=== PATIENT | male | born 1970 | race Caucasian/White ===

== ENCOUNTER 2023-08-25 12:41 | Inpatient (IN) ==
[2023-08-25] MEDS: ONDANSETRON INJ 2 MG/ML 2 ML VIAL IV STA (13:05)
[2023-08-25 13:20] LABS: Basophils # (auto) 0.04 K/uL (0.00-0.20); Basophils % (auto) 0.8 %; Eosinophils # (auto) 0.16 K/uL (0.00-0.50); Eosinophils % (auto) 3.1 %; Hematocrit (blood only) 44.8 % (42.0-52.0); Hemoglobin 15.4 g/dl (14.0-18.0); Immature Granulocytes # (auto) 0.02 K/uL (0.01-0.20); Immature Granulocytes % (auto) 0.4 %; Lymphocytes # (auto) 1.53 K/uL (1.20-3.40); Lymphocytes % (auto) 29.5 %; Mean Corpuscular Hemoglobin 29.6 pg (25.0-34.0); Mean Corpuscular Hgb Conc 34.4 g/dL (32.0-36.0); Mean Corpuscular Volume 86.2 fL (80.0-100.0); Mean Platelet Volume 11.1 fL (9.4-12.4); Monocytes # (auto) 0.36 K/uL (0.11-0.59); Monocytes % (auto) 6.9 %; Neutrophils # (auto) 3.08 K/uL (1.40-6.50); Neutrophils % (auto) 59.3 %; Platelet Count 151 K/uL (130-400); RDW Coefficient of Variation 12.7 % (11.5-14.5); RDW Standard Deviation 39.4 fL (36.4-46.3); White Blood Count 5.19 K/ul (4.8-10.8)
--- NOTE | 2023-08-25 13:23 | XRay Report ---
SINGLE VIEW CHEST CLINICAL HISTORY: Atypical chest pain FINDINGS: A PA chest radiograph is compared to chest x-ray and chest CT dated 07/01/2023. The cardiome diastinal silhouette is unremarkable. The lungs and pleural spaces are clear. No pneumothorax is seen . The bony thorax is grossly intact. IMPRESSION: No active disease in the chest. ACT 112: Negative or not required by law. Electronically signed by: Philip Dwyer M.D. 08/25/2023 1:21 PM
--- NOTE | 2023-08-25 13:35 | Emergency Department Note ---
Impression & Plan Precordial chest pain, Exertional chest pain, Acute electrocardiogram changes ED Provider Note NAME: REX SUNSHINE AGE: 52 SEX: M : 1970 ARRIVES VIA: Walk-In INFORMANT: [Patient] ED PROVIDER(S): [Philip Crenshaw MD] CHIEF COMPLAINT: Chest pain HISTORY OF PRESENT ILLNESS: The patient is a 52-year-old male who states that he has had exertional chest pain for really 3 months. He was seen in the ED in June of this year and had negative cardiac troponin testing. Patient has noticed escalating symptoms over the last several weeks. His symptoms are exertional. He feels short of breath and feels some burning in the chest with exertion that seems to go away with rest. He feels dizzy at times. The patient had a stress test today at [facility] and failed. He was sent to the hospital for admission and cardiac catheterization. Patient states that he has never had complete resolution of his chest pain since the stress test. He has some mild discomfort right now although, the pain is not as severe as it was during the stress test. He does not currently feel short of breath. He states he was given aspirin prior to being sent to this ED. PMHx/PSHx/Social Hx: See Below PHYSICAL EXAM: GENERAL: Patient is in no acute distress. HEENT: No acute trauma, normocephalic atraumatic, mucous membranes moist, no nasal congestion. NECK: No stridor, no adenopathy, no meningismus, trachea is midline. LUNGS: Clear to auscultation bilaterally, no wheeze, no rhonchi, breath sounds equal. HEART: Without murmurs gallops or rubs, regular rate and rhythm. ABDOMEN: Soft, nontender, no peritonitis. EXTREMITIES: No cyanosis, full range of motion of all the joints without pain or difficulty. NEUROLOGIC: Oriented x 3, no acute motor or sensory deficits, no focal weakness. SKIN: No jaundice, no diaphoresis. DIFFERENTIAL DIAGNOSIS: NM, angina, cardiac ischemia, anemia, bronchitis. EMERGENCY DEPARTMENT PROCEDURES: MEDICAL DECISION MAKING: There is no leukocytosis or concerning anemia. There is a normal platelet count. No renal failure or significant electrolyte abnormality. No concerning liver enzyme elevation. No evidence for pancreatitis. ECG shows a sinus rhythm with some subtle changes to the T waves along the anterior and lateral leads. These changes were new compared to a recent ECG on file. Cardiac enzyme testing x 1 was not consistent with acute cardiac injury. Chest x-ray did not show mediastinal widening, pneumonia or pneumothorax. On exam, patient was complaining of some chest discomfort that had been persisting since his failed stress test earlier. The patient was aggressively managed. He received sublingual nitroglycerin and then nitroglycerin paste. He was given 4 mg of IV Zofran. He was ordered for a bolus of IV heparin and placed on a heparin drip. The patient is feeling better since the treatment mentioned above. I did reach out and speak with Dr. Osorio of cardiology. The patient is going to go to the cardiac catheterization laboratory this afternoon. He is to be kept NPO. I spoke with case management, I spoke with the patient and his family. The on- call hospitalist was consulted. Prior/Outside records/notes reviewed: neeraj cardiology note from earlier today discussing his failed stress testing. ECG per my interpretation: Indication was chest pain. The ECG shows a normal sinus rhythm with a rate of 61. There are some subtle nonspecific T wave changes noted in the anterior and lateral leads. There is no acute ST elevation, no PVCs. The QTc is 392. Compared to an ECG from a 01 July 2023, the nonspecific ST change seen anterior and laterally appears new. Repeat ECG per my interpretation: Indication was chest pain. The ECG shows a normal sinus rhythm with some nonspecific change primarily in the anterior and lateral leads. There is no ST elevation, no PVCs. The QTc is 420. Compared to an ECG from earlier today, there is no significant change. Continuous Cardiac Monitoring per my interpretation: An order was placed for continuous cardiac monitoring. The monitor shows a rate of 62 with normal sinus rhythm. Imaging/x-ray results per my interpretation: Chest x-ray does not show mediastinal widening, pneumonia or pneumothorax. Chronic Medical/Social conditions affecting care: Care/Management discussed with: Case management, the on-call hospitalist. [facility] Curran, Dr. Osorio. Level of care consideration(s): After review of the information above and other included data: --I believe the patient requires escalation of care to admission Critical Care Note: I have personally spent 45 minutes of critical care time in the direct management of this patient. This includes bedside care, interpretation of diagnostic studies, and testing, discussion with consultants, patient, and family members, and other required patient management activities. This 45 minutes is in excess of all separately billable procedures. DISPOSITION: Admission with cardiology consult Past Med/Surg History Medical History Dyslipidemia Lumbar herniated disc BPH (benign prostatic hyperplasia) Family history of heart disease father had heart attack Sleep apnea cpap Situational anxiety Hypothyroidism H/O hemorrhoids H/O testicular cancer dx 2006, sx tx. H/O alcohol abuse quit 3 years ago Surgical History S/P epidural steroid injection [place] teeth removed S/P hemorrhoidectomy S/P colonoscopy Precancerous polyp, 2018 w/ 5 yrs f/u S/P orchiectomy S/P vasectomy S/P appendectomy Family History Father Myocardial infarction Gallbladder disease Heart disease Dementia Brother Dyslipidemia Denies family history of Ovarian cancer Prostate cancer Breast cancer Colorectal cancer Social History Smoking Status: Never smoker Second Hand Exposure: No; Do You Dip or Chew Tobacco: No; Hx Alcohol Use: No Hx Substance Use: No Preferred Language: Khmer Communication Ability: Effective Visual Impairment: No Limitations Hearing Ability: Normal Traffic Lieutenant Required: No Beliefs That Will Affect Care: None marital status: Current Living Situation: Spouse current occupational status: employed current occupation: [employer] How many Children do You have: 3 Feels Safe at Home: Yes Childhood Exposure to Second-Hand Smoke: No Diet: regular caffeine: Yes during the past year weight has: remained stable Dental Care, Regularly: Yes Physical Activity Frequency: Daily Seatbelt Use: always Sunscreen Use: Yes Assistive Devices: CPAP and Glasses Allergies Allergies Allergy/AdvReac Type Severity Reaction Status Date / Time No Known Allergies Allergy Verified 07/22/23 13:38 Home Meds Home Medications Medication Instructions Recorded Confirmed cholecalciferol (vitamin D3) 50 50 mcg PO QAM 03/06/21 08/25/23 mcg (2,000 unit) capsule lutein 20 mg capsule 20 mg PO QAM 03/06/21 08/25/23 Medical Marijuana 10 mg PO UD PRN Pain/stress 04/28/23 08/25/23 rosuvastatin 10 mg tablet 20 mg PO QAM 04/28/23 08/25/23 [place] Fish Oil 1 cap PO QAM 07/01/23 08/25/23 Previous Rx's Medication Instructions Recorded propranolol 10 mg tablet 10 mg PO BID PRN performance 10/02/22 anxiety #60 tabs levothyroxine 75 mcg capsule 75 mcg PO QAM #90 caps 05/07/23 alfuzosin 10 mg tablet,extended 10 mg PO HS #90 tabs 07/07/23 release 24 hr (Uroxatral) finasteride 5 mg tablet 5 mg PO HS #90 tabs 07/07/23 Results & Data (ED) Vital Signs Vital Signs - 24 hr 08/25/23 12:47 08/25/23 14:30 08/25/23 14:30 Temperature 36.1 C L Temperature Source Temporal Artery Scan Pulse Rate 59 L 56 L Pulse Rate [Left Finger] Pulse Rate from SpO2 Sensor 55 L Pulse Rhythm [Left Finger] Pulse Strength [Left Finger] Respiratory Rate 18 15 Respiratory Effort / Characteristics Non-Labored Spontaneous Respiratory Depth Normal Respiratory Pattern Regular Blood Pressure 130/79 116/73 Blood Pressure [Right Arm] Blood Pressure Mean 96 79 Blood Pressure Mean [Right Arm] Blood Pressure Position [Right Arm] Pulse Oximetry 94 96 Oxygen Delivery Method Room Air Sepsis Recent Fever Within 48 Hours No Sepsis New/Unexplained Change in Mental Status N/A Sepsis Action Taken by Nursing No Action Required 08/25/23 14:43 08/25/23 15:10 Temperature Temperature Source Pulse Rate 62 Pulse Rate [Left Finger] 85 Pulse Rate from SpO2 Sensor Pulse Rhythm [Left Finger] Regular Pulse Strength [Left Finger] Normal Respiratory Rate 16 Respiratory Effort / Characteristics Non-Labored Respiratory Depth Normal Respiratory Pattern Regular Blood Pressure Blood Pressure [Right Arm] 132/81 Blood Pressure Mean Blood Pressure Mean [Right Arm] 98 Blood Pressure Position [Right Arm] Lying Pulse Oximetry 100 Oxygen Delivery Method Room Air Sepsis Recent Fever Within 48 Hours Sepsis New/Unexplained Change in Mental Status Sepsis Action Taken by Fdc Medications Current Medication List: was personally reviewed by me Laboratory Data Attestation: I reviewed the patient's lab results. 08/25/23 12:59 08/25/23 12:59 Lab Results 08/25/23 Range/Units 12:59 WBC 5.19 (4.8-10.8) K/ul RBC 5.20 (4.70-6.10) M/uL Hgb 15.4 (14.0-18.0) g/dl Hct 44.8 (42.0-52.0) % MCV 86.2 (80.0-100.0) fL MCH 29.6 (25.0-34.0) pg MCHC 34.4 (32.0-36.0) g/dL RDW Std Deviation 39.4 (36.4-46.3) fL RDW Coeff of [place] 12.7 (11.5-14.5) % Plt Count 151 (130-400) K/uL MPV 11.1 (9.4-12.4) fL Immature Gran % (Auto) 0.4 % Neut % (Auto) 59.3 % Lymph % (Auto) 29.5 % Camp % (Auto) 6.9 % Eos % (Auto) 3.1 % Baso % (Auto) 0.8 % Neut # (Auto) 3.08 (1.40-6.50) K/uL Lymph # (Auto) 1.53 (1.20-3.40) K/uL Camp # (Auto) 0.36 (0.11-0.59) K/uL Eos # (Auto) 0.16 (0.00-0.50) K/uL Baso # (Auto) 0.04 (0.00-0.20) K/uL Immature Gran # (Auto) 0.02 (0.01-0.20) K/uL Sodium 140 (136-145) mmol/L Potassium 3.7 (3.5-5.1) mmol/L Chloride 109 H (98-107) mmol/L Carbon Dioxide 25 (21-32) mmol/L Anion Gap 6 (3-11) BUN 16 (6-23) mg/dl Creatinine 0.88 (0.6-1.4) mg/dl Est Cr Clr Drug Dosing 122.3 ml/min Est GFR ( Amer) 115.3 ml/min Est GFR (Non-Af Amer) 99.5 ml/min BUN/Creatinine Ratio 18.2 (10-20) Glucose 96 (70-99(Fasting)) mg/dl Calcium 9.2 (8.6-10.3) mg/dl Magnesium 2.1 (1.7-2.4) mg/dl Total Bilirubin 0.7 (0.2-1.0) mg/dl AST 22 (13-39) U/L ALT 26 (7-52) U/L Alkaline Phosphatase 57 (34-104) U/L Troponin I High Sens 3.8 (0-20) pg/ml Total Protein 6.8 (6.0-8.3) gm/dl Albumin 4.5 (3.4-5.0) gm/dl Globulin 2.3 L (2.5-4.0) gm/dl Albumin/Globulin Ratio 2.0 (0.9-2) Lipase 15 (11-82) U/L Administered Medications Heparin Sodium/Dextrose (Heparin Sodium/Dextrose) 25,000 units in 500 mls @ 20 mls/hr IV .Q24H [facility]; Protocol Stop: 09/24/23 13:59 Last Admin: 08/25/23 14:34 Dose: 1,000 units/hr, 20 mls/hr Documented By: OC Co-signed By: GGG Discontinued Medications Heparin Sodium (Porcine) (Heparin Sod (Porcine) 1000 Unit/Ml) 4,000 units IV NOW ONE Stop: 08/25/23 14:16 Last Admin: 08/25/23 14:35 Dose: 4,000 units Documented By: OC Co-signed By: ROBERT Nitroglycerin (Nitroglycerin 2% Ointment 30gm Tube) 1 inch EXT NOW STA Stop: 08/25/23 13:29 Last Admin: 08/25/23 13:38 Dose: 1 inch Documented By: OC Nitroglycerin (Nitroglycerin Sl 0.4 Mg/Tab Tab) 0.4 mg SL NOW STA Stop: 08/25/23 13:36 Last Admin: 08/25/23 13:37 Dose: 0.4 mg Documented By: OC Ondansetron HCl (Ondansetron Inj 2 Mg/Ml 2 Ml Vial) 4 mg IV NOW STA Stop: 08/25/23 13:05 Last Admin: 08/25/23 13:05 Dose: Not Given Documented By: AMADA Imaging Data Radiologist's Impression: Chest X-Ray 08/25/23 12:50 SINGLE VIEW CHEST CLINICAL HISTORY: Atypical chest pain FINDINGS: A PA chest radiograph is compared to chest x-ray and chest CT dated 07/01/2023. The cardiomediastinal silhouette is unremarkable. The lungs and pleural spaces are clear. No pneumothorax is seen. The bony thorax is grossly intact. IMPRESSION: No active disease in the chest. ACT 112: Negative or not required by law. Electronically signed by: Philip Dwyer M.D. 08/25/2023 1:21 PM Discharge Plan Visit Data Chief Complaint: Referred by Doctor Stated Complaint: FAILED STRESS TEST 08/25/23 - REF BY DR CURRAN ED Provider: Philip Crenshaw Discharge Problem: Precordial chest pain, Exertional chest pain, Acute electrocardiogram changes Patient Disposition: Admitted As Inpatient Condition: Serious Discharge Instructions Interventions: ED Discharge Assessment Last Done: 08/25/23 14:58
[2023-08-25] MEDS: NITROGLYCERIN SL 0.4 MG/TAB TAB SL STA (13:37)
[2023-08-25] MEDS: NITROGLYCERIN 2% OINTMENT 30GM TUBE EXT STA (13:38)
[2023-08-25 13:43] LABS: Albumin Level 4.5 gm/dl (3.4-5.0); Bilirubin,Total 0.7 mg/dl (0.2-1.0); Calcium 9.2 mg/dl (8.6-10.3); Potassium 3.7 mmol/L (3.5-5.1)
[2023-08-25] MEDS ORDERED: Heparin IV Adult Wt-Based Low-Dose w/ INITIAL Bolus Protocol IV SCH (13:45)
[2023-08-25 13:49] LABS: BUN Creatinine Ratio 18.2 (10-20); Creatinine Clr Calc Pharmacy 122.3 ml/min; Est GFR (African American) 115.3 ml/min; Est GFR (Non-African American) 99.5 ml/min; Globulin 2.3 gm/dl (2.5-4.0); Total Protein 6.8 gm/dl (6.0-8.3)
[2023-08-25] MEDS ORDERED: HEPARIN SOD (PORCINE) 1000 UNIT/ML IV ONE (13:50)
[2023-08-25 13:52] LABS: Troponin I High Sensitivity 3.8 pg/ml (0-20)
--- NOTE | 2023-08-25 14:08 | History & Physical Report ---
Date of Service August 25, 2023 Assessment & Plan (1) Abnormal stress test: Plan: -Admit to the PCU on tele and pulse oximetry -Currently stable but with ongoing 2/10 left-sided chest pain while at rest -Was sent to the ED from [facility] after he failed his outpatient stress test this am -Initial high sen trop in the ED was WNL but patient reportedly had dynamic ECG changes during his stress test -Was given one dose of SL Nitroglycerine, started on 1 inch of Nitroglycerine paste, and started on a low dose, weight based heparin drip w/bolus prior to admission -Patient was given full dose aspirin prior to ED arrival per the ED staff -Will continue heparin drip and nitroglycerine past at this time -Spoke with [facility], consult placed >They will be taking the patient to the labor and delivery registered nurse shortly -Will start prn Morphine for recurrent chest pain -Will wait for Cardiac Cath results for further management -NPO until stable from a cardiac standpoint -Heparin drip for DVT PPX -Will continue to trend high sen trop overnight -AM CBC, CMP, mag, PT/INR (2) Hypothyroidism: Plan: -Continue levothyroxine (3) Dyslipidemia: Plan: -Continue statin Plan The patient was discussed with Dr. Owens at the time of the admission History of Present Illness Chief Complaint: Chest pain/abnormal ECG during outpatient stress test Primary Care Provider: Zacarias Grayson, III, DIDI Brain is a 52 year old male with a PMH significant for hyperlipidemia, previous shingles infection of the left chest/back, BPH, and hypothyroidism who was sent to the [facility] ED from [facility] on 08/25/23 after he failed an outpatient stress test. Per the ED staff who spoke with the [facility] team, the patient has been having ongoing left sided chest pain and LAYNE since June. He was seen in the [facility] last week by Dr. Figueroa who scheduled the stress test for today. During the stress test the patient experienced recurrend left sided chest pain with LAYNE and dynamica changes on his ECG. The [facility] team report that his echocardiogram was WNL during the stress test. On arrival to the ED he remained stable. He was still experiencing chest pain on arrival and was given one dose of SL nitroglycerine, 1 inch of nitroglycerine paste, and was started on a low-dose, weight based heparin drip w/bolus. At the time of the exam the patient was sitting in bed in no acute distress with his bedside. He confirms the above history. He was also diagnosed with shingles on the left chest/back in June and completed treatment. He confirms that the chest pain he has been continuing to experience is located in the left anterior chest and does not follow the distribution of his previous shingles infection. The pain is described as a sharp/pressure like sensation in the left anterior chest that is exacerbated with exertion and takes up to 30 minutes to dissipate after he rests. His pain is currently a 2/10 after receiving the initial treatment in the ED. He denies a previous hx of Cardiac disease, but his father had a CABG at the age of 41. He denies tobacco use. Please refer to Dr. Owens's attestation for any changes to the treatment plan Allergies Allergy/AdvReac Type Severity Reaction Status Date / Time No Known Allergies Allergy Verified 07/22/23 13:38 Home Medications Medication Instructions Recorded Confirmed Type cholecalciferol (vitamin D3) 50 50 mcg PO QAM 03/06/21 08/25/23 History mcg (2,000 unit) capsule lutein 20 mg capsule 20 mg PO QAM 03/06/21 08/25/23 History propranolol 10 mg tablet 10 mg PO BID PRN performance 10/02/22 08/25/23 Rx anxiety #60 tabs Medical Marijuana 10 mg PO UD PRN Pain/stress 04/28/23 08/25/23 History rosuvastatin 10 mg tablet 20 mg PO QAM 04/28/23 08/25/23 History levothyroxine 75 mcg capsule 75 mcg PO QAM #90 caps 05/07/23 08/25/23 Rx [place] Fish Oil 1 cap PO QAM 07/01/23 08/25/23 History alfuzosin 10 mg tablet,extended 10 mg PO HS #90 tabs 07/07/23 08/25/23 Rx release 24 hr (Uroxatral) finasteride 5 mg tablet 5 mg PO HS #90 tabs 07/07/23 08/25/23 Rx Past Med/Surg History Medical History (Updated 08/25/23 @ 14:56 by Felipe Hairston PA-C) Dyslipidemia Lumbar herniated disc BPH (benign prostatic hyperplasia) Family history of heart disease father had heart attack Sleep apnea cpap Situational anxiety Hypothyroidism H/O hemorrhoids H/O testicular cancer dx 2007, sx tx. H/O alcohol abuse quit 3 years ago Surgical History S/P epidural steroid injection [place] teeth removed S/P hemorrhoidectomy S/P colonoscopy Precancerous polyp, 2018 w/ 5 yrs f/u S/P orchiectomy S/P vasectomy S/P appendectomy Family History Father Myocardial infarction Gallbladder disease Heart disease Dementia Brother Dyslipidemia Denies family history of Ovarian cancer Prostate cancer Breast cancer Colorectal cancer Social History Smoking Status: Never smoker Second Hand Exposure: No; Do You Dip or Chew Tobacco: No; Hx Alcohol Use: No Hx Substance Use: No Preferred Language: Icelandic Communication Ability: Effective Visual Impairment: No Limitations Hearing Ability: Normal Marriage And Family Counselor Required: No Beliefs That Will Affect Care: None marital status: Current Living Situation: Spouse current occupational status: employed current occupation: [employer] How many Children do You have: 3 Feels Safe at Home: Yes Childhood Exposure to Second-Hand Smoke: No Diet: regular caffeine: Yes during the past year weight has: remained stable Dental Care, Regularly: Yes Physical Activity Frequency: Daily Seatbelt Use: always Sunscreen Use: Yes Assistive Devices: CPAP and Glasses Physical Exam Physical Exam: Physical Exam: General: In no acute distress, stated age, well-nourished, non-toxic appearing HEENT: Normocephalic, atraumatic, no scleral icterus, pupils around round, symmetrical, and reactive to light, moist mucus membranes, trachea midline, no thyromegaly Chest/Pulm: No reproducible pain on palpation of the chest, No respiratory distress, symmetrical chest expansion, clear breath sounds throughout Cardiac: RRR, no murmurs noted Abdomen: Negative for ascites and bruising, normoactive bowel sounds, soft, non-tender to palpation throughout Musculoskeletal: Symmetrical and without signs of acute trauma, upper and lower extremities with full ROM, no atrophy, spasticity, or flaccidity Extremities: Radial, dorsalis pedis, and posterior tibial pulses are intact and symmetrical, no edema noted in the BL LE's Skin: Warm, dry, no rashes , lesions, or scars noted Neuro: Alert and oriented to person, place, month, year, and president, no focal defects, no tremors noted Psych: No acute distress, calm and cooperative during the exam Results & Data Results & Data Vital Signs (Past 12 Hours) Vital Signs Temp Pulse Resp BP Pulse Ox O2 Del Method 08/25/23 12:47 36.1 C L 59 L 18 130/79 94 Room Air Laboratory Results Abnormal lab results 08/25/23 Range/Units 12:59 Chloride 109 H (98-107) mmol/L Globulin 2.3 L (2.5-4.0) gm/dl Diagnostic Findings Chest X-Ray 08/25/23 12:50 SINGLE VIEW CHEST CLINICAL HISTORY: Atypical chest pain FINDINGS: A PA chest radiograph is compared to chest x-ray and chest CT dated 07/01/2023. The cardiomediastinal silhouette is unremarkable. The lungs and pleural spaces are clear. No pneumothorax is seen. The bony thorax is grossly intact. IMPRESSION: No active disease in the chest. ACT 112: Negative or not required by law. Electronically signed by: Philip Dwyer M.D. 08/25/2023 1:21 PM ECG Additional Comments: Normal sinus rhythm Nonspecific T wave abnormality Abnormal ECG When compared with ECG of 01-JUL-2023 09:35, No significant change was found Code Status & VTE Plan Code Status Full code VTE Prophylaxis Plan VTE Prophylaxis will be ordered: Yes Supervising Physician Co-Signing Physician Notes Patient seen and examined, chart reviewed, case discussed with Felipe Hairston PA-C and I agree with the assessment and plan as above except as otherwise noted Labs and images reviewed 52-year-old male with past medical history of hyperlipidemia, prior shingles, hypothyroidism who presents for evaluation after a failed outpatient stress test. He is seen at the bedside following both [facility] and cardiology evaluation. Continues to have a bandlike left-sided chest pain 2/10 despite nitro, Nitropaste, morphine treatment. He has been heparinized. He is to be taken within the next 15 minutes to cardiac cath for ischemic evaluation. Lungs are c lear, legs are without pitting edema. Agree with assessment and management above. Further recommendations pending cath result PG Care Time/CCT Total # of Minutes Spent Total Time Spent with Patient: Total time spent is greater than 50% in coordination of care (as documented) at patient's floor/unit and/or counseling patient: [place] [address] INT INP/OBS CARE 3/75MIN Patient Type Established Medical Decision Making High Complexity Diagnoses Abnormal stress test R94.39 Hypothyroidism E03.9 Dyslipidemia E78.5
[2023-08-25 14:18] LABS: Magnesium 2.1 mg/dl (1.7-2.4)
[2023-08-25] MEDS ORDERED: MoRPHine SULFATE 2 MG/ML CARP IV PRN (14:19)
[2023-08-25] MEDS: HEPARIN SODIUM/DEXTROSE 25,000 UNITS/500 ML BAG IV SCH (14:34)
[2023-08-25] MEDS: HEPARIN SOD (PORCINE) 1000 UNIT/ML IV ONE (14:35)
[2023-08-25] MEDS: NITROGLYCERIN/D5W 100MCG/ML 20ML SYR ONE (16:15)
[2023-08-25] MEDS: niCARdipine HCL INJ 2.5 MG/ML 10 ML AMP ONE (16:15)
--- NOTE | 2023-08-25 17:09 | Pre Anesthesia Assessment ---
Date of Service August 25, 2023 Pre Sedation Assessment Vital Signs Temp Pulse Pulse Resp BP BP Pulse Ox 08/25/23 15:10 85 16 132/81 100 08/25/23 14:43 62 08/25/23 14:30 116/73 08/25/23 14:30 56 L 15 96 08/25/23 12:47 36.1 C L 59 L 18 130/79 94 O2 Del Method 08/25/23 15:10 Room Air 08/25/23 14:43 08/25/23 14:30 08/25/23 14:30 08/25/23 12:47 Room Air Cardiovascular RRR, no murmur, no edema Respiratory normal respiratory effort, lungs clear to auscultation Pre-Sedation Airway Assessment Smoking Status: Never smoker Mallampati 2 ASA 3 Notes The planned sedation has been discussed with the patient. Informed Consent was obtained. I have identified the patient, determined the appropriateness of sedation and have assessed the patient immediately prior to the procedure. All medicine(s) and interventions are by my order.
--- NOTE | 2023-08-25 17:12 | Post Anesthesia Assessment ---
Date of Service August 25, 2023 Post Sedation Assessment Vital Signs Temp Pulse Pulse Resp BP BP Pulse Ox 08/25/23 15:10 85 16 132/81 100 08/25/23 14:43 62 08/25/23 14:30 116/73 08/25/23 14:30 56 L 15 96 08/25/23 12:47 36.1 C L 59 L 18 130/79 94 O2 Del Method 08/25/23 15:10 Room Air 08/25/23 14:43 08/25/23 14:30 08/25/23 14:30 08/25/23 12:47 Room Air Recovery Score Activity: Moves 4 extremities Respiration: Deep Breath/Cough Circulation: +/-20% PreAnes Value Consciousness: Fully Awake Oxygen Saturation: > 92% On Room Air Discharge Sedation Level of Care: Fast Track Phase II Post Sedation Plan On clinical assessment, the patient appears to have tolerated the sedation without complications. Patient is recovering as anticipated. Patient will continue to be monitored by nursing and may be discharged when sedation discharge criteria are met per below protocol. Upon Completions of procedure up to 15 minutes continue every 5 minute vital signs and the P.A.R. score; then discharge to a Phase I or Fast Track to Phase II per the following guidelines: * Discharge Patient to appropriate Phase II area if PAR is 8 or greater or r eturn to pre- procedure baseline. The post - procedure orders will be as directed. * If PAR score is less than 8 or not return to pre-procedure baseline then patient will follow Phase I monitoring till PAR is reached for Phase II. The Phase I may be done in procedure room or may call to secure a Phase I area. * If naloxone or flumazenil are used for reversal, hold in Phase I for continued monitoring from when last reversal dose was given for a minimum of 60 minutes or longer pending the nurse and/or physician discretion of patient condition before discharge to Phase II. Please call the Sedation Physician to re-evaluate and complete post-note for discharge to Phase II area. Do NOT discharge from procedure sedation or Phase 1 until post- sedation evaluation note is complete by procedure /sedation MD Sedation Discharge Instructions to be given to the patient at discharge to home. [facility] Procedure Codes (Charges) Indication for Procedure Indication for procedure: Unstable angina Sedation/Anesthesia Procedure 1: Sedation/Anesthesia: 72481 Mod Sedation by the same physician;Init15 Min Child Age 5 & Up (Initial 15 min start 1544) Total Sedation Time (minutes): 61 Procedure 2: Sedation/Anesthesia: 22949 Mod Sedation by the same physician; Ea [id number] Minutes (Additional 46 min, end time 1645) Total Sedation Time (minutes): 61
--- NOTE | 2023-08-25 17:24 | Electrocardiogram Report ---
Test Reason : Blood Pressure : / mmHG Vent. Rate : 061 BPM Atrial Rate : 061 BPM P-R Int : 172 ms QRS Dur : 088 ms QT Int : 418 ms P-R-T Axes : 029 045 046 degrees QTc Int : 420 ms Normal sinus rhythm Nonspecific T wave abnormality Abnormal ECG When compared with ECG of 01-JUL-2023 09:35, No significant change was found Confirmed by Kaden Cabrera ([id number]) on 08/25/2023 5:23:56 PM Referred By: REFERRED SELF Confirmed By:Geoff Cabrera
--- NOTE | 2023-08-25 17:38 | Cardiology Consultation ---
Date of Consultation August 25, 2023 Assessment & Plan (1) Coronary artery disease involving lower sioux coronary artery with unstable angina pectoris: (2) Abnormal stress test: (3) Postherpetic neuralgia: (4) Dyslipidemia, goal LDL below 70: Plan 52-year-old male with recurrent resting anginal symptoms post stress testing. Recommend addition of IV heparin. Risk, benefit, and alternative to coronary angiography discussed. He is agreeable to proceed. Cardiac catheterization will be performed today with Dr. Rivera. Continue aspirin and high intensity statin therapy. Consider addition of low-dose beta-yudith during hospitalization. Further recommendations pending result of cardiac catheterization. I spent a total of 45 minutes on the date of service in preparation, delivery, and documentation of the care provided to this patient, excluding any time spent in the performance of separately billed services. History of Present Illness Reason for Consultation: Abnormal stress test Requesting Physician: Felipe Hairston PA-C Attending Physician: Keagan Owens MD History of Present Illness 52-year-old male recently evaluated by the undersigned in the outpatient setting due to chest discomfort. He was referred today to the cardiology clinic at [facility] for exercise stress testing. During the stress test, patient developed anginal symptoms and ST depressions. Symptoms initially resolved with rest and occurred shortly after stress testing completed. He was treated with sublingual nitroglycerin and referred to the ER. In the ER, patient again noted with current chest discomfort. Mild improvement with sublingual nitroglycerin. Topical nitrates applied. Currently notes waxing and waning chest discomfort ranging from 2/10 up to 4/10. No associated shortness of breath, nausea, radiation, or diaphoresis. Recent history significant for shingles infection involving left side of his torso. present at bedside. She offers no additional concerns/complaints. Allergies Allergy/AdvReac Type Severity Reaction Status Date / Time No Known Allergies Allergy Verified 07/22/23 13:38 Home Medications Medication Instructions Recorded Confirmed Type cholecalciferol (vitamin D3) 50 50 mcg PO QAM 03/06/21 08/25/23 History mcg (2,000 unit) capsule lutein 20 mg capsule 20 mg PO QAM 03/06/21 08/25/23 History propranolol 10 mg tablet 10 mg PO BID PRN performance 10/02/22 08/25/23 Rx anxiety #60 tabs Medical Marijuana 10 mg PO UD PRN Pain/stress 04/28/23 08/25/23 History rosuvastatin 10 mg tablet 20 mg PO QAM 04/28/23 08/25/23 History levothyroxine 75 mcg capsule 75 mcg PO QAM #90 caps 05/07/23 08/25/23 Rx [place] Fish Oil 1 cap PO QAM 07/01/23 08/25/23 History alfuzosin 10 mg tablet,extended 10 mg PO HS #90 tabs 07/07/23 08/25/23 Rx release 24 hr (Uroxatral) finasteride 5 mg tablet 5 mg PO HS #90 tabs 07/07/23 08/25/23 Rx Patient History Medical History Dyslipidemia Lumbar herniated disc BPH (benign prostatic hyperplasia) Family history of heart disease father had heart attack Sleep apnea cpap Situational anxiety Hypothyroidism H/O hemorrhoids H/O testicular cancer dx 2006, sx tx. H/O alcohol abuse quit 3 years ago Surgical History S/P epidural steroid injection [place] teeth removed S/P hemorrhoidectomy S/P colonoscopy Precancerous polyp, 2018 w/ 5 yrs f/u S/P orchiectomy S/P vasectomy S/P appendectomy Family History Father Myocardial infarction Gallbladder disease Heart disease Dementia Brother Dyslipidemia Denies family history of Ovarian cancer Prostate cancer Breast cancer Colorectal cancer Social History Smoking Status: Never smoker Second Hand Exposure: No; Do You Dip or Chew Tobacco: No; Hx Alcohol Use: No Hx Substance Use: No Preferred Language: Divehi Communication Ability: Effective Visual Impairment: No Limitations Hearing Ability: Normal Gis Database Administrator Required: No Beliefs That Will Affect Care: None marital status: Current Living Situation: Spouse current occupational status: employed 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 How many Children do You have: 3 Feels Safe at Home: Yes Childhood Exposure to Second-Hand Smoke: No Diet: regular caffeine: Yes during the past year weight has: remained stable Dental Care, Regularly: Yes Physical Activity Frequency: Daily Seatbelt Use: always Sunscreen Use: Yes Assistive Devices: CPAP and Glasses Review of Systems Review of Systems: All systems reviewed & are unremarkable except as noted in Subjective Physical Exam Constitutional: well nourished; no acute distress Respiratory: no respiratory distress, no labored breathing and no retractions Auscultation: no crackles, no rales, no rhonchi and no wheezes Cardiovascular: Rate/Rhythm: regular rate and regular rhythm Heart Sounds: normal S1 and normal S2 Vessels: no JVD and no carotid bruit Extremities: no edema Gastrointestinal (Abdomen): Inspection/Auscultation: abdomen normal to inspection and normal bowel sounds; abdomen not distended Percussion/Palpation: abdomen soft; abdomen nontender, no guarding and abdomen not rigid Neurologic: CN's II-XI intact bilaterally and moves all extremities; no focal motor deficits Results & Data Vital Signs (Past 12 Hours) Vital Signs Temp Pulse Pulse Resp BP BP BP 08/25/23 17:15 36.6 C 54 L 17 109/71 08/25/23 17:00 36.3 C L 50 L 17 120/75 08/25/23 15:10 85 16 132/81 08/25/23 14:43 62 08/25/23 14:30 116/73 08/25/23 14:30 56 L 15 08/25/23 12:47 36.1 C L 59 L 18 130/79 Pulse Ox O2 Del Method 08/25/23 17:15 97 Room Air 08/25/23 17:00 96 Room Air 08/25/23 15:10 100 Room Air 08/25/23 14:43 08/25/23 14:30 08/25/23 14:30 96 08/25/23 12:47 94 Room Air Laboratory Results Cardiac Enzymes 08/25/23 Range/Units 12:59 AST 22 (13-39) U/L Troponin I High Sens 3.8 (0-20) pg/ml CBC 08/25/23 Range/Units 12:59 WBC 5.19 (4.8-10.8) K/ul RBC 5.20 (4.70-6.10) M/uL Hgb 15.4 (14.0-18.0) g/dl Hct 44.8 (42.0-52.0) % Plt Count 151 (130-400) K/uL Neut # (Auto) 3.08 (1.40-6.50) K/uL Lymph # (Auto) 1.53 (1.20-3.40) K/uL [place] # (Auto) 0.36 (0.11-0.59) K/uL Eos # (Auto) 0.16 (0.00-0.50) K/uL Baso # (Auto) 0.04 (0.00-0.20) K/uL Comprehensive Metabolic Panel 08/25/23 Range/Units 12:59 Sodium 140 (136-145) mmol/L Potassium 3.7 (3.5-5.1) mmol/L Chloride 109 H (98-107) mmol/L Carbon Dioxide 25 (21-32) mmol/L BUN 16 (6-23) mg/dl Creatinine 0.88 (0.6-1.4) mg/dl Glucose 96 (70-99(Fasting)) mg/dl Calcium 9.2 (8.6-10.3) mg/dl AST 22 (13-39) U/L ALT 26 (7-52) U/L Alkaline Phosphatase 57 (34-104) U/L Total Protein 6.8 (6.0-8.3) gm/dl Albumin 4.5 (3.4-5.0) gm/dl Intake and Output 08/25/23 08/25/23 08/25/23 06:59 14:59 22:59 Other: Weight 97.8 kg 97 kg Weight Measurement Method Chair Scale Stated by Patient Patient Weight 08/26/23 06:59 Weight 97 kg (1) Coronary artery disease involving lower [place] coronary artery with unstable angina pectoris [place] vs. transplanted heart: lower sioux heart Qualified Code(s): I25.110 - Atherosclerotic heart disease of lower sioux coronary artery with unstable angina pectoris
[2023-08-25] MEDS: HEPARIN (PORCINE) 1000 UNIT/ML 10 ML (CATH LAB USE ONLY) ONE (17:42)
[2023-08-25] MEDS: fentaNYL citrate PF 100 MCG/2 ML VIAL ONE (17:42)
[2023-08-25] MEDS: NITROGLYCERIN SL 0.4 MG/TAB TAB ONE (17:42)
[2023-08-25] MEDS: MIDAZOLAM HCL 1 MG/ML 2ML VIAL ONE ×2 (17:42→17:43)
[2023-08-25] MEDS: OPTIRAY 350 ONE (17:42)
[2023-08-25] MEDS: TICAGRELOR 90 MG TAB ONE (17:43)
[2023-08-25] MEDS: Heparin IV Adult Wt-Based Low-Dose w/ INITIAL Bolus Protocol IV STA (17:44)
--- NOTE | 2023-08-25 17:46 | Cardiac Catheterization ---
ACC Data: Transmission Design Engineer Cardiac Status Clinical evaluation leading to the procedure CAD Presenation: Unstable angina Anginal Classification: CCS IV Heart Failure: No Cardiogenic Shock within 24 Hours: No Cardiac Arrest within 24 Hours: No Imaging Studies Past 6 Months: Yes Stress Studies Past 6 Months: Yes Stress Echocardiogram: Yes - Positive Coronary Anatomy Dominant: Right Left Main (% Stenosis): Normal LAD (% Stenosis): Proximal (40 to 50%), Mid (40 to 50%) and Distal (60 to 70%) D1 (% Stenosis): Normal D2 (% Stenosis): Normal Circumflex (% Stenosis): Ostial (20%) OM1 (% Stenosis): Mid (80 to 90% plus thrombus) L PL1 (% Stenosis): Normal RCA (% Stenosis): Proximal (Mild) and Mid (50 to 70%) R PDA (% Stenosis): Normal R PL1 (% Stenosis): Normal Ramus (% Stenosis): Normal (Diffuse less than 20%) Diagnostic Physicians Name: Josh Rivera MD, PhD Closure Device Percutaneous Entry Location: Radial Closure Device: Radial Band Recommendations: Medical Therapy and/or Counseling and PCI without planned CABG PCI Indication: Unstable Angina Lesion Segment Name: LCx/OM1 Culprit Artery: Yes Stenosis Prior to Rx (%): 80 to 90% Pre-Procedure JANIS Flow: 2 Previously Treated Lesion: No Lesion Complexity: Non-High/Non-C Lesion Length (mm): 15 mm Thrombus Present: Yes Bifurcation Lesion: Yes Guidewire Across Lesion: Yes Lesion #2 Segment Name: Distal LAD Culprit Artery: No Stenosis Prior to Rx (%): 70% Chronic Total Occlusion: No FFR: Yes (IFR positive) Pre-Procedure JANIS Flow: 3 Previously Treated Lesion: No Lesion Complexity: Non-High/Non-C Lesion Length (mm): 12 mm Thrombus Present: No Bifurcation Lesion: No Guidewire Across Lesion: Yes Intraprocedure Events Significant Disection: No Perforation: No Cardiac Cath Procedure Full Procedure Date August 25, 2023 Pre-Procedure Diagnosis Pre-Procedure Diagnosis: Acute Coronary Syndrome AUC Score AUC Score: 07 Post-Procedure Diagnosis Post-Procedure Diagnosis: Severe CAD and Successful PCI Procedure(s) Performed Procedure(s) Performed: Coronary Angiography, Drug Eluting Stent and Fractional Flow [place] Freight Inspector Josh Rivera MD, PhD Estimated Blood Loss Estimated Blood Loss: 10 cc Medication(s) Medication(s): Fentanyl, Heparin, Lidocaine 1%, Nicardipine, Nitroglycerin and Versed Summary of Findings Brief description: Patient was brought to the cardiac catheterization suite where he was shaved and prepped in a sterile fashion. Sedated using IV Versed and fentanyl. Soft tissues of the right wrist were anesthetized using 2 mL of 1% Xylocaine. The right radial artery was accessed with a modified Seldinger technique and a 6 [place] radial artery glide sheath was placed. Patient was provided anticoagulation with IV heparin and antispasmodics including nicardipine and nitroglycerin. All catheters were advanced and exchanged over a 0.035 J-tip wire. Left coronary angiography in orthogonal views with a 5 [place] 4 diagnostic catheter. Right coronary angiography in orthogonal views with a 5 [place] 4 diagnostic catheter. Diagnostic catheters were removed. Decision was made to proceed first with IFR analysis of the LAD. A 6 [place] EBU 3.0 guide catheter was used to engage the left main coronary artery. ACT was checked and additional heparin was provided to achieve therapeutic anticoagulation. ACT was checked intermittently throughout the case and additional heparin provided as needed. The Omni Doppler wave wire was advanced through the guide catheter and positioned with its transducer just distal to the guide catheter tip. The system was flushed with normal saline. Pressures were equalized. The guidewire was then advanced and positioned distal to the lesion in the LAD. iFR was sampled 3 times and recorded. The Doppler wire was then removed from the patient. A BMW reversal guidewire was advanced through the guide catheter and positioned distally in the circumflex/OM vessel. Lesion was predilated using a 2.0 x 15 mm trek balloon with first inflation to 8 daysi and second to 10 daysi. A 2.25 x 18 mm [place] drug-eluting stent was then positioned across the lesion where it was deployed at 12 daysi. Stent balloon was removed and airplane pilot commercial angiography was performed. Decision was made to place a second stent in an overlapping fashion just proximal to this first stent. A 2.25 x 12 mm [place] drug-eluting stent was positioned with its distal edge just within the proximal segment of the first stent where it was then deployed at 12 daysi. The stent balloon was then deflated and positioned across the overlapped segment where it was again inflated to 12 daysi. Stent balloon was removed. After angiography the BMW guidewire was pulled back into the guide catheter and then readvanced and positioned distally in the LAD. Distal LAD stenosis was predilated using a 2.0 x 12 mm trek balloon at 8 daysi. A 2.25 x 15 mm [place] drug-eluting stent was then deployed across the lesion at 12 daysi. Stent balloon was removed and airplane pilot commercial angiography performed. Final angiographic evaluation was performed in orthogonal views. Guide catheter was then removed. Radial artery sheath was removed and hemostasis was obtained using the radial band. Patient remained hemodynamically stable and asymptomatic. He was provided ticagrelor 180 mg p.o. x 1. He was then transported to the recovery area in stable condition. This ended the case. Coronary angiography findings: [id number]-feplnkk vessel trifurcating into LAD, circumflex, and ramus. Diffuse less than 10% luminal irregularities CUM-npizy-jtroind and transapical. Proximal segment with moderate calcification and diffuse mild disease up to 40 to 50% at the first septal branch. It then provides a medium to large caliber branching first diagonal which has no significant disease. The mid LAD has mild diffuse calcification and long eccentric stenosis of 40 to 50%. It provides a large caliber branching second diagonal without disease. The early distal LAD has diffuse moderate to severe disease appearing 60 to 70% stenosis. Beyond this the distal LAD has no significant disease. CDy-tgpcd-apycbpc and nondominant. Mild ostial disease of 20 to 30%. Travels in the AV groove where it gives a large multi branching OM1. The AV groove vessel then becomes medium in caliber traveling distally where it gives an atrial branch and then terminates in a small posterolateral branch. Proximal OM with mild less than 50% stenosis before the first major branch. After the first major branch the mid segment of the OM has a long eccentric stenosis with mild haziness and at least 80% stenosis. The main vessel continues distally. There is JANIS II flow in this branch. Ramus-medium to large caliber vessel which bifurcates distally as it approaches the apex. Diffuse mild less than 20% stenosis. RCA-very large caliber and dominant vessel. Proximal segment has mild luminal irregularities. Just after the first RV marginal the vessel is narrowed 50 to 70%. However there remains a relatively large residual lumen. The mid segment has mild luminal irregularities and then provides a second RV marginal branch. The distal RCA has luminal irregularities and then bifurcates into a very large and long PDA as well as a very large and multi branching posterolateral these have mild scattered plaques of less than 20%. PCI of circumflex/OM1-0% residual stenosis post PCI No evidence of dissection or perforation post PCI JANIS-3 flow post PCI PCI of LAD-0% residual stenosis in the distal LAD post PCI JANIS-3 flow post PCI No evidence of dissection or perforation post PCI Summary: 1. Severe multivessel coronary artery disease including circumflex OM with angiographically borderline disease in the LAD and moderate to severe disease in the RCA as described. 2. IFR analysis of LAD demonstrates that this is hemodynamically significant. 3. Successful PCI of the circumflex OM as well as the LAD. 4. Dual antiplatelet therapy with aspirin and Brilinta for 1 to 2 years. 5. Guideline directed medical therapy for secondary prevention of coronary disease to include; low-dose aspirin, high intensity statin therapy, beta- yudith, plus or minus JAQUAN inhibitor/ARB. 6. Suggest lifestyle modification including cardiac prudent diet, regular cardiovascular exercise, and would also benefit from formal cardiac rehab. 7. If patient has recurrent symptoms then further evaluation of the RCA stenosis would be warranted either invasively or noninvasively. Hemodynamics Rest Ao:: 114/77 mmHg Final Ao: 107/77 mmHg LV: Not performed Recommendations Recommendations: Medical Therapy and/or Counseling and PCI without planned CABG Radiation Exposure (mGy) 2791 mGy, fluoroscopy time 15.2 minutes Contrast (mls) 260 mL Anesthesia 4 mg IV Versed, 75 mcg IV fentanyl. Start 1544, end 1645 Procedural Complication(s) None Disposition Transmission Design Engineer Holding/Recovery I attest to the content of the Intraoperative Record and any orders documented therein. Any exceptions are noted below. [facility] Card Cath Procedure Codes Cardiac Catheterization Procedure 1: Cardiovascular Cath Procedures: 64087 Coronaries Procedure 2: Cardiovascular Cath Procedures: 19987 (Doppler) Pressure Wire Moderate Sedation Procedure 1: Sedation/Anesthesia: 28009 Mod Sedation by the same physician;Init15 Min Child Age 5 & Up (Initial 15 minutes, start time 1544) Procedure 2: Sedation/Anesthesia: 21665 Mod Sedation by the same physician; Ea [id number] Minutes (Additional 46 minutes, end time 1645) Stenting Procedure 1: Cardiovascular Stent Procedures: 35931 Perc transluminal revascularization of acute sub/total occl, aMI (OM) Procedure 2: Cardiovascular Stent Procedures: 28981 Ea addl branch of a major coronary artery (LAD) PG Care Time/CCT Total # of Minutes Spent Total Time Spent with Patient: Total time spent is greater than 50% in coordination of care (as documented) at patient's floor/unit and/or counseling patient:
[2023-08-25] MEDS: ASPIRIN 81 MG ECTAB PO SCH (18:25)
[2023-08-25] MEDS: ROSUVASTATIN CALCIUM 20 MG TAB PO SCH (18:25)
--- OUTSIDE RECORDS SUMMARY | 2023-08-25 20:00 | External Medical Summary | Summary of Care ---
Author Name Unknown Organization [facility] Address [address] [place] [address] Phone [phone] Care Team Providers Care Gusset Ripper Name Role Phone Unavailable Primary Care Provider Unavailabl e Reason for Visit * Reason Onset Date Comments Advice 07/03/2023 Encounter Details Date Type Department Care Team (Late st Contact Info) Description 07/03/2023 Telephone Cardiology, [facility] [address] [facility] [address] [address] Services, Scheduling [address] [place] [address] Advice Social History Tobacco Use Types Packs/Day Years Used Date Smoking Tobacco: Never Assessed Sex and Gender Information Value Date Recorded Sex Assigned at Not on file Gender Identity Not on file Sexual Orientation Not on file documented as of this encounter Miscellaneous Notes * Telephone Encounter - Sheila Kauffman PA-C - 07/04/2023 8:58 AM EST Chart reviewed. Patient is a NEW patient. Never been evaluated in clinic before. Patient was not evaluated by cardiology at [facility] He needs a new patient appt - please reschedule with Dr. Osorio as requested OR please put in 60 min new patient appt slot for AP. * Telephone Encounter - Honorio Reece OSA - 07/03/2023 3:51 PM EST LM for , that we were able to schedule appt on: Sheila Kauffman has availability on 07/07 at 8am * Telephone Encounter - Gilbert Garrett RN - 07/03/2023 3:39 PM EST Records requested from [facility] recent visit to the ER. * Telephone Encounter - Gilbert Garrett RN - 07/03/2023 3:31 PM EST Called and spoke to the patients and she stated the patient was recently seen in there ER at [facility] and was worked up and sent home and told to see cardiology. He still is having chest pains and rates a 4. The would like him to be seen here tomorrow. I explained there is no appointment appointments available. I explained we will try to get him in as soon as possible. Explained if he gets worseto go to the ER immediately. She stated she understood. She is going to have records faxed to us from the patient's PCP. * Telephone Encounter - Sara Sharma OSA - 07/03/2023 3:00 PM EST Person calling: Ruby Relationship to patient: Number to return call: [phone] Reason for call: Pt is having chest pains. Was recently seen in hospital as well. Wants to establish care in [facility], recommended to Dr Osorio. Pharmacy: Provider Name: new pt documented in this encounter Plan of Treatment Upcoming Encounters Date Type Department Care Team (Late st Contact Info) Description 07/07/2023 8:00 AM EST Office Visit Cardiology, [facility] [address] [address] Sheila Kauffman PA-C [address] [id number] Health Maintenance Due Date Last Done Comments Hepatitis B (1 of 3 - 3-dose series) 1971 Lipid Panel 1971 COVID-19 Vaccine (#1) 04/25/1972 Depression Screening 1983 HIV Screening 10/23/1986 Hepatitis C Screening 10/23/1989 DTaP,Tdap,and Td Vaccines (1 - Tdap) 10/23/1990 Cologuard 10/23/2016 Colonoscopy 10/23/2016 Colorectal Cancer Screening 10/23/2016 Fecal Occult Blood Test 10/23/2016 Sigmoidoscopy 10/23/2016 Zoster Vaccines (1 of 2) 10/23/2021 Influenza Vaccine (FLU shot) (#1) 2023 GARDASIL-HPV IMMUNIZATION SERIES Aged Out No longer eligible based on patient's age to complete this topic MENINGOCOCCAL (MENACTRA/MENVEO) Aged Out No longer eligible based on patient's age to complete this topic Pneumococcal Vaccine: Pediat rics (0 to 5 Years) and At-Risk Patients (6 to 64 Years) Aged Out No longer eligible b ased on patient's age to complete this topic documented as of this encounter Medical Devices Not on filedocumented as of this encounter
--- OUTSIDE RECORDS SUMMARY | 2023-08-25 20:00 | External Medical Summary | Summary of Care ---
Author Name Unknown Organization [facility] Address [address] [place] [address] Phone [phone] Care Team Providers Care Slackline Operator Name Role Phone Zacarias Grayson DIDI Primary Care Provider + [phone] Reason for Visit * Reason Onset Date Comments Advice 07/03/2023 Encounter Details Date Type Department Care Team (Late st Contact Info) Description 07/03/2023 Telephone Cardiology, [facility] [address] [place] [address] Services, Scheduling [address] [place] [address] Advice Allergies No known active allergiesdocumented as of this encounter (statuses as of 07/07/2023) Medications No known medicationsdocumented as of this encounter (statuses as of 07/07/2023) Social History Tobacco Use Types Packs/Day Years Used Date Smoking Tobacco: Never Assessed Sex and Gender Information Value Date Recorded Sex Assigned at Not on file Gender Identity Not on file Sexual Orientation Not on file Job Start Date Occupation Industry Not on file Not on file Not on file documented as of this encounter Miscellaneous Notes * Telephone Encounter - Paula Chowdary OSA - 07/07/2023 10:25 AM EST Spoke with Pt on Friday. Pt wants to wait until August to be seen. Appt scheduled. * Telephone Encounter - Paula Chowdary OSA - 07/04/2023 9:40 AM EST Called ,Pt and had to leave regarding appointment. * Telephone Encounter - Sheila Kauffman PA-C - 07/04/2023 8:58 AM EST Chart reviewed. Patient is a NEW patient. Never been evaluated in clinic before. Patient was not evaluated by cardiology at [place] He needs a new patient appt - please reschedule with Dr. Osorio as requested OR please put in 60 min new patient appt slot for AP. * Telephone Encounter - Honorio Reece OSA - 07/03/2023 3:51 PM EST LM for , that we were able to schedule appt on: hSeila Jamari has availability on 07/07 at 8am * Telephone Encounter - Gilbert Garrett RN - 07/03/2023 3:39 PM EST Records requested from [facility] recent visit to the ER. * Telephone Encounter - Gilbert Garrett RN - 07/03/2023 3:31 PM EST Called and spoke to the patients and she stated the patient was recently seen in there ER at [facility] and was worked up and sent home [...] Relationship to patient: Number to return call: [phone] Reason for call: Pt is having chest pains. Was recently seen in hospital as well. Wants to establish care in [facility], recommended to Dr Osorio. Pharmacy: Provider Name: new pt documented in this encounter Plan of Treatment Upcoming Encounters Date Type Department Care Team (Late st Contact Info) Description 08/26/2023 2:00 PM EDT Office Visit Cardiology, [facility] [address] [place] [address] Moshe Osorio DO [address] [place] [address] Health Maintenance Due Date Last Done Comments Hepatitis B (1 of 3 - 3-dose series) 1970 Lipid Panel 1970 Depression Screening 1983 HIV Screening 10/23/1986 Hepatitis C Screening 10/23/1989 TSH 10/23/1989 DTaP,Tdap,and Td Vaccines (1 - Tdap) 10/23/1990 Cologuard 10/23/2016 Colonoscopy 10/23/2016 Colorectal Cancer Screening 10/23/2016 Fecal Occult Blood Test 10/23/2016 Sigmoidoscopy 10/23/2016 Zoster Vaccines (1 of 2) 10/23/2021 COVID-19 Vaccine ( season) 2023 05/09/2021, 10/11/2020, 09/13/2020 Influenza Vaccine (FLU shot) Completed 09/2022, 03/07/2022, 03/07/2022, Additional history exists GARDASIL-HPV IMMUNIZATION SERIES Aged Out No longer eligible based on patient's age to complete this topic MENINGOCOCCAL (MENACTRA/MENVEO) Aged Out No longer eligible based on patient's age to complete this topic Pneumococcal Vaccine: Pediatrics (0 to 5 Years) and At-Risk Patients (6 to 64 Years) Aged Out No longer eligible based on patient's age to complete this topic documented as of this encounter Medical Devices Not on filedocumented as of this encounter Care Teams Slackline Operator Relationship Specialty Start Date End Date Zacarias Grayson CRNP [address] [place] [address] PCP - General Nurse Practitioner 07/04/23 documented as of this encounter
--- OUTSIDE RECORDS SUMMARY | 2023-08-25 20:00 | External Medical Summary | Summary of Care ---
Author Name Unknown Organization [facility] Address [address] [place] [address] Phone [phone] Care Team Providers Care Supervisor Garage Name Role Phone Unavailable Primary Care Provider Unavailabl e Reason for Visit * Reason Onset Date Comments Advice 07/03/2023 Encounter Details Date Type Department Care Team (Late st Contact Info) Description 07/03/2023 [address], [address] [address] Services, Scheduling [address] [place] [address] Advice Social History Tobacco Use Types Packs/Day Years Used Date Smoking Tobacco: Never Assessed Sex and Gender Information Value Date Recorded Sex Assigned at Not on file Gender Identity Not on file Sexual Orientation Not on file documented as of this encounter Miscellaneous Notes * Telephone Encounter - Honorio Reece OSA - 07/03/2023 3:51 PM EST LM for , that we were able to schedule appt on: Sheila Kauffman has availability on 07/07 at 8am * Telephone Encounter - Gilbert Garrett RN - 07/03/2023 3:39 PM EST Records requested from [facility] recent visit to the ER. * Telephone Encounter - Gilbert Garrett RN - 07/03/2023 3:31 PM EST Called and spoke to the patients and she stated the patient was recently seen in there ER at [facility] and was worked up and sent home [...] Relationship to patient: Number to return call: [phone] Reason for call: Pt is having chest pains. Was recently seen in hospital as well. Wants to establish care in [facility], recommended to Dr Osorio. Pharmacy: Provider Name: new pt documented in this encounter Plan of Treatment Upcoming Encounters Date Type Department Care Team (Late st Contact Info) Description 07/07/2023 8:00 AM EST Office Visit Cardiology, [facility] [address] [place] [address] Sheila Kauffman PA-C [address] [place] [address] Health Maintenance Due Date Last Done Comments [...]
--- OUTSIDE RECORDS SUMMARY | 2023-08-25 20:00 | External Medical Summary | Summary of Care ---
Author Name Unknown Organization [facility] Address [address] [facility] [address] Phone [phone] Care Team Providers Care Business Development Associate Name Role Phone Unavailable Primary Care Provider Unavailabl e Encounter Details Date Type Department Care Team (Late st Contact Info) Description 07/04/2023 Orders Only Cardiology, [facility] [address] [place] [id number] Sheila Kauffman PA-C [address] [place] [address] Social History Tobacco Use Types Packs/Day Years Used Date Smoking Tobacco: Never Assessed Sex and Gender Information Value Date Recorded Sex Assigned at Not on file Gender Identity Not on file Sexual Orientation Not on file documented as of this encounter Plan of Treatment Health Maintenance Due Date Last Done Comments [...] Not on filedocumented as of this encounter Procedures Procedure Name Priority Date/Time Associated Diagnosis Comments XR CHEST 1 VIEW Routine 07/01/2023 CHEMISTRY-OUTSIDE Routine 07/01/2023 CTA CHEST NON-CORONARY W CONTRAST Routine 07/01/2023 documented in this encounter Results * (ABNORMAL) CHEMISTRY-OUTSIDE (07/01/2023) Not all results display below - see scan for full detail OUTSIDE LAB (SEE SCANNED REPORT) Comment:SCAN INCLUDES: CBCD, PT/INR, PTT, D-DIMER, CMP, TROP, LIPASE CREATININE-OUTSID E LAB 0.88 0.6 - 1.4 MG/DL OUTSIDE LAB (SEE SCANNED REPORT) EGFR-OUTSIDE LAB 99.5 ML/MIN OUT SIDE LAB (SEE SCANNED REPORT) POTASSIUM-OUTSIDE LAB 3.7 3.5 - 5.1 MMOL/L OUTSIDE LAB (SEE SCANNED REPORT) GLUCOSE-OUTSIDE LAB 107(A) 70 - 99 MG/DL OUTSIDE LAB (SEE SCANNED REPORT) HOURS FASTING OUTSID E LAB (SEE SCANNED REPORT) TRIGLYCERIDES-OUT SIDE LAB OUTSIDE LAB (SEE SCANNED REPORT) CHOLESTEROL-OUTSI DE LAB OUTSIDE LAB (SEE SCANNED REPORT) HDL-OUTSIDE LAB OUTS [facility] LAB (SEE SCANNED REPORT) CHOL/HDL RATIO-OUTSIDE LAB OUTSIDE LA B (SEE SCANNED REPORT) LDL (CALCULATED)-OUTS [facility]Y LAB OUTSIDE LAB (SEE SCANNED REPORT) LDL (DIRECT MEASURE)-OUTSIDE LAB OUTSIDE LAB (SEE SCANNED REPORT) HEMOGLOBIN, Z4D-HTFMNDI LAB OUTSIDE LAB (SEE SCANNED REPORT) PHOSPHORUS-OUTSID E LAB OUTSIDE LAB (SEE SCANNED REPORT) PTH-OUTSIDE LAB OUTS [facility] LAB (SEE SCANNED REPORT) MICROALBUMIN RATIO-OUTSIDE LAB OUTSIDE LA B (SEE SCANNED REPORT) PROTEIN, UA-OUTSIDE LAB OUTSIDE LAB (SEE SCANNED REPORT) HEMOGLOBIN-OUTSID E LAB 15.6 14.0 - 18.0 G/DL OUTSIDE LAB (SEE SCANNED REPORT) 07/01/2023 Jayesh Bone PA-C LABORATORY OUTSIDE LAB (SEE SCANNED REPORT) * CTA CHEST NON-CORONARY W CONTRAST (07/01/2023) Anatomical Region Laterality Modality Chest, Cardio, Body Other 07/01/2023 Jayesh Bone PA-C RAD CT * XR CHEST 1 VIEW (07/01/2023) Anatomical Region Laterality Modality Chest Other 07/01/2023 Jayesh Bone PA-C RADIOLOGY (RAD G ENERAL) documented in this encounter
--- OUTSIDE RECORDS SUMMARY | 2023-08-25 20:00 | External Medical Summary | Summary of Care ---
Author Name Unknown Organization [facility] Address [address] [place] [address] Phone [phone] Care Team Providers Care Food Storeroom Clerk Name Role Phone Unavailable Primary Care Provider Unavailabl e Reason for Visit * Reason Onset Date Comments Advice 07/03/2023 Encounter Details Date Type Department Care Team (Late st Contact Info) Description 07/03/2023 Telephone [address], [address] [address] Services, Scheduling [address] [place] [address] Advice Social History Tobacco Use Types Packs/Day [...] 07/03/2023 3:39 PM EST Records requested from [facility] recent visit to the ER. * Telephone Encounter - Gilbert Garrett RN - 07/03/2023 3:31 PM EST Called and spoke to the patients and she stated the patient was recently seen in there ER at [facility] and was worked up and [...] Relationship to patient: Number to return call: [phone] Reason for call: Pt is having chest pains. Was recently seen in hospital as well. Wants to establish care in [facility], recommended to Dr Osorio. Pharmacy: Provider Name: new pt documented in this encounter Plan of Treatment Upcoming Encounters Date Type Department Care Team (Late st Contact Info) Description 07/07/2023 8:00 AM EST Office Visit Cardiology, [facility] [address] [place] [address] Sheila Kauffman PA-C [address] [place] [address] Health Maintenance Due Date Last Done Comments [...]
--- OUTSIDE RECORDS SUMMARY | 2023-08-25 20:00 | External Medical Summary | Summary of Care ---
Author Name Unknown Organization [facility] Address [address] [facility] [place] [address] Phone [phone] Care Team Providers Care Valve Repairer Name Role Phone Zacarias Grayson Javy TOLBERT Primary Care Provider + [phone] Reason for Referral * Precert (Within 10 days (routine)) - Pending Review Specialty Diagnoses / Procedures Referred By Edith t Referred To Contact Cardiac Studies Diagnoses Coronary artery calcification Other chest pain Family history of premature CAD Procedures ECHO, STRESS (EXERCISE) W/CONTRAST Moshe Osorio DO [address] [place] [address] Referral ID Status Reason Start Date Expiration Date Visits Requested Visits Authorized [id number] Pending Review Precert 08/21/2023 999 [id number] Reason for Visit * Reason Comments NEW PATIENT Encounter Details Date Type Department Care Team (Late st Contact Info) Description 08/20/2023 9:00 AM EDT Office Visit Cardiology, [facility] [address] [place] [address] Moshe Osorio DO [address] [place] [address] Coronary artery calcification*; Other chest pain; Dyslipidemia, goal LDL below 70; Family history of premature CAD Allergies No known active allergiesdocumented as of this encounter (statuses as of 08/20/2023) Medications Medication Sig Dispensed Refills Start Date End Date Status Levothyroxine Sodium 75 MCG Oral Tablet (Levoxyl) Take 1 Tablet by mouth daily first thing in the morning. 0 Active Finasteride 5 MG Oral Tablet (Proscar) Take 1 Tablet by mouth at bedtime. 0 06/28/2023 Active Cholecalciferol 50 MCG (2000 UT) Oral Capsule Take 1 Capsule by mouth daily. 0 Active Alfuzosin HCl ER 10 MG Oral Tablet Extended Release 24 Hour (Uroxatral) Take 1 Tablet by mouth at bedtime. 0 06/25/2023 Active Aspirin 325 MG Oral Tablet Take 1 Tablet by mouth daily. 0 Active Lutein 20 MG Oral Tablet Take by mouth daily. 0 Active Propranolol HCl 10 MG Oral Tablet (Inderal) Take 1 Tablet by mouth 2 times a day as needed for Anxiety. 0 Active Greenwood-3 Fish Oil 1000 MG Oral Capsule (Greenwood-3) Take 1 Capsule by mouth daily. 0 Active Gabapentin 100 MG Oral Capsule (Neurontin) Take 1 Capsule by mouth daily. 0 07/22/2023 Active Rosuvastatin Calcium 20 MG Oral Tablet (Crestor) Take 1 Tablet by mouth in the morning. 34 Tablet 6 08/20/2023 Active Rosuvastatin Calcium 10 MG Oral Tablet (Crestor) Take 1 Tablet by mouth at bedtime. 0 04/28/2023 08/20/2023 Discontinued (Medication/ Dose Changed) documented as of this encounter (statuses as of 08/20/2023) Active Problems No known active problems documented as of this encounter (statuses as of 08/20/2023) Social History Tobacco Use Types Packs/Day Years Used Date Smoking Tobacco: Never Smokeless Tobacco: Never Tobacco Cessation:Counseling Given: Not Answered Alcohol Use Standard Drinks/Week Comments Not Currently 0 (1 standard drink = 0.6 oz pur e alcohol) Sex and Gender Information Value Date Recorded Sex Assigned at Not on file Gender Identity Not on file Sexual Orientation Not on file Job Start Date Occupation Industry Not on file Not on file Not on file documented as of this encounter Last Filed Vital Signs Vital Sign Reading Time Taken Comments Blood Pressure 96/68 08/20/2023 9:03 AM EDT Pulse 80 08/20/2023 9:03 AM EDT Temperature - - Respiratory Rate 14 08/20/2023 9:03 AM EDT Oxygen Saturation - - Inhaled Oxygen Concentration - - Weight 97.6 kg (215 lb 1.6 oz) 08/20/2023 9:03 A M EDT Height - - Body Mass Index - - documented in this encounter Progress Notes * Moshe Osorio, - 08/20/2023 8:41 AM EDT Cardiology Consultation Reason for consult: Chest pain Referring provider: Zacarias TOLBERT History of Present Illness: 52 year old male evaluated in the emergency department at [facility] 07/01/2023 due to chest pain. He was discharged from the emergency department. Several days later, he developed rash of his mid back with pain radiating to the left anterior chest. Diagnosed with shingles at urgent care center and prescribed Valtrex. Today, patient continues to note substernal and left-sided chest discomfort which is relatively constant. Describes a dull ache, 3/10 in intensity. Discomfort is not affected by activity or movement.Complains of dyspnea with exertion and lack of regular exercise over the past several months. Reports previous evaluation and stress testing in [place] several years ago. At that time he was placed on statin therapy. Most recent CT performed in the ER revealing coronary calcifications. Denies palpitations, lightheadedness, dizziness. No orthopnea, PND, lower extremity edema, or claudication. ECG [facility] 07/01/2023 personally reviewed: Normal sinus rhythm with nonspecific T- wave abnormality. Repeat ECG demonstrating sinus bradycardia without acute abnormality. Cardiac Studies: [facility] chest report 07/01/2022: Severe atherosclerotic disease is seen in the coronary arteries. No acute abnormality and in particular no evidence of acute aortic injury. Past Medical History: Coronary calcifications Dyslipidemia Shingles with post herpetic neuralgia Hypothyroidism Hemorrhoids Testicular cancer Situational anxiety Past surgical history: Hemorrhoidectomy Colonoscopy Orchiectomy Vasectomy Appendectomy Family History: Father with myocardial infarction in his 40s s/p CABG and stents, living in his 80's. No family status information on file. Social History: Alcohol abuse, quit 3 years ago, currently using medical marijuana. Lifelong nonsmoker. Social History Socioeconomic History Marital status: Spouse name: Not on file Number of children: Not on file Years of education: Not on file Highest education level: Not on file Occupational History Not on file Tobacco Use Smoking status: Not on file Smokeless tobacco: Not on file Substance and Sexual Activity Alcohol use: Not on file Drug use: Not on file Sexual activity: Not on file Other Topics Concern Not on file Social History Narrative Not on file Social Determinants of Health Financial Resource Strain: Not on file Food Insecurity: Not on file Transportation Needs: Not on file Physical Activity: Not on file Stress: Not on file Social Connections: Not on file Intimate Partner Violence: Not on file Housing Stability: Not on file Social History Social History Narrative Not on file ROS: All others negative other than those noted in the HPI. Review of patient's allergies indicates: No Known Allergies Current Outpatient Medications Medication Sig Dispense Refill Levothyroxine Sodium 75 MCG Oral Tablet (Levoxyl) Take 1 Tablet by mouth in the morning. Finasteride 5 MG Oral Tablet (Proscar) Take 1 Tablet by mouth in the morning. Cholecalciferol 50 MCG (2000 UT) Oral Capsule Take 1 Capsule by mouth. Alfuzosin HCl ER 10 MG Oral Tablet Extended Release 24 Hour (Uroxatral) TAKE 1 TABLET BY MOUTH EVERY DAY. ADMINISTER AFTER THE SAME MEAL EACH DAY. No current facility-administered medications for this visit. OBJECTIVE/PHYSICAL EXAMINATION: BP 96/68 (BP Site: Left Arm, BP Position: Sitting, BP Cuff Size: Large) | Pulse 80 | Resp 14 | Wt 97.6 kg (215 lb 1.6 oz) General: NAD, AAO x3, well nourished. HEENT: Normocephalic. Atraumatic. Conjunctiva pink, no scleral icterus. No carotid bruits, the carotid upstrokes are brisk. No JVD. No HJR Heart: Regular normal S-1 and S-2 no S-3 or S-4 gallop. No murmurs or rubs appreciated. PMI is not displaced. No RV heave.Lungs: Clear bilateral without rales , rhonchi, or wheeze. Abdomen: Normal bowel sounds. Soft. Nontender. No masses or organomegaly. No abdominal bruits. Extremities: No clubbing, cyanosis, or edema.Pulses: radial=2/4, Dorsalis pedis =2/4, posterior tibial=2/4. Neuro: No focal deficits. IMPRESSION: 1. Chest pain with atypical features -recovering from shingles infection with left sided dermatome distribution 2. Coronary calcifications 3. Family history of premature CAD 4. Dyslipidemia 5. Prediabetes, fasting glucose 107 mg/dL RECOMMENDATIONS/PLAN: Lipid panel with direct ldl if tg is high Comprehensive metabolic panel Echo, stress (exercise) w/contrast Recommend high-intensity statin therapy due to extensive coronary calcifications per CT and significant family history of premature coronary disease. Titrate rosuvastatin to 20 mg daily. Repeat fasting lipid panel and CMP in 6 to 12 weeks. Reduce aspirin to 81 mg daily. Exercise stress echocardiography will be performed for further evaluation of chest discomfort. If stress testing abnormal, we discussed next step would be coronary angiography. Encouraged to make dietary improvements and maintain a heart healthy diet low in saturated fat, cholesterol, and simple sugars. All questions answered satisfaction both the patient and his . Further recommendations pending clinical response to titration of statin therapy and results of exercise stress ECHO. Follow-up: Return in about 3 months (around 11/20/2023). | Check-out note: Stress echo within two weeks I spent a total of Greater than 55 mins (exact time 55 mins) on the date of service in preparation,delivery, and documentation of the care provided to Tremaine Lindsay excluding any time spent in the performance of separately billed services. Moshe Osorio DO, [facility] Associate Cardiology - Danilo Clark documented in this encounter Nursing Notes * Kinza White CMA - 08/20/2023 8:58 AM EDT Examination Room: 11 Name: Tremaine Lindsay Date of : (1970). Reason for Visit: New patient Interim Hospitalization(s): [facility] ED 07/01 CP Problems/Concerns: Coronary calcifications on CT scan. Father had [place] in 40s. Chest Pain/SOB: Continues to have centralized L-sided CP. SOB with inclines. [facility] Discussed: Not applicable My [employer] is a way you can talk to your provider online through e-mail. Would you like to sign up? I can activate it for you? DECLINES Patient was instructed to not get up on the exam table until directed and assisted by their provider; patient is to remain seated in the chair/ wheelchair/ exam table for fall prevention and safety reasons. Patient is aware to have assistance to step down off exam table with personnel. Patient voiced full comprehension of instructions. documented in this encounter Plan of Treatment Upcoming Encounters Date Type Department Care Team (Late st Contact Info) Description 08/25/2023 9:15 AM EDT Imaging Cardiac Studies, [facility] [address] [facility] [place] [address] Scheduled Orders Name Type Priority Associated Diagnoses Orde r Schedule ECHO, STRESS (EXERCISE) W/CONTRAST Echocardiology Routine Coronary artery calcification Other chest pain Family history of premature CAD Expected: 08/21/2023, Expires: 09/17/2024 LIPID PANEL WITH DIRECT LDL IF TG IS HIGH Lab Routine Coronary artery calcification Dyslipidemia, goal LDL below 70 Expected: 11/20/2023 (Approximate), Expires: 08/19/2024 COMPREHENSIVE METABOLIC PANEL Lab Routine Coronary artery calcification Dyslipidemia, goal LDL below 70 Expected: 11/20/2023 (Approximate), Expires: 08/19/2024 Health Maintenance Due Date Last Done Comments Lipid Panel 1970 Depression Screening 1983 HIV Screening 10/23/1986 Hepatitis C Screening 10/23/1989 TSH 10/23/1989 DTaP,Tdap,and Td Vaccines (1 - Tdap) 10/23/1990 Hepatitis B (1 of 3 - 19+ 3-dose series) 10/23/1990 Cologuard 10/23/2016 Fecal Occult Blood Test 10/23/2016 Sigmoidoscopy 10/23/2016 Zoster Vaccines (1 of 2) 10/23/2021 COVID-19 Vaccine ( season) 2023 05/09/2021, 10/11/2020, 09/13/2020 Colonoscopy 02/20/2030 02/21/2020, 02/21/2020 Colorectal Cancer Screening 02/20/2030 Influenza Vaccine (FLU shot) Completed 09/2022, 03/07/2022, [...] Not on filedocumented as of this encounter Visit Diagnoses Diagnosis Coronary artery calcification- Primary Coronary atherosclerosis of unspecified type of vessel, [place] or graft Other chest pain Dyslipidemia, goal LDL below 70 Other and unspecified hyperlipidemia Family history of premature CAD Family history of ischemic heart disease documented in this encounter Care Teams Valve Repairer Relationship Specialty Start Date End Date Zacarias Grayson CRNP [address] [place] [address] PCP - General Nurse Practitioner 07/04/23 documented as of this encounter"
--- OUTSIDE RECORDS SUMMARY | 2023-08-25 20:00 | External Medical Summary | Summary of Care ---
Author Name Unknown Organization [facility] Address [address] [place] [address] Phone [phone] Care Team Providers Care Natural Remedy Consultant Name Role Phone Zacarias Grayson Javy TOLBERT Primary Care Provider Reason for Visit * Reason Onset Date Comments Rash Rash 07/04/2023 Encounter Details Date Type Department Care Team (Latest Contact Info) Description 07/04/2023 11:40 AM EST Convenient Care Visit [facility] [address] [place] [address] Nando Mckeon PA-C [address] [facility] [place] [address] Herpes zoster without complication* Allergies No known active allergiesdocumented as of this encounter (statuses as of 07/04/2023) Medications Medication Sig Dispensed Refills Start Date End Date Status Levothyroxine Sodium 75 MCG Oral Tablet (Levoxyl) Take 1 Tablet by mouth in the morning. 0 Active Finasteride 5 MG Oral Tablet (Proscar) Take 1 Tablet by mouth in the morning. 0 06/28/2023 Active Cholecalciferol 50 MCG (1999 UT) Oral Capsule Take 1 Capsule by mouth. 0 Active Alfuzosin HCl ER 10 MG Oral Tablet Extended Release 24 Hour (Uroxatral) TAKE 1 TABLET BY MOUTH EVERY DAY. ADMINISTER AFTER THE SAME MEAL EACH DAY. 0 06/25/2023 Active valACYclovir HCl 1 GM Oral Tablet (Valtrex)Indication s:Herpes zoster without complication Take 1 Tablet by mouth in the morning and 1 Tablet at noon and 1 Tablet before bedtime. Do all this for 7 days. 21 Tablet 0 07/04/2023 07/11/2023 Active documented as of this encounter (statuses as of 07/04/2023) Social History Tobacco Use Types Packs/Day Years [...] Sign Reading Time Taken Comments Blood Pressure 120/80 07/04/2023 11:47 AM EST Pulse 86 07/04/2023 11:47 AM EST Temperature 37.2 C (98.9 F) 07/04/2023 1 1:47 AM EST Respiratory Rate 16 07/04/2023 11:4 7 AM EST Oxygen Saturation 99% 07/04/2023 11: 47 AM EST Inhaled Oxygen Concentration - - Weight 95.2 kg (209 lb 12.8 oz) 024 11:47 AM EST Height - - Body Mass Index - - documented in this encounter Progress Notes * Nando Mckeon PA-C - 07/04/2023 11:59 AM EST Nursing Notes: Magalys Anderson LPN 07/04/23 1152 Signed 52 yo male presents with red rash to upper/middle back/near right breast since last night SUBJECTIVE: Tremaine Lindsay is a 52 year old male who is here to be evaluated for rash. Symptoms include Type of rash is blisters, itchy, painful, red, patches Rash location back, L flank, L chest Exposure to No known exposures and No recent travel, immunizations or new medication Rash condition is spreading Denies Any other recent exposures Patient denies other symptoms The symptoms have been present for 1 day(s) and are rapidly worsening. Fevers have been absent. He started to get pain a few days prior. Went to ER and had a negative work-up. Was dc to home. Rash started last night. Reports malaise, fatigue. Denies sinus, cough, st, n/v/d/c Current Outpatient Medications Medication Sig Dispense Refill [...] ADMINISTER AFTER THE SAME MEAL EACH DAY. valACYclovir HCl 1 GM Oral Tablet (Valtrex) Take 1 Tablet by mouth in the morning and 1 Tablet at noon and 1 Tablet before bedtime. Do all this for 7 days. 21 Tablet 0 No current facility-administered medications for this visit. Review of patient's allergies indicates: No Known Allergies OBJECTIVE: BP 120/80 | Pulse 86 | Temp 37.2 C (98.9 F) (Tympanic) | Resp 16 | Wt 95.2 kg (209 lb 12.8 oz) | SpO2 99% General: awake, alert, no apparent distress Eyes: no proptosis, no periorbital inflammation or soft tissue edema, no orbital cellulitis Lungs: clear to auscultation, no rhonchi, no wheezes, and no crackles Heart: regular rate, regular rhythm, no murmurs , no rubs, and no gallops Skin: rash present -positive erythema, induration, starting to have vesicles, pruritic, painful, sensitive skin on and surrounding rash, in dermatomal distribution on midback and wrapping around to midline of body Herpes zoster without complication (Primary) - valACYclovir HCl 1 GM Oral Tablet (Valtrex); Take 1 Tablet by mouth in the morning and 1 Tablet at noon and 1 Tablet before bedtime. Do all this for 7 days. With PCP follow-up in 3 days Follow Up: Return if symptoms worsen or fail to improve. Er if acutely worsens Nando Mckeon PA-C documented in this encounter Nursing Notes * Magalys Anderson LPN - 07/04/2023 11:49 AM EST 52 yo male presents with red rash to upper/middle back/near right breast since last night documented in this encounter Miscellaneous Notes * Pt Handout (on AVS) - Nando Mckeon PA-C - 07/04/2023 12:14 PM EST Images from the original note were not included. [id number] Shingles (Herpes Zoster) Talk to your healthcare provider about the shingles vaccine. Shingles is also called herpes zoster. It's a painful skin rash caused by the herpes zoster virus. This is the same virus that causes chickenpox. After a person has chickenpox, the virus stays inactive in the nerve cells. Years later, the virus can become active again and travel along the nerve to the skin. Most people have shingles only once. But it's possible to have it more than once. Who is at risk for shingles? Anyone who has ever had chickenpox can get shingles. But your risk is greater if you: Are age 50 or older Have an illness that weakens your immune system, such as HIV/AIDS Have cancer, especially Hodgkin disease or lymphoma Take medicines that weaken your immune system What are the symptoms of shingles? The first sign of shingles is often pain, burning, tingling, or itching on one part of your faceor body. You may also feel as if you have the flu, with fever and chills. A red rash with small blisters appears in a few days. The rash may look as follows: o The blisters can occur anywhere, but they?re most common on the back, chest, or belly (abdomen). o They usually appear on only one side of the body, spreading along the nerve pathway where the virus is reactivating. o The rash can also form around an eye, along one side of the face or neck, or in the mouth. o In a few people, often those with a weak immune system, shingles appear on more than one part of the body at once. After a few days, the blisters become dry and form a crust. The crust falls off in days to weeks. The blisters generally don't leave scars. But they can in severe cases. Or if someone has a weak immune system. How is shingles treated? For most people, shingles heals on its own in a few days or weeks. But treatment is advised to helpease pain, speed healing, and reduce the risk for complications. Antiviral medicines are most oftenonly prescribed if you are seen by a healthcare provider within the first 72 hours of having the rash. But antiviral medicines may be prescribed even after 72 hours if your immune system is weak. Or if the infection is extensive, severe, or isn't going away. To reduce symptoms: Apply ice packs or cool compresses, or soak in a cool bath. To make an ice pack, use a bag of frozen vegetables or put ice cubes in a plastic bag that seals at the top. Wrap the bag in a clean, thin towel or cloth. Never put ice or an ice pack directly on the skin. Use calamine lotion to calm itchy skin. Ask your provider about fxtn-hcy-whjfsdd pain relievers. If your pain is severe, your provider may prescribe stronger pain medicines. What are possible complications of shingles? Shingles often goes away with no lasting effects. But some people have complications during or after the infection comes out: Postherpetic neuralgia. This is the most common complication. It's more likely as people age, especially after age 60. It's nerve pain at the place where the rash used to be. It can range from mild to severe. It can last for only a few days. Or it can last for months or even years after you havehad shingles. Antiviral medicines given during the first 72 hours of the rash can reduce the chanceof postherpetic neuralgia. Other medicines can help ease the pain and improve quality of life. Bacterial infection. Shingles blisters may get infected with bacteria. Depending on the severityof the infection, topical, oral or IV (intravenous) antibiotic medicine is used to treat the infection. Eye problems. If you have shingles on the face, see your healthcare provider right away. Shingles can cause serious problems with vision, and even blindness. In very rare cases, shingles can also lead to pneumonia, hearing problems, brain inflammation, or even . When to get medical care Call your healthcare provider if you have any of these: New symptoms or symptoms that don?t go away with treatment A rash or blisters near your eye More drainage, fever, or rash after treatment Severe pain that doesn?t go away How can shingles be prevented? You can only get shingles if you have had chickenpox in the past. Someone who never had chickenpox can get the virus from you. But instead of have shingles, the person may get chickenpox. Until your blisters form scabs, don't have any contact with others, especially the following: women who have never had chickenpox or the vaccine Babies who were born early (premature) or who had low weight at People with weak immune systems. This includes people getting chemotherapy for cancer, people who have had organ transplants, and people with HIV infections. The risk is higher if you've never hadchickenpox. The shingles vaccine The recombinant zoster vaccine (RZV) shingles vaccine can help prevent shingles or make it less painful. You should get the RZV shingles vaccine if you are healthy and age 50 or older, even if you've had shingles in the past. Two shots of the RZV vaccine are needed. You should get the second RZV shot 2 to 6 months after the first. The vaccine makes it less likely that you will develop shingles. If youdo develop shingles, your symptoms will likely be milder than if you hadn?t been vaccinated. RZV isalso advised even if you had the older shingles vaccine (zoster live vaccine, ZVL) in the past. That's because the RZV vaccine works better and protects you from shingles longer. Talk with your healthcare provider about the best time to get vaccinated. Last Reviewed Date: 08/07/202119991580-1376 The [employer]. All rights reserved. This information is not intended as a substitute for professional medical care. Always follow your healthcare professional's instructions. documented in this encounter Plan of Treatment Health Maintenance [...] Vaccines (1 of 2) 10/23/2021 COVID-19 Vaccine (2022-2 4 season) 2023 05/09/2021, 10/11/2020, 09/13/2020 Influenza Vaccine (FLU shot) Completed 09/2022, 03/07/2022, 03/06/2021 GARDASIL-HPV IMMUNIZATION SERIES Aged Out No longer eligible b ased on patient's age to complete this topic MENINGOCOCCAL (MENACTRA/MENVEO) Aged Out No longer eligible b ased on patient's age to complete this topic Pneumococcal Vaccine: Pediatrics (0 to 5 Years) and At-Risk Patients (6 to 64 Years) Aged Out No longer eligible b ased on patient's age to complete this topic documented as of this encounter Medical Devices Not on filedocumented as of this encounter Visit Diagnoses Diagnosis Herpes zoster without complication- Primary Herpes zoster without mention of complication documented in this encounter Care Teams Natural Remedy Consultant Relationship Specialty Start Date End Date Zacarias Grayson CRNP [address] [address] [place] [address] PCP - General Nurse Practitioner 07/04/23 documented as of this encounter"
--- OUTSIDE RECORDS SUMMARY | 2023-08-25 20:00 | External Medical Summary | Summary of Care ---
Author Name Unknown Organization [facility] Address [address] [place] [address] Phone [phone] Care Team Providers Care Office Agent Name Role Phone Unavailable Primary Care Provider Unavailabl e Encounter Details Date Type Department Care Team (Late st Contact Info) Description 07/01/2023 Result Scan Unspecified Department <No scans attached> Social History Tobacco Use Types Packs/Day Years [...] Procedure Name Priority Date/Time Associated Diagnosis Comments EKG SCANNED RESULT 07/01/2023 documented in this encounter Results * EKG SCANNED RESULT (07/01/2023) 07/01/2023 No Physician Data Unknown EKG documented in this encounter
--- OUTSIDE RECORDS SUMMARY | 2023-08-25 20:00 | External Medical Summary | Summary of Care ---
Author Name Unknown Organization [facility] Address [address] [place] [address] Phone [phone] Care Team Providers Care International Representative Name Role Phone Unavailable Primary Care Provider Unavailabl e Reason for Visit * Reason Onset Date Comments Advice 07/03/2023 Encounter Details Date Type Department Care Team (Late st Contact Info) Description 07/03/2023 Telephone Cardiology, [facility] [address] [facility] [place] [address] Services, Scheduling [address] [place] [address] Advice Social History Tobacco Use Types Packs/Day [...] 07/03/2023 3:39 PM EST Records requested from [facility] recent visit to the ER. * Telephone Encounter - Gilbert Garrett RN - 07/03/2023 3:31 PM EST Called and spoke to the patients and she stated the patient was recently seen in there ER at [facility] and was worked up and sent home [...] Relationship to patient: Number to return call: [phone] Reason for call: Pt is having chest pains. Was recently seen in hospital as well. Wants to establish care in [facility], recommended to Dr Osorio. Pharmacy: Provider Name: [...]
--- OUTSIDE RECORDS SUMMARY | 2023-08-25 20:00 | External Medical Summary | Summary of Care ---
Author Name Unknown Organization [facility] Address [address] [place] [address] Phone [phone] Care Team Providers Care Snow Ranger Name Role Phone Unavailable Primary Care Provider Unavailabl e Reason for Visit * Reason Onset Date Comments Advice 07/03/2023 Encounter Details Date Type Department Care Team (Late st Contact Info) Description 07/03/2023 Telephone Cardiology, [facility] [address] [facility] [place] [address] Services, Scheduling [address] [place] [address] Advice Social History Tobacco Use Types Packs/Day [...] 07/03/2023 3:39 PM EST Records requested from [facility] recent visit to the ER. * Telephone Encounter - Gilbert Garrett RN - 07/03/2023 3:31 PM EST Called and spoke to the patients and she stated the patient was recently seen in there ER at [facility] and was worked up and sent [...] Relationship to patient: Number to return call: [phone] Reason for call: Pt is having chest pains. Was recently seen in hospital as well. Wants to establish care in [facility], recommended to Dr Osorio. Pharmacy: Provider Name: new pt documented in this encounter Plan of Treatment Upcoming Encounters Date Type Department Care Team (Late st Contact Info) Description 07/07/2023 8:00 AM EST Office Visit Cardiology, [facility] [address] [place] [address] Sheila Kauffman PA-C [address] [address] Health Maintenance Due Date Last Done Comments [...]
[2023-08-25] MEDS: NITROGLYCERIN 2% OINTMENT 30GM TUBE EXT SCH (20:32)
[2023-08-25] MEDS: ACETAMINOPHEN 325 MG TAB PO PRN (20:32)
[2023-08-25] MEDS: FINASTERIDE 5 MG TAB PO SCH (20:40)
[2023-08-25] MEDS: METOPROLOL TARTRATE 25 MG TAB PO SCH (20:40)
[2023-08-25] MEDS: TICAGRELOR 90 MG TAB PO SCH (20:41)
[2023-08-25] MEDS ORDERED: TAMSULOSIN HCL 0.4 MG CAP PO SCH (21:00)
[2023-08-25 21:14] LABS: ANTI-Xa, UFH(UnfractionatedHep 0.44 IU/ml (0.3-0.7)
--- OUTSIDE RECORDS SUMMARY | 2023-08-26 01:26 | External Medical Summary | Summary of Care ---
Author Name Unknown Organization [facility] Address [address] [facility] [place] [address] Phone [phone] Care Team Providers Care Digital Designer Name Role Phone RenZacarias chong Javy TOLBERT Primary Care Provider + [phone] Reason for Visit * Reason Comments Follow Up Encounter Details Date Type Department Care Team (Late st Contact Info) Description 08/25/2023 11:00 AM EDT Office Visit Cardiology, [facility] [address] [place] [address] Josh Salcedo, [address] [place] [address] Other chest pain*; Abnormal stress ECG; Unstable angina (HCC) Allergies No known active allergiesdocumented as of this encounter (statuses as of 08/25/2023) Medications Medication Sig Dispensed Refills Start Date [...] by mouth at bedtime. 0 06/25/2023 Active Lutein 20 MG Oral Tablet Take by mouth daily. 0 Active Propranolol HCl 10 MG Oral Tablet (Inderal) Take 1 Tablet by mouth 2 times a day as needed for Anxiety. 0 Active Prinsburg-3 Fish Oil 1000 MG Oral Capsule (Prinsburg-3) Take 1 Capsule by mouth daily. 0 Active Rosuvastatin Calcium 20 MG Oral Tablet (Crestor) Take 1 Tablet by mouth in the morning. 34 Tablet 6 08/20/2023 Active Aspirin 81 MG Oral Tablet Delayed Release (Aspirin 81) Take 1 Tablet by mouth in the morning. 0 Active NATURAL SUPPLEMENT Medical marijuana 0 Active Aspirin 325 MG Oral Tablet Take 1 Tablet by mouth daily. 0 08/25/2023 Discontinued Gabapentin 100 MG Oral Capsule (Neurontin) Take 1 Capsule by mouth daily. 0 07/22/2023 08/25/2023 Discontinued Hospital, Clinic, or Other Facility Administered Medication Ordered Dose Route Frequency Start Date End Date Status perflutren lipid microsphere inj SUSP 1.956 mgIndications:Coronary artery calcification,Other chest pain,Family history of premature CAD 1.956 mg IV ONCE PRN 08/25/2023 08/25/2023 Ended documented as of this encounter (statuses as of 08/25/2023) Active Problems No known active problems documented as of this encounter (statuses as of 08/25/2023) Social History Tobacco Use Types Packs/Day Years Used Date Smoking Tobacco: Never Smokeless Tobacco: Never Alcohol Use Standard Drinks/Week Comments Not Currently [...] Sign Reading Time Taken Comments Blood Pressure 110/74 08/25/2023 11:16 AM EDT Pulse 68 08/25/2023 11:16 AM EDT Temperature - - Respiratory Rate 14 08/25/2023 11:16 AM EDT Oxygen Saturation - - Inhaled Oxygen Concentration - - Weight 97.5 kg (215 lb) 08/25/2023 11:16 AM EDT Height - - Body Mass Index - - documented in this encounter Progress Notes * Josh Salcedo, - 08/25/2023 11:07 AM EDT 08/25/2023 Cardiology Follow Up CHIEF COMPLAINT: Exertional chest burning/shortness of breath, abnormal stress EKG SUBJECTIVE: Tremaine Lindsay is a 52 year old year old male who would recently been seen in cardiology consultation by Dr. Osorio of our practice last week on 08/20/2023 to the above symptoms. His symptoms date back to an emergency room visit on 07/01/2023. Mild nonspecific repolarization abnormalitiesobserved on the initial EKG performed that day which resolved on the second tracing. High sensitivity troponin was negative x2. Patient has subsequently discharged with plans for outpatient follow-upand shortly thereafter had developed shingles over his left anterior chest and back. He was since recovered from shingles, but continues to have a symptom that he feels his separate from what he experienced when he had the rash. He feels an exertional chest burning symptom as well asshortness of breath with exertion. This occurs with light activity including light yard work and heexperienced it several times over the weekend. He presented for planned stress echocardiogram today with reproduction of his symptoms and an abnormal EKG response suggestive ischemia. The resting and stress wall motion however were within normal limits. Past Medical History: Coronary calcifications Dyslipidemia Shingles with post herpetic neuralgia Hypothyroidism Hemorrhoids Testicular cancer Situational anxiety Past surgical history: Hemorrhoidectomy Colonoscopy Orchiectomy Vasectomy Appendectomy Family History: Father with myocardial infarction in his 40s s/p CABG and stents, living in his 80's. Social History: History of alcohol dependence but quit 3 years ago, uses medical marijuana. Lifelong nonsmoker , spouse is named Ruby. 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 Extensive ROS: All systems reviewed & are unremarkable except as noted in HPI & below Cardiovascular (chest pain/palpitations/fluttering/diaphoresis/dyspnea on exertion/paroxysmally nocturnal dyspnea):Negative Review of patient's allergies indicates: No Known Allergies Current Outpatient Medications Medication Sig Dispense Refill Levothyroxine Sodium 75 MCG Oral Tablet (Levoxyl) Take 1 Tablet by mouth daily first thing in the morning. Finasteride 5 MG Oral Tablet (Proscar) Take 1 Tablet by mouth at bedtime. Cholecalciferol 50 MCG (2000 UT) Oral Capsule Take 1 Capsule by mouth daily. Alfuzosin HCl ER 10 MG Oral Tablet Extended Release 24 Hour (Uroxatral) Take 1 Tablet by mouth at bedtime. Aspirin 325 MG Oral Tablet Take 1 Tablet by mouth daily. Lutein 20 MG Oral Tablet Take by mouth daily. Propranolol HCl 10 MG Oral Tablet (Inderal) Take 1 Tablet by mouth 2 times a day as needed for Anxiety. Prinsburg-3 Fish Oil 1000 MG Oral Capsule (Prinsburg-3) Take 1 Capsule by mouth daily. Gabapentin 100 MG Oral Capsule (Neurontin) Take 1 Capsule by mouth daily. Rosuvastatin Calcium 20 MG Oral Tablet (Crestor) Take 1 Tablet by mouth in the morning. 34 Tablet 6 Current Facility-Administered Medications Medication Dose Route Frequency Provider Last Rate Last Admin perflutren lipid microsphere inj SUSP 1.956 mg 1.956 mg Intravenous Once PRN Moshe Osorio, DO1.956 mg at 08/25/23 0954 OBJECTIVE/PHYSICAL EXAMINATION: BP 110/74 | Pulse 68 | Resp 14 | Wt 97.5 kg (215 lb) General: no acute distress and stated age Eyes: conjunctiva are pink and non-injected, sclera clear Neck: normal jugular venous pulse, no hepatojugular reflux Chest: normal shape and normal respiratory effort Lungs: clear to auscultation , no rales rhonchi or wheezing Cardiac Exam: - regular heart sounds, no murmurs, rubs, or gallops Abdomen: abdomen soft, non-tender, no abnormal masses and no hepatosplenomegaly Musculoskeletal: no gait disturbance, no weakness Extremities: no edema and no cyanosis Neuro: grossly normal exam Psych: appropriate affect and insight. Skin: No rashes or lesions over the chest and back Data: Resting EKG performed post stress test, 08/25/2023 at 11:45 p.m. and interpreted independently: Sinus bradycardia 50 beats per minute, T-wave abnormality observed in the precordial leads V2 to V6 suggestive anterior ischemia. Compared to the previous tracing performed at [facility] on 07/01/2023 at 9:35 a.m. anterior ischemia now noted. The present tracing is somewhat similar to the initial EKG performed on 07/01/2023 at 7:29 a.m. Summary of stress echocardiogram performed 08/25/2023 and interpreted independently: Stress test findings suggest coronary artery disease with ischemia even though the stress echo wallmotion failed to identify inducible ischemia. The patient exercised according to the Jean protocol for 7 minutes and 8 seconds achieving a work level maximum of 8.7 METs. The resting heart rate of 56 beats per minute karri to a maximum heart rate of 144 beats per minute. This value represents 85% of the maximal age predicted heart rate. The resting blood pressure of 115/69 karri to a maximum blood pressure of 184/88. The exercise test was terminated due to fatigue. The stress EKG response is abnormal and suggestive ischemia. Early into exercise, diffuse T-wave inversions were observed and patient has subsequently developed 2 millimeter horizontal and downsloping ST segment depression in the inferior and lateral leads. The patient described 4-5/10 intensity chest burning and shortness of breath at peak heart rate with character of symptoms consistent with angina. Symptoms and EKG changes resolved in the post stress recovery interval. The left ventricular wall motion is normal at rest with appropriate increase in left ventricular systolic function and no stress-induced wall motion abnormalities identified. No significant valvular heart disease was observed on the resting study. CTA chest report 07/01/2022: Severe atherosclerotic disease is seen in the coronary arteries. No acute abnormality and in particular no evidence of acute aortic injury. ASSESSMENT / PLAN: 52 year old year old male Who presents with symptoms of unstable angina. He has had recent recurrent chest burning and shortness of breath, symptoms at most during the weekend of 5/10 intensity, reproduced during treadmill exercise. In the post stress recovery interval, he notes 2/10 intensity "chest burning". Marked EKG abnormality noted at peak stress which has improved, but it was not normal at this point. Patient is on aspirin 81 milligrams daily as well as rosuvastatin. At this point would recommend referral to the emergency department for expedited hospital level evaluation to likely include cardiaccatheterization within the next 24 hours. Patient agreeable to this approach. Josh Salcedo DO Cardiology, [address] [address] This chart was completed in part utilizing [employer] Speech Voice Recognition Software. Grammatical errors, random word insertions, prounoun errors, and incomplete sentences are an occasional consequence of this system due to software limitations, ambient noise, and hardware issues. Any formal questions or concerns about the content, text, or information contained within the body of this dictation should be directly addressed to the provider for clarification. documented in this encounter Nursing Notes * Freida Toscano LPN - 08/25/2023 11:15 AM EDT Examination Room: 10 Name: Tremaine Lindsay Date of : 1970 Reason for Visit: Acute follow up Problems/Concerns: Cp sob Interim Hosp(s): June 2023 for CP, shingles Chest Pain/SOB: denies MyChart Discussed: ALREADY ACTIVE Patient was instructed to not get up on the exam table until directed and assisted by their provider; patient is to remain seated in the chair/ wheelchair/ exam table for fall prevention and safety reasons. Patient is aware staff will assist stepping down off exam table with personnel. documented in this encounter Plan of Treatment Scheduled Orders Name Type Priority Associated Diagnoses Orde r Schedule EKG EKG Routine Other chest pain Abnormal stress ECG Expected: 08/25/2023 (Approximate), Expires: 08/24/2024 Health Maintenance Due Date Last Done Comments [...] as of this encounter Visit Diagnoses Diagnosis Other chest pain- Primary Abnormal stress ECG Other nonspecific abnormal cardiovascular system function study Unstable angina (HCC) Intermediate coronary syndrome documented in this encounter Care Teams Digital Designer Relationship Specialty Start Date End Date Zacarias Grayson CRNP [address] [place] [address] PCP - General Nurse Practitioner 07/04/23 documented as of this encounter
[2023-08-26 02:17] LABS: Basophils # (auto) 0.05 K/uL (0.00-0.20); Basophils % (auto) 0.7 %; Eosinophils # (auto) 0.23 K/uL (0.00-0.50); Eosinophils % (auto) 3.1 %; Hematocrit (blood only) 41.2 % (42.0-52.0); Hemoglobin 14.6 g/dl (14.0-18.0); Immature Granulocytes # (auto) 0.03 K/uL (0.01-0.20); Immature Granulocytes % (auto) 0.4 %; Lymphocytes # (auto) 1.56 K/uL (1.20-3.40); Lymphocytes % (auto) 21.2 %; Mean Corpuscular Hgb Conc 35.4 g/dL (32.0-36.0); Mean Corpuscular Volume 84.8 fL (80.0-100.0); Monocytes # (auto) 0.44 K/uL (0.11-0.59); Neutrophils # (auto) 5.04 K/uL (1.40-6.50); Neutrophils % (auto) 68.6 %; Platelet Count 154 K/uL (130-400); RDW Coefficient of Variation 12.9 % (11.5-14.5); RDW Standard Deviation 39.4 fL (36.4-46.3); Red Blood Count 4.86 M/uL (4.70-6.10); White Blood Count 7.35 K/ul (4.8-10.8)
[2023-08-26 02:33] LABS: Albumin Globulin Ratio 1.9 (0.9-2); Bilirubin,Total 0.7 mg/dl (0.2-1.0); Calcium 8.6 mg/dl (8.6-10.3); Creatinine Clr Calc Pharmacy 133.6 ml/min; Est GFR (African American) 120.5 ml/min; Globulin 2.1 gm/dl (2.5-4.0); Magnesium 1.9 mg/dl (1.7-2.4); Potassium 3.6 mmol/L (3.5-5.1); Total Protein 6.1 gm/dl (6.0-8.3)
[2023-08-26 02:45] LABS: Prothrombin Time 10.9 Seconds (9.0-12.0)
[2023-08-26] MEDS: LEVOTHYROXINE SODIUM 75 MCG TABLET PO SCH (08:28)
[2023-08-26] MEDS ORDERED: ROSUVASTATIN CALCIUM 20 MG TAB PO SCH (09:00)
--- NOTE | 2023-08-26 12:57 | Discharge Summary ---
Date of Service August 26, 2023 Admission HPI Per Admitting Provider Brain is a 52 year old male with a PMH significant for hyperlipidemia, previous shingles infection of the left chest/back, BPH, and hypothyroidism who was sent to the [facility] ED from [facility] on 08/25/23 after he failed an outpatient stress test. Per the ED staff who spoke with the [facility] Cardiology team, the patient has been having ongoing left sided chest pain and LAYNE since June. He was seen in the [facility] last week by Dr. Figueroa who scheduled the stress test for today. During the stress test the patient experienced recurrend left sided chest pain with LAYNE and dynamica ch anges on his ECG. The [facility] Cardiology team report that his echocardiogram was WNL during the stress test. On arrival to the ED he remained stable. He was still experiencing chest pain on arrival and was given one dose of SL nitroglycerine, 1 inch of nitroglycerine paste, and was started on a low-dose, weight based heparin drip w/bolus. At the time of the exam the patient was sitting in bed in no acute distress with his bedside. He confirms the above history. He was also diagnosed with shingles on the left chest/back in June and completed treatment. He confirms that the chest pain he has been continuing to experience is located in the left anterior chest and does not follow the distribution of his previous shingles infection. The pain is described as a sharp/pressure like sensation in the left anterior chest that is exacerbated with exertion and takes up to 30 minutes to dissipate after he rests. His pain is currently a 2/10 after receiving the initial treatment in the ED. He denies a previous hx of Cardiac disease, but his father had a CABG at the age of 41. He denies tobacco use. Please refer to Dr. Owens's attestation for any changes to the treatment plan Principal Diagnosis Unstable angina Discharge Exam General-alert and oriented x3, no fever, no chills HEENT-head atraumatic and normocephalic, pupils equal and reactive to light, extraocular muscles intact Neck-no lymphadenopathy or thyromegaly, trachea midline Chest-clear to auscultation. No rales, wheezing or rhonchi Cardiac-regular rate and rhythm, normal S1 and S2 Abdomen-normal bowel sounds, nontender, no hepatosplenomegaly Extremities-no cyanosis, clubbing, or edema. Right ventral wrist catheterization site exhibits hemostasis with no hematoma Neuro-cranial nerves II through XII intact, motor and sensory function within normal limits, strength symmetrical, no focal deficits Psych-normal affect, normal mood Discharge Data Allergies Allergy/AdvReac Type Severity Reaction Status Date / Time No Known Allergies Allergy Verified 07/22/23 13:38 Consultations 08/25/23 14:31 Consult Cardiology Routine Procedures Performed Operation Date: 08/25/23 15:00 Actual Procedures s Cineradiography w/Routine Exam - Josh Rivera MD, PhD p Drug Eluting Stent SGl Vessel - Josh Rivera MD, PhD p Drug Eluting Stent each ADDTL Vessel - Josh Rivera MD, PhD s Fraction Flow [place] SGL Ves - Josh Rivera MD, PhD p Cath, Coronaries ONLY (no LV) - Josh Rivera MD, PhD Ordered Studies 08/25/23 14:48 CL Cath Imgs for PACS use only Stat Hospital Course (1) Abnormal stress test: The patient presented with unstable angina.. He underwent urgent heart catheterization and subsequently had drug-eluting stents placed in the first obtuse marginal branch and distal LAD. He is now stable. Appreciate cardiology consultation and recommendations. Topical nitrates have been discontinued. He will be discharged home today, August 25, and continue on aspirin, metoprolol, statin therapy, Brilinta. Proper use of sublingual nitroglycerin explained to the patient if needed. Repeat EKG done today, August 25, is unremarkable (2) Hypothyroidism: Stable. Continue levothyroxine (3) Dyslipidemia: Stable. Continue statin Plan Home today, August 25, on aspirin, metoprolol, rosuvastatin, and Brilinta. He will use sublingual nitroglycerin as needed for any recurrent chest pain. He will follow-up with his PCP and cardiology as directed Total Time Total Time Spent Total Time Spent (In Minutes): 45-minutes Discharge Plan Discharge Items Patient Disposition: Home - Self-Care Reason For Visit: FAILED OUTPATIENT STRESS TEST, CHEST PAIN Discharge Diagnosis: Unstable angina Condition on Discharge: Good Activity: As commented below Activity Comment: Remain off work until cleared to return to work by PCP or cardiology Non-emergency contact: Primary Care Provider and Chemical Unit Operator Call non-emergency contact if: you have any medication questions and your symptoms worsen Follow-up/Referrals: Zacarias Grayson III, [employer] [Primary Care Provider] - Diet: Regular and Heart Healthy Addtl Attending Provider Instructions: Take aspirin, metoprolol, rosuvastatin, Brilinta as directed. Use nitroglycerin tablets under tongue as directed as needed for any recurrence of any chest discomfort Pending Studies at Discharge: No Stand-Alone Forms: My [facility], Smoking Cessation Medications and DC Order Prescriptions: New rosuvastatin [Crestor] 20 mg Tablet 20 mg PO QAM Qty: 30 0RF metoprolol tartrate 25 mg Tablet 25 mg PO BID Qty: 60 0RF Brilinta 90 mg Tablet 90 mg PO BID Qty: 60 0RF nitroglycerin 0.4 mg tablet, sublingual 0.4 mg sublingual Q5M PRN (Reason: chest pain) Qty: 25 0RF aspirin 81 mg Tablet,Delayed Release (Dr/Ec) 81 mg PO QAM Qty: 0 0RF Continued levothyroxine 75 mcg capsule 75 mcg PO QAM Qty: 90 3RF finasteride 5 mg tablet 5 mg PO HS Qty: 90 3RF alfuzosin [Uroxatral] 10 mg tablet extended release 24 hr 10 mg PO HS Qty: 90 3RF Rx Instructions: administer after the same meal each day cholecalciferol (vitamin D3) 50 mcg (2,000 unit) capsule 50 mcg PO QAM lutein 20 mg capsule 20 mg PO QAM Rx Instructions: give with meal/snack Medical Marijuana 10 mg PO UD PRN (Reason: Pain/stress) Patient Comments: uses oils-uses every evening also uses vape rosuvastatin 10 mg tablet 20 mg PO QAM Rx Instructions: TAKE 1 TABLET BY MOUTH AT BEDTIME Waterflow Fish Oil 1 cap PO QAM Discontinued propranolol 10 mg tablet 10 mg PO BID PRN (Reason: performance anxiety) Qty: 60 0RF Discharge Orders: Discharge Order (Routine); Ordered 08/26/23 Ordered By: Claus Peña Admission Data Admit Date/Time: 08/25/23 14:59 Attending Provider: Claus Peña Admit Provider: Keagan Owens Primary Care Provider: Zacarias Grayson III Other Providers: Moshe Osorio Coding Level of Care Code 18202 INP/OBS DISCH >30 MIN Diagnoses Abnormal stress test R94.39 Hypothyroidism E03.9 Dyslipidemia E78.5
--- NOTE | 2023-08-26 14:31 | Cardiology Progress Note ---
Date of Service August 26, 2023 Assessment & Plan (1) Coronary artery disease involving apache coronary artery with unstable angina pectoris: (2) Presence of stent in LAD coronary artery: (3) Presence of drug coated stent in left circumflex coronary artery: (4) Postherpetic neuralgia: (5) Dyslipidemia, goal LDL below 70: Plan Drug-eluting stents implanted to the left anterior descending and left circumflex OM arteries without complication. Recovering well. Discussed imp ortance of continuing dual antiplatelet therapy for minimum of 6 months post percutaneous intervention uninterrupted. Continue high intensity statin therapy, and beta-yudith as ordered. Appropriate for sublingual nitroglycerin reviewed. Postcardiac catheterization activity restrictions listed below. Outpatient cardiology follow-up in 1 to 2 weeks. I spent a total of 40 minutes on the date of service in preparation, delivery, and documentation of the care provided to this patient, excluding any time spent in the performance of separately billed services. ACTIVITY RECOMMENDATIONS: It is common to feel weak and fatigue for a few days. * Do not drive or operate any motorized equipment for the next three days. * Limit stair usage (2 or 3 trips a day only) for the next three days. * Do not lift anything heavier than 10 pounds for the next three days. * Do not engage in vigorous exercise or any sports for the next five days. * You may shower the day after your procedure, but do not immerse the area for three days. Cleanse the site gently with soap and water. SPECIAL CARE INSTRUCTIONS: * You may replace the pressure dressing or band-aid the morning after the procedure. * After your procedure, it is normal to have a small bruise or small lump at the site. Examine your site daily for any change in the bruise or lump, redness, swelling, drainage or numbness. Notify your doctor if any change. BLEEDING: * If there is a small amount of bleeding at the site, lie down and apply firm pressure with a clean cloth for ten minutes. When the bleeding stops, lie quietly keeping the procedure limb straight for six hours. Notify your doctor as soon as possible. * If the bleeding does not stop after ten minutes or if there is a large amount of bleeding or spurting, call 911 immediately. Continue to lie down and hold firm pressure until help arrives. SKIN IRRITATION: * You may experience some redness and/or swelling in the area where radiation was administered. If any skin irritation occurs, please contact your family physician. FOLLOW UP VISIT: Keep any scheduled doctor appointments. Admission and Anticipated Discharge Date Admission Date: August 25, 2023 Subjective Patient seen and examined at bedside. Feeling better today. No recurrent chest heaviness or tightness. present at bedside. Has questions regarding activity restrictions. Offers no other concerns/complaints. Review of Systems Review of Systems: All systems reviewed & are unremarkable except as noted in Subjective Physical Exam Constitutional: well nourished; no acute distress Respiratory: no respiratory distress, no labored breathing and no retractions Auscultation: no crackles, no rales, no rhonchi and no wheezes Cardiovascular: Rate/Rhythm: regular rate and regular rhythm Heart Sounds: normal S1 and normal S2 Vessels: no JVD and no carotid bruit Extremities: no edema Gastrointestinal (Abdomen): Inspection/Auscultation: abdomen normal to inspection and normal bowel sounds; abdomen not distended Percussion/Palpation: abdomen soft; abdomen nontender, no guarding and abdomen not rigid Neurologic: CN's II-XI intact bilaterally and moves all extremities; no focal motor deficits Results & Data Vital Signs (Past 12 Hours) Vital Signs Temp Pulse Pulse Resp BP BP Pulse Ox 08/26/23 13:29 36.5 C 64 16 96/58 L 119/79 94 08/26/23 13:27 36.5 C 64 16 96/58 L 119/79 94 08/26/23 11:02 36.5 C 64 16 119/79 94 08/26/23 07:54 62 08/26/23 07:31 36.6 C 64 18 116/75 95 08/26/23 02:44 36.6 C 63 18 97 O2 Del Method 08/26/23 13:29 08/26/23 13:27 08/26/23 11:02 Room Air 08/26/23 07:54 08/26/23 07:31 Room Air 08/26/23 02:44 Room Air Laboratory Results Cardiac Enzymes 08/25/23 08/25/23 08/26/23 Range/Units 17:24 20:23 02:00 AST 21 (13-39) U/L Troponin I High Sens 5.3 9.7 D 89.4 H* D (0-20) pg/ml Coagulation 08/26/23 Range/Units 02:00 PT 10.9 (9.0-12.0) Seconds CBC 08/26/23 Range/Units 02:00 WBC 7.35 (4.8-10.8) K/ul RBC 4.86 (4.70-6.10) M/uL Hgb 14.6 (14.0-18.0) g/dl Hct 41.2 L (42.0-52.0) % Plt Count 154 (130-400) K/uL Neut # (Auto) 5.04 (1.40-6.50) K/uL Lymph # (Auto) 1.56 (1.20-3.40) K/uL Dyer # (Auto) 0.44 (0.11-0.59) K/uL Eos # (Auto) 0.23 (0.00-0.50) K/uL Baso # (Auto) 0.05 (0.00-0.20) K/uL Comprehensive Metabolic Panel 08/26/23 Range/Units 02:00 Sodium 139 (136-145) mmol/L Potassium 3.6 (3.5-5.1) mmol/L Chloride 110 H (98-107) mmol/L Carbon Dioxide 22 (21-32) mmol/L BUN 15 (6-23) mg/dl Creatinine 0.79 (0.6-1.4) mg/dl Glucose 97 (70-99(Fasting)) mg/dl Calcium 8.6 (8.6-10.3) mg/dl AST 21 (13-39) U/L ALT 22 (7-52) U/L Alkaline Phosphatase 48 (34-104) U/L Total Protein 6.1 (6.0-8.3) gm/dl Albumin 4.0 (3.4-5.0) gm/dl Intake and Output 08/25/23 08/26/23 08/26/23 22:59 06:59 14:59 Intake Total 183.333 / 333.333 150 / 333.333 930 / 930 Balance 183.333 / 333.333 150 / 333.333 930 / 930 Intake: IV 63.333 / 63.333 Heparin Sodium/Dextrose 25,000 63.333 / 63.333 units In 500 ml @ 1,000 UNITS/ HR 20 mls/hr IV .Q24H [facility] Rx#: [id number] Oral 120 / 270 150 / 270 930 / 930 Other: # Unmeasured Voids 4 Weight 97 kg 97.1 kg 97.1 kg Weight Measurement Method Stated by Patient Patient Weight 08/27/23 06:59 Weight 97.1 kg (1) Coronary artery disease involving apache coronary artery with unstable angina pectoris [place] vs. transplanted heart: apache heart Qualified Code(s): I25.110 - Atherosclerotic heart disease of apache coronary artery with unstable angina pectoris
--- NOTE | 2023-08-26 14:44 | Electrocardiogram Report ---
Test Reason : Blood Pressure : / mmHG Vent. Rate : 061 BPM Atrial Rate : 061 BPM P-R Int : 168 ms QRS Dur : 092 ms QT Int : 390 ms P-R-T Axes : 045 057 074 degrees QTc Int : 392 ms Normal sinus rhythm with sinus arrhythmia Nonspecific T wave abnormality Abnormal ECG When compared with ECG of 01-JUL-2023 09:35, Nonspecific T wave abnormality now evident in Lateral leads Confirmed by Kaden Cabrera ([id number]) on 08/26/2023 2:44:14 PM Referred By: REFERRED SELF Confirmed By:Geoff Cabrera
--- NOTE | 2023-08-26 14:57 | Electrocardiogram Report ---
Test Reason : Blood Pressure : / mmHG Vent. Rate : 064 BPM Atrial Rate : 064 BPM P-R Int : 154 ms QRS Dur : 100 ms QT Int : 420 ms P-R-T Axes : 034 062 038 degrees QTc Int : 433 ms Normal sinus rhythm When compared with ECG of 25-AUG-2023 13:33, No significant change was found Confirmed by Kaden Cabrera ([id number]) on 08/26/2023 2:57:26 PM Referred By: REFERRED SELF Confirmed By:Geoff Cabrera
[2023-08-26] MEDS ORDERED: TICAGRELOR 90 MG HOME PACK PO SCH (21:00)
== END 2023-08-26 16:11 | disposition home or self-care (01) | DRG 322 ==
LOC: ED 12:41 → CC 14:58 → 2S 14:59 → SUATTDRO 14:59 → CC 15:11
PROC: CLB.CCO (2023-08-25 15:00)
DX: I25.110 Atherosclerotic heart disease of native coronary artery with unstable angina pectoris; E03.9 Hypothyroidism, unspecified; G47.30 Sleep apnea, unspecified; Z79.899 Other long term (current) drug therapy; R94.39 Abnormal result of other cardiovascular function study; Z82.49 Family history of ischemic heart disease and other diseases of the circulatory system; F41.1 Generalized anxiety disorder; E78.5 Hyperlipidemia, unspecified

== ENCOUNTER 2023-10-31 08:24 | Observation (INO) ==
--- NOTE | 2023-10-31 08:44 | Emergency Department Note ---
Impression & Plan Chest pain ED Provider Note NAME: REX SUNSHINE AGE: 53 SEX: Male INFORMANT: Patient ED PROVIDER(S): Rogelio Romero MD CHIEF COMPLAINT: Chest pain PLAN: Disposition: Admitted Outpatient prescription management: none Referral: None MEDICAL DECISION MAKING: Patient present because of chest pain. He was given sublingual nitroglycerin which did help. He was given Nitropaste. ECG showed some subtle changes but no acute ST elevation or depression. CBC and chemistry panels were unremarkable. Cardiac troponin was negative x 1. I did discuss the case with cardiology, Dr. Alfaro. He did evaluate the patient in the emergency department with the team. Given the patient's symptoms and findings coupled with his recent stenting he felt the patient would require admission and likely repeat Kenny catheterization. Repeat cardiac troponin was negative. Consultation was made with Dr. Keagan Owens of the [facility] service. Patient was evaluated in the ER for further management. Care/management discussed with: fire manager Level of care consideration(s): After review of the information above and other included data, I feel the patient requires escalation of care to admission Triage Nursing notes: reviewed and agree them. Vital Signs: reviewed and remarkable for no significant abnormalities Additional History obtained from: none Chronic Medical/Social Conditions affecting care: none Prior/ Outside/ External records reviewed: Catheterization report from August 2023 reviewed. Patient had LAD as well as an ostial lesion treated. Differential Diagnosis: Cardiac ischemia, aortic dissection, pulmonary embolism, pneumothorax, pneumonia, pericarditis, myocarditis, esophageal rupture, GERD, cholecystitis, pancreatitis, musculoskeletal, as well as other pathologies. Diagnostics, independently interpreted by me: ECG: Twelve-lead ECG was sinus bradycardia at 58 bpm. Mild biphasic T wave present anteriorly. No ST elevation or depression. Cardiac Monitoring: Cardiac monitoring ordered by me: The patient was placed on continuous cardiac monitoring and observed. It revealed a sinus bradycardic rhythm at 55 beats per minute without ectopy or evidence of dysrhythmia. Medical decision rules: none Imaging studies: Chest x-ray. Findings: A chest x-ray was performed and revealed no pneumothorax, effusion, infiltrate, pulmonary edema, free air under the diaphragm, or wide mediastinum. Impression: No acute disease. HPI: 53 year old Male arrives for evaluation of chest pain. This started yesterday and is intermittent. Pt had stent done in August. Pain feels similar but more mild. The patient also notes the following associated symptoms, feels mildly sweaty. The patient has been given one nitro in cardiac rehab for relieving factors. Current pain is rated as 2/10. Pain was 4/10. Pt denies LOC, headache, fevers, chills, visual changes, neck pain, breathing difficulties, nausea, vomiting, abdominal pain, back pain, melena, hematochezia, urinary symptoms, numbness, weakness, lymphadenopathy, rash, or other complaints. . PAST MEDICAL HISTORY: See Below, CAD PAST SURGICAL HISTORY: See Below, stented coronary SOCIAL HISTORY: See Below, no smoking HOME MEDICATIONS: See Below ALLERGIES: See Below VITALS: See Below PHYSICAL EXAMINATION: GENERAL: Awake, alert, well-appearing, in no distress HENT: Normocephalic, atraumatic. Oropharynx unremarkable. EYES: Normal conjunctiva. Sclera non-icteric. NECK: Inspection normal. Non-tender. Supple. No nuchal rigidity. FROM. No masses. RESPIRATORY: Clear to auscultation. No wheezes. No rales. Normal respiratory effort. CARDIAC: Normal rate. Normal rhythm. No murmurs. No rubs. Extremities warm and well perfused. Pulses equal. No JVD. GI: Soft, non-distended. No tenderness to palpation. No rebound or guarding. No masses. RECTAL: Deferred. MUSCULOSKELETAL: Atraumatic. Chest examination reveals no tenderness. The back is symmetrical on inspection without obvious abnormality. There is no CVA tenderness to palpation. No joint edema. LOWER EXTREMITIES: Calves are equal size bilaterally and non-tender. No edema. No discoloration. NEURO: Normal sensorium. No sensory or motor deficits noted. SKIN: No rash or jaundice noted. 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 Surgical History S/P epidural steroid injection [place] teeth removed S/P hemorrhoidectomy S/P colonoscopy Precancerous polyp, 2018 w/ 5 yrs f/u S/P orchiectomy S/P vasectomy S/P appendectomy Family History Father Myocardial infarction Gallbladder disease Heart disease Dementia Brother Dyslipidemia Denies family history of Ovarian cancer Prostate cancer Breast cancer Colorectal cancer Social History Smoking Status: Never smoker Second Hand Exposure: No; Do You Dip or Chew Tobacco: No; Hx Alcohol Use: No Hx Substance Use: Yes Last Used Substance Other:: medical marijuana Preferred Language: Bruneian Communication Ability: Effective Visual Impairment: No Limitations Hearing Ability: Normal Tracer Clerk Required: No Beliefs That Will Affect Care: None marital status: Current Living Situation: Spouse current occupational status: employed 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 How many Children do You have: 3 Other Information That Helps Us Care for You: No Feels Safe at Home: Yes Safety Concerns: Feels Safe At This Time Childhood Exposure to Second-Hand Smoke: No Diet: regular caffeine: Yes during the past year weight has: remained stable Dental Care, Regularly: Yes Physical Activity Frequency: Daily Seatbelt Use: always Sunscreen Use: Yes Assistive Devices: Glasses Allergies Allergies Allergy/AdvReac Type Severity Reaction Status Date / Time ticagrelor [From Brilinta] Allergy shortness Verified 10/31/23 12:56 of breath Home Meds Home Medications Medication Instructions Recorded Confirmed cholecalciferol (vitamin D3) 50 50 mcg PO QAM 03/06/21 10/31/23 mcg (2,000 unit) capsule lutein 20 mg capsule 20 mg PO QAM 03/06/21 10/31/23 Medical Marijuana 10 mg PO UD PRN Pain/stress 04/28/23 10/31/23 clopidogrel 75 mg tablet (Plavix) 75 mg PO DAILY 10/31/23 10/31/23 Previous Rx's Medication Instructions Recorded levothyroxine 75 mcg capsule 75 mcg PO QAM #90 caps 05/07/23 alfuzosin 10 mg tablet,extended 10 mg PO HS #90 tabs 07/07/23 release 24 hr (Uroxatral) finasteride 5 mg tablet 5 mg PO HS #90 tabs 07/07/23 aspirin 81 mg tablet,delayed 81 mg PO QAM #0 tabs 08/26/23 release metoprolol tartrate 25 mg tablet 25 mg PO BID #60 tabs 08/26/23 nitroglycerin 0.4 mg sublingual 0.4 mg sublingual Q5M PRN chest 08/26/23 tablet pain #25 tabs Results & Data (ED) Vital Signs Vital Signs - 24 hr 10/31/23 08:25 10/31/23 08:36 10/31/23 08:40 Temperature 36.5 C Temperature Source Oral Pulse Rate 57 L 56 L Pulse Rate [Finger] Pulse Rate from SpO2 Sensor Pulse Rhythm Regular Pulse Strength Normal Respiratory Rate 20 Respiratory Effort / Characteristics Non-Labored Spontaneous Respiratory Depth Normal Respiratory Pattern Regular Blood Pressure 123/78 Blood Pressure [Right Arm] Blood Pressure Mean 93 Blood Pressure Mean [Right Arm] Blood Pressure Position Sitting Pulse Oximetry 95 95 Oxygen Delivery Method Room Air Room Air Sepsis Recent Fever Within 48 Hours No Sepsis New/Unexplained Change in Mental Status No Sepsis Action Taken by Nursing No Action Required 10/31/23 08:40 10/31/23 08:51 10/31/23 09:30 Temperature Temperature Source Pulse Rate 52 L 56 L 59 L Pulse Rate [Finger] Pulse Rate from SpO2 Sensor 58 L 60 Pulse Rhythm Regular Pulse Strength Respiratory Rate 18 13 14 Respiratory Effort / Characteristics Respiratory Depth Respiratory Pattern Blood Pressure 115/81 106/76 Blood Pressure [Right Arm] Blood Pressure Mean 92 86 Blood Pressure Mean [Right Arm] Blood Pressure Position Pulse Oximetry 95 96 95 Oxygen Delivery Method Room Air Sepsis Recent Fever Within 48 Hours Sepsis New/Unexplained Change in Mental Status Sepsis Action Taken by Nursing 10/31/23 10:30 10/31/23 12:00 Temperature Temperature Source Pulse Rate 54 L Pulse Rate [Finger] 53 L Pulse Rate from SpO2 Sensor 57 L Pulse Rhythm Pulse Strength Respiratory Rate 17 16 Respiratory Effort / Characteristics Respiratory Depth Respiratory Pattern Blood Pressure 116/76 Blood Pressure [Right Arm] 100/71 Blood Pressure Mean 89 Blood Pressure Mean [Right Arm] 80 Blood Pressure Position Pulse Oximetry 94 96 Oxygen Delivery Method Room Air Sepsis Recent Fever Within 48 Hours Sepsis New/Unexplained Change in Mental Status Sepsis Action Taken by Nursing Laboratory Data 10/31/23 08:25 10/31/23 08:25 Lab Results 10/31/23 10/31/23 Range/Units 08:25 11:17 WBC 4.17 L (4.8-10.8) K/ul RBC 5.33 (4.70-6.10) M/uL Hgb 15.8 (14.0-18.0) g/dl Hct 46.6 (42.0-52.0) % MCV 87.4 (80.0-100.0) fL MCH 29.6 (25.0-34.0) pg MCHC 33.9 (32.0-36.0) g/dL RDW Std Deviation 39.5 (36.4-46.3) fL RDW Coeff of [place] 12.4 (11.5-14.5) % Plt Count 146 (130-400) K/uL MPV 11.5 (9.4-12.4) fL Immature Gran % (Auto) 0.0 % Neut % (Auto) 52.0 % Lymph % (Auto) 37.4 % [place] % (Auto) 7.2 % Eos % (Auto) 2.4 % Baso % (Auto) 1.0 % Neut # (Auto) 2.17 (1.40-6.50) K/uL Lymph # (Auto) 1.56 (1.20-3.40) K/uL [place] # (Auto) 0.30 (0.11-0.59) K/uL Eos # (Auto) 0.10 (0.00-0.50) K/uL Baso # (Auto) 0.04 (0.00-0.20) K/uL Immature Gran # (Auto) 0.00 L (0.01-0.20) K/uL PT 10.3 (9.0-12.0) Seconds INR 0.9 (0.9-1.1) APTT 30 (21-31) Seconds PTT Ratio 1.1 Sodium 140 (136-145) mmol/L Potassium 4.0 (3.5-5.1) mmol/L Chloride 111 H (98-107) mmol/L Carbon Dioxide 23 (21-32) mmol/L Anion Gap 6 (3-11) BUN 13 (6-23) mg/dl Creatinine 0.82 (0.6-1.4) mg/dl Est Cr Clr Drug Dosing 130.2 ml/min Est GFR ( Amer) 117.8 ml/min Est GFR (Non-Af Amer) 101.7 ml/min BUN/Creatinine Ratio 15.9 (10-20) Glucose 109 H (70-99(Fasting)) mg/dl Calcium 9.1 (8.6-10.3) mg/dl Total Bilirubin 0.5 (0.2-1.0) mg/dl AST 22 (13-39) U/L ALT 26 (7-52) U/L Alkaline Phosphatase 53 (34-104) U/L Troponin I High Sens 2.5 < 2.3 (0-20) pg/ml Total Protein 6.8 (6.0-8.3) gm/dl Albumin 4.4 (3.4-5.0) gm/dl Globulin 2.4 L (2.5-4.0) gm/dl Albumin/Globulin Ratio 1.8 (0.9-2) Administered Medications Acetaminophen (Acetaminophen 500 Mg Tab) 500 mg PO Q4H PRN PRN Reason: Pain Stop: 11/30/23 16:21 Last Admin: 10/31/23 16:36 Dose: 500 mg Documented By: JHOAN Lactated Ringer's (Lr) 1,000 mls @ 125 mls/hr IV .Q8H [facility] Stop: 10/31/23 20:44 Last Admin: 10/31/23 16:33 Dose: Not Given Documented By: JHOAN Sodium Chloride (Nss) 1,000 mls @ 100 mls/hr IV .Q10H [facility] Stop: 10/31/23 20:44 Last Admin: 10/31/23 16:08 Dose: 100 mls/hr Documented By: JHOAN Nitroglycerin (Nitroglycerin Sl 0.4 Mg/Tab Tab) 0.4 mg SL Q5M PRN PRN Reason: Chest Pain Stop: 11/30/23 08:43 Last Admin: 10/31/23 08:50 Dose: 0.4 mg Documented By: ARCHIE Discontinued Medications Adenosine (Adenosine Iv Soln 3 Mg/Ml 20 Ml Vial) Confirm Administered Dose 120 mg IV .STK-MED ONE Stop: 10/31/23 13:49 Last Admin: 10/31/23 14:41 Dose: 120 mg Documented By: KASHMIR Clopidogrel Bisulfate (Clopidogrel Bisulfate 300 Mg Tab) Confirm Administered Dose 300 mg .ROUTE .STK-MED ONE Stop: 10/31/23 15:23 Last Admin: 10/31/23 15:25 Dose: 300 mg Documented By: BRENT Fentanyl Citrate (Fentanyl Citrate Pf 100 Mcg/2 Ml Vial) Confirm Administered Dose 100 mcg .ROUTE .STK-MED ONE Stop: 10/31/23 13:01 Last Increment: 10/31/23 14:40 Dose: 25 mcg Documented By: KASHMIR Fentanyl Citrate (Fentanyl Citrate Pf 100 Mcg/2 Ml Vial) Confirm Administered Dose 100 mcg .ROUTE .STK-MED ONE Stop: 10/31/23 14:20 Last Admin: 10/31/23 14:41 Dose: 100 mcg Documented By: KASHMIR Heparin Sodium (Porcine) (Heparin (Porcine) 1000 Unit/Ml 10 Ml (Record Filing Clerk Use Only)) Confirm Administered Dose 10,000 units .ROUTE .STK-MED ONE Stop: 10/31/23 13:00 Last Admin: 10/31/23 14:39 Dose: 10,000 units Documented By: KASHMIR Heparin Sodium/Sodium Chloride (Heparin In Nss Infusion 1000 Unit/500 Ml (2 U/Ml) Bag) Confirm Administered Dose 3,000 units IV .STK-MED ONE Stop: 10/31/23 13:01 Last Admin: 10/31/23 14:40 Dose: 3,000 units Documented By: JUANITA Sodium Chloride (Nss) 1,000 mls @ 125 mls/hr IV .Q8H [facility] Stop: 11/30/23 08:44 Last Admin: 10/31/23 08:50 Dose: 125 mls/hr Documented By: ARCHIE Iodixanol (Iodixanol (Visipaque) 320 Mg/Ml 100ml) Confirm Administered Dose 1 ml IV .STK-MED ONE Stop: 10/31/23 13:01 Last Admin: 10/31/23 16:34 Dose: Not Given Documented By: JHOAN Ioversol (Optiray 350) Confirm Administered Dose 1 ml .ROUTE .STK-MED ONE Stop: 10/31/23 13:01 Last Admin: 10/31/23 14:48 Dose: 150 ml Documented By: JUANITA Midazolam HCl (Midazolam Hcl 1 Mg/Ml 2ml Vial) Confirm Administered Dose 2 mg .ROUTE .STK-MED ONE Stop: 10/31/23 13:00 Last Increment: 10/31/23 14:39 Dose: 1 mg Documented By: KASHMIR Midazolam HCl (Midazolam Hcl 1 Mg/Ml 2ml Vial) Confirm Administered Dose 2 mg .ROUTE .STK-MED ONE Stop: 10/31/23 14:20 Last Admin: 10/31/23 14:42 Dose: 2 mg Documented By: KASHMIR Nicardipine HCl (Nicardipine Hcl Inj 2.5 Mg/Ml 10 Ml Amp) Confirm Administered Dose 25 mg .ROUTE .STK-MED ONE Stop: 10/31/23 13:01 Last Admin: 10/31/23 14:41 Dose: 100 mg Documented By: JUANITA Nitroglycerin (Nitroglycerin 2% Ointment 30gm Tube) 0.5 inch EXT NOW STA Stop: 10/31/23 08:58 Last Admin: 10/31/23 09:05 Dose: 0.5 inch Documented By: Nitroglycerin/Dextrose (Nitroglycerin/D5w 100mcg/Ml 20ml Syr) Confirm Administered Dose 2,000 mcg .ROUTE .STK-MED ONE Stop: 10/31/23 13:01 Last Admin: 10/31/23 14:41 Dose: 100 mcg Documented By: JUANITA Imaging Data Radiologist's Impression: Chest X-Ray 10/31/23 08:32 SINGLE VIEW CHEST CLINICAL HISTORY: Atypical chest pain. FINDINGS: An AP, portable, upright chest radiograph is compared to study dated 08/25/2023. The cardiomediastinal silhouette is unremarkable. The lungs and pleural spaces are clear. No pneumothorax is seen. The bony thorax is grossly intact. IMPRESSION: No active disease in the chest. ACT 112: Negative or not required by law. Electronically signed by: Philip Dwyer M.D. 10/31/2023 9:01 AM Discharge Plan Visit Data Chief Complaint: Cardiac Assessment ED Provider: Rogelio Romero Discharge Problem: Chest pain Discharge Instructions Interventions: ED Discharge Assessment Last Done: 10/31/23 12:41
[2023-10-31] MEDS: SODIUM CHLORIDE 0.9% 1,000 ML IV SCH ×2 (08:50→16:08)
[2023-10-31] MEDS: NITROGLYCERIN SL 0.4 MG/TAB TAB SL PRN (08:50)
--- NOTE | 2023-10-31 09:02 | XRay Report ---
SINGLE VIEW CHEST CLINICAL HISTORY: Atypical chest pain. FINDINGS: An AP, portable, upright chest radiograph is compared to study dated 08/25/2023. The cardiom ediastinal silhouette is unremarkable. The lungs and pleural spaces are clear. No pneumothorax is see n. The bony thorax is grossly intact. IMPRESSION: No active disease in the chest. ACT 112: Negative or not required by law. Electronically signed by: Philip Dwyer M.D. 10/31/2023 9:01 AM
[2023-10-31 09:05] LABS: Basophils # (auto) 0.04 K/uL (0.00-0.20); Eosinophils % (auto) 2.4 %; Hematocrit (blood only) 46.6 % (42.0-52.0); Hemoglobin 15.8 g/dl (14.0-18.0); Lymphocytes # (auto) 1.56 K/uL (1.20-3.40); Lymphocytes % (auto) 37.4 %; Mean Corpuscular Hemoglobin 29.6 pg (25.0-34.0); Mean Corpuscular Hgb Conc 33.9 g/dL (32.0-36.0); Mean Corpuscular Volume 87.4 fL (80.0-100.0); Mean Platelet Volume 11.5 fL (9.4-12.4); Monocytes % (auto) 7.2 %; Neutrophils # (auto) 2.17 K/uL (1.40-6.50); Platelet Count 146 K/uL (130-400); RDW Coefficient of Variation 12.4 % (11.5-14.5); RDW Standard Deviation 39.5 fL (36.4-46.3); Red Blood Count 5.33 M/uL (4.70-6.10); White Blood Count 4.17 K/ul (4.8-10.8)
[2023-10-31] MEDS: NITROGLYCERIN 2% OINTMENT 30GM TUBE EXT STA (09:05)
[2023-10-31 09:19] LABS: Albumin Globulin Ratio 1.8 (0.9-2); Albumin Level 4.4 gm/dl (3.4-5.0); BUN Creatinine Ratio 15.9 (10-20); Bilirubin,Total 0.5 mg/dl (0.2-1.0); Calcium 9.1 mg/dl (8.6-10.3); Creatinine Clr Calc Pharmacy 130.2 ml/min; Est GFR (African American) 117.8 ml/min; Est GFR (Non-African American) 101.7 ml/min; Globulin 2.4 gm/dl (2.5-4.0); Total Protein 6.8 gm/dl (6.0-8.3)
[2023-10-31 09:25] LABS: Troponin I High Sensitivity 2.5 pg/ml (0-20)
[2023-10-31 09:26] LABS: INR 0.9 (0.9-1.1); Partial Thromboplastin Ratio 1.1; Partial Thromboplastin Time 30 Seconds (21-31); Prothrombin Time 10.3 Seconds (9.0-12.0)
--- NOTE | 2023-10-31 10:00 | Cardiology Consultation ---
Date of Consultation October 31, 2023 Assessment & Plan (1) Chest pain: Plan Plans: 53 yo man presenting with chest pain during cardiac rehab Known multivessel CAD S/P PCI to LAD + OM Residual RCA disease + Hx of premature CAD (brother and father of AR - 40's) Chest pain at rest Dx: Unstable Angina * Cycle Troponin levels * Start Heparin * Check Transthoracic ECHO - ordered * Discuss with Interventional Cardiology re: potential repeat Coronary Angiography * Continue ASA 81 mg po per day * Continue Plavix 75 mg po per day * Continue Toprol XL 25 mg po per day * Continue Pravastatin 40 mg po per day (Pt not taking) * Last Lipid Panel - Total 105, LDL 54, HDL 37, Trig 72 * Check Lp(a) * Check Apolipoprotein B * Patient will Likely need PCSK9i 70 min spent addressing challenges, educating and advancing daily plan of care Darrion Alfaro History of Present Illness Reason for Consultation: Chest Pain Requesting Physician: Emergency Department Attending Physician: Darrion Alfaro, Cardiology History of Present Illness 53 yo man presenting with chest discomfort in the setting of cardiac rehab. 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 * Lasted several hours- waxing and waning, stuttering * SL NTG improved Angina * No associated Sx (no N/V, + diaphoresis) ASCVD Risks: * Hyperlipidemia * Premature CAD Hx * Not smoker * No significant ETOH Allergies Allergy/AdvReac Type Severity Reaction Status Date / Time ticagrelor [From Brilinta] Allergy shortness Verified 09/01/23 16:13 of breath Home Medications Medication Instructions Recorded Confirmed Type cholecalciferol (vitamin D3) 50 50 mcg PO QAM 03/06/21 10/31/23 History mcg (2,000 unit) capsule lutein 20 mg capsule 20 mg PO QAM 03/06/21 10/31/23 History Medical Marijuana 10 mg PO UD PRN Pain/stress 04/28/23 10/31/23 History levothyroxine 75 mcg capsule 75 mcg PO QAM #90 caps 05/07/23 10/31/23 Rx alfuzosin 10 mg tablet,extended 10 mg PO HS #90 tabs 07/07/23 10/31/23 Rx release 24 hr (Uroxatral) finasteride 5 mg tablet 5 mg PO HS #90 tabs 07/07/23 10/31/23 Rx aspirin 81 mg tablet,delayed 81 mg PO QAM #0 tabs 08/26/23 10/31/23 Rx release metoprolol tartrate 25 mg tablet 25 mg PO BID #60 tabs 08/26/23 10/31/23 Rx nitroglycerin 0.4 mg sublingual 0.4 mg sublingual Q5M PRN chest 08/26/23 10/31/23 Rx tablet pain #25 tabs clopidogrel 75 mg tablet (Plavix) 75 mg PO DAILY 10/31/23 10/31/23 History Patient History Medical History (Updated 10/31/23 @ 08:43 by Rogelio Romero MD) Dyslipidemia, goal LDL below 70 Postherpetic neuralgia Dyslipidemia Hypothyroidism Dyslipidemia Lumbar herniated disc BPH (benign prostatic hyperplasia) Family history of heart disease father had heart attack Sleep apnea cpap Situational anxiety Hypothyroidism H/O hemorrhoids H/O testicular cancer dx 2006, sx tx. Surgical History S/P epidural steroid injection [place] teeth removed S/P hemorrhoidectomy S/P colonoscopy Precancerous polyp, 2018 w/ 5 yrs f/u S/P orchiectomy S/P vasectomy S/P appendectomy Family History Father Myocardial infarction Gallbladder disease Heart disease Dementia Brother Dyslipidemia Denies family history of Ovarian cancer Prostate cancer Breast cancer Colorectal cancer Social History Smoking Status: Never smoker Second Hand Exposure: No; Do You Dip or Chew Tobacco: No; Hx Alcohol Use: No Hx Substance Use: Yes Last Used Substance Other:: daily Preferred Language: Yoruba Communication Ability: Effective Visual Impairment: No Limitations Hearing Ability: Normal Election Supervisor Required: No Beliefs That Will Affect Care: None marital status: Current Living Situation: Spouse current occupational status: employed 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 How many Children do You have: 3 Feels Safe at Home: Yes Childhood Exposure to Second-Hand Smoke: No Diet: regular caffeine: Yes during the past year weight has: remained stable Dental Care, Regularly: Yes Physical Activity Frequency: Daily Seatbelt Use: always Sunscreen Use: Yes Assistive Devices: CPAP and Glasses Review of Systems Review of Systems: All systems reviewed & are unremarkable except as noted in HPI & below Physical Exam Physical Exam: Slightly overweight Glasses [place] No elevation in JVP S1S2 CTA B No C/C/E; warm and perfused Right radial 2/2 Results & Data Vital Signs (Past 12 Hours) Vital Signs Temp Pulse Resp BP Pulse Ox O2 Del Method 10/31/23 08:51 56 L 13 115/81 96 10/31/23 08:40 52 L 18 95 Room Air 10/31/23 08:40 95 Room Air 10/31/23 08:36 56 L 10/31/23 08:25 36.5 C 57 L 20 123/78 95 Room Air Laboratory Results Cardiac Enzymes 10/31/23 Range/Units 08:25 AST 22 (13-39) U/L Troponin I High Sens 2.5 (0-20) pg/ml Coagulation 10/31/23 Range/Units 08:25 PT 10.3 (9.0-12.0) Seconds APTT 30 (21-31) Seconds CBC 10/31/23 Range/Units 08:25 WBC 4.17 L (4.8-10.8) K/ul RBC 5.33 (4.70-6.10) M/uL Hgb 15.8 (14.0-18.0) g/dl Hct 46.6 (42.0-52.0) % Plt Count 146 (130-400) K/uL Neut # (Auto) 2.17 (1.40-6.50) K/uL Lymph # (Auto) 1.56 (1.20-3.40) K/uL Cass # (Auto) 0.30 (0.11-0.59) K/uL Eos # (Auto) 0.10 (0.00-0.50) K/uL Baso # (Auto) 0.04 (0.00-0.20) K/uL Comprehensive Metabolic Panel 10/31/23 Range/Units 08:25 Sodium 140 (136-145) mmol/L Potassium 4.0 (3.5-5.1) mmol/L Chloride 111 H (98-107) mmol/L Carbon Dioxide 23 (21-32) mmol/L BUN 13 (6-23) mg/dl Creatinine 0.82 (0.6-1.4) mg/dl Glucose 109 H (70-99(Fasting)) mg/dl Calcium 9.1 (8.6-10.3) mg/dl AST 22 (13-39) U/L ALT 26 (7-52) U/L Alkaline Phosphatase 53 (34-104) U/L Total Protein 6.8 (6.0-8.3) gm/dl Albumin 4.4 (3.4-5.0) gm/dl Intake and Output 10/30/23 10/31/23 10/31/23 22:59 06:59 14:59 Other: Weight 98.5 kg Weight Measurement Method Built in [facility] Patient Weight 11/01/23 06:59 Weight 98.5 kg Diagnostic Findings Cardiac Catheterization: 08/2023 Coronary Anatomy Dominant: Right Left Main (% Stenosis): Normal LAD (% Stenosis): Proximal (40 to 50%), Mid (40 to 50%) and Distal (60 to 70%) D1 (% Stenosis): Normal D2 (% Stenosis): Normal Circumflex (% Stenosis): Ostial (20%) OM1 (% Stenosis): Mid (80 to 90% plus thrombus) L PL1 (% Stenosis): Normal RCA (% Stenosis): Proximal (Mild) and Mid (50 to 70%) R PDA (% Stenosis): Normal R PL1 (% Stenosis): Normal Ramus (% Stenosis): Normal (Diffuse less than 20%) Diagnostic Physicians Name: Josh Rivera MD, PhD Closure Device Percutaneous Entry Location: Radial Closure Device: Radial Band Recommendations: Medical Therapy and/or Counseling and PCI without planned CABG PCI Indication: Unstable Angina Lesion Segment Name: LCx/OM1 Culprit Artery: Yes Stenosis Prior to Rx (%): 80 to 90% Pre-Procedure JANIS Flow: 2 Previously Treated Lesion: No Lesion Complexity: Non-High/Non-C Lesion Length (mm): 15 mm Thrombus Present: Yes Bifurcation Lesion: Yes Guidewire Across Lesion: Yes Lesion #2 Segment Name: Distal LAD Culprit Artery: No Stenosis Prior to Rx (%): 70% Chronic Total Occlusion: No FFR: Yes (IFR positive) Pre-Procedure JANIS Flow: 3 Previously Treated Lesion: No Lesion Complexity: Non-High/Non-C Lesion Length (mm): 12 mm Thrombus Present: No Bifurcation Lesion: No Guidewire Across Lesion: Yes Intraprocedure Events Significant Disection: No Perforation: No Stress Test : 08/25/2023 + Positive for Ischemia Medications Administered Current Inpatient Medications Sodium Chloride (Nss) 1,000 mls @ 125 mls/hr IV .Q8H [facility] Stop: 11/30/23 08:44 Last Admin: 10/31/23 08:50 Dose: 125 mls/hr Nitroglycerin (Nitroglycerin Sl 0.4 Mg/Tab Tab) 0.4 mg SL Q5M PRN PRN Reason: Chest Pain Stop: 11/30/23 08:43 Last Admin: 10/31/23 08:50 Dose: 0.4 mg
--- NOTE | 2023-10-31 12:08 | History & Physical Report ---
Date of Service October 31, 2023 Assessment & Plan (1) Chest pain: Plan: Chest pain, history of recent NSTEMI 1 day of chest pain waxing and waning from a 42/10 in intensity, which did resolve after receiving nitro this morning. 1 and 2-hour troponin reassuringly normal, EKG does show V2/V3 T wave inversion. No territorial ST segment changes >=1 mm Patient does feel the pain is partially but not completely reproducible at palpation of the left mid chest wall. Despite this has other concerning features including resolution following nitro, association with an episode of sweating this morning, T wave changes, and high risk history. Seen by cardiology. Evaluating for catheterization today. Patient is pain- free at time bedside assessment. Not recommended for heparinization at time of admission. 08/25/2023: PCI to OM/LAD. Multivessel coronary disease noted, moderate to severe residual RCA disease noted. This was performed after patient had a stress echo indicative of ischemia Patient is intolerant due to Brilinta due to dyspnea Aspirin/Plavix continued Toprol continued Patient has not been taking statin due to intolerance for 3 weeks. This was reviewed with patient. He did not try pravastatin due to concern for the degree of myalgias he had with his prior statin, and for which COQ10 did not help. Discussed secondary benefit of plaque stabilization. He notes that he never actually tried the pravastatin due to concern for myalgias and will think about this for the stabilization with his heart disease despite his cholesterol being well-controlled at last check. Hyperlipidemia Lipids 03/14/2023: Triglyceride 72/cholesterol 105/LDL 54/HDL 37/VLDL 14 LDL well-controlled below 70 at last check. Repeat lipids pending See statin discussion above (2) Coronary artery disease involving alutiiq coronary artery with unstable angina pectoris: Plan: As noted (3) Sleep apnea: Plan: CPAP nightly (4) Hypothyroidism: Plan: Hypothyroidism Synthroid continued TSH/T4 pending (5) BPH (benign prostatic hyperplasia): Plan: Continue finasteride Continue alfuzosin Bladder scan as needed (6) H/O alcohol abuse: Plan: In remission x 3 years. Low risk. Plan Diet: heart healthy post-cath Disposition: Medical telemetry CODE STATUS: Full code History of Present Illness Primary Care Provider: Zacarias Grayson III, DIDI Tremaine is a 53-year-old male with a past medical history of multivessel CAD with PCI last cath 08/25/2023 during which she had PCI to OM and LAD follows with [facility] cardiology, hypothyroidism, dyslipidemia who presents to the ER with recurrent intermittent chest pain which began 1 day ago, who had 4/10 pain on arrival to the ER with improvement to 2/10 following nitro. Baseline EKG normal sinus rhythm Pain recurrent with exertion, and in ER recurrent at rest inbetween nitro. Comfortable following nitro paste administration. Seen by cardiology, pt to be admitted to medicine and have a cath Seen at the bedside. REports yesterday around noon was working on the computer when he had sudden onset of chest pain the front center/off to the L side of his chest which was ~4-5/10 at its worst. Waxed and waned down to around a 2 through the evening, was not pain free prior to bed. 2/10 when he went to bed. Walking around did seem in increase the pain slightly, did not resolve at rest. Woke up with 2-4/10 pain today. Went to cardiac rehab, and was recommended to come to the ER for further evaluation. No shortness of breath with pain. 'I havent been doing anything to be short of breath, but nothing has come on on its down.' Endorses some sweats this morning which have resolved NO nausea, vomting, stomach pain, diarrhea, or constipation. Did nto attempt any tx yesterday Today feels the nitro did help, and at time of bedside assessment reports he has become pain free since the nitro paste was applied. NO cold/flu like sx, no dysuria, no abdominal pain He did take his medications this morning including ASA/plaavix. Has not missed any doses No orthopnea No leg swelling Has not pravastatin. 'I have been on rosuvastatin, that didn't agree with me and I felt terrible. Muscle aches and felt like someone was sitting on my shoudlers. After they took me off I felt better than I had in a long time. 'Swithed to pravastatin, but has been reticent to take it due to prior muscle aches. Did not take any doses, 'just a mental block at this point'. No tobacco use No alcohol use Seasonal allergies dyspnea to Brilinta, otherwise denies medical allergies Medical History: Reviewed Medications: Reviewed Surgical History: Reviewed Family history: Reviewed Code Status: Full Code Allergies Allergy/AdvReac Type Severity Reaction Status Date / Time ticagrelor [From Brilinta] Allergy shortness Verified 09/01/23 16:13 of breath Home Medications Medication Instructions Recorded Confirmed Type cholecalciferol (vitamin D3) 50 50 mcg PO QAM 03/06/21 10/31/23 History mcg (2,000 unit) capsule lutein 20 mg capsule 20 mg PO QAM 03/06/21 10/31/23 History Medical Marijuana 10 mg PO UD PRN Pain/stress 04/28/23 10/31/23 History levothyroxine 75 mcg capsule 75 mcg PO QAM #90 caps 05/07/23 10/31/23 Rx alfuzosin 10 mg tablet,extended 10 mg PO HS #90 tabs 07/07/23 10/31/23 Rx release 24 hr (Uroxatral) finasteride 5 mg tablet 5 mg PO HS #90 tabs 07/07/23 10/31/23 Rx aspirin 81 mg tablet,delayed 81 mg PO QAM #0 tabs 08/26/23 10/31/23 Rx release metoprolol tartrate 25 mg tablet 25 mg PO BID #60 tabs 08/26/23 10/31/23 Rx nitroglycerin 0.4 mg sublingual 0.4 mg sublingual Q5M PRN chest 08/26/23 Rx tablet pain #25 tabs clopidogrel 75 mg tablet (Plavix) 75 mg PO DAILY 10/31/23 10/31/23 History Past Med/Surg History Problem List (Updated 10/31/23 @ 08:43 by Rogelio Romero MD) Chest pain (Acute) Presence of drug coated stent in left circumflex coronary artery Presence of stent in LAD coronary artery Coronary artery disease involving alutiiq coronary artery with unstable angina pectoris H/O alcohol abuse quit 3 years ago History of colon polyps Encounter for pre-operative examination Elevated PSA Urinary retention Prostatic enlargement Lumbar disc herniation Sleep apnea Medical History (Updated 10/31/23 @ 08:43 by Rogelio Romero MD) Dyslipidemia, goal LDL below 70 Postherpetic neuralgia Dyslipidemia Hypothyroidism Dyslipidemia Lumbar herniated disc BPH (benign prostatic hyperplasia) Family history of heart disease father had heart attack Sleep apnea cpap Situational anxiety Hypothyroidism H/O hemorrhoids H/O testicular cancer dx 2007, sx tx. Surgical History S/P epidural steroid injection [place] teeth removed S/P hemorrhoidectomy S/P colonoscopy Precancerous polyp, 2018 w/ 5 yrs f/u S/P orchiectomy S/P vasectomy S/P appendectomy Family History Father Myocardial infarction Gallbladder disease Heart disease Dementia Brother Dyslipidemia Denies family history of Ovarian cancer Prostate cancer Breast cancer Colorectal cancer Social History Smoking Status: Never smoker Second Hand Exposure: No; Do You Dip or Chew Tobacco: No; Hx Alcohol Use: No Hx Substance Use: Yes Last Used Substance Other:: daily Preferred Language: Irish Communication Ability: Effective Visual Impairment: No Limitations Hearing Ability: Normal Senior Support Analyst Required: No Beliefs That Will Affect Care: None marital status: Current Living Situation: Spouse current occupational status: employed 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 NAD. Cooperative. HEENT: Atraumatic, normocephalic. Vision/hearing intact Pulm: CTAB A&P. -wheezes, -rales, -rhonchi. Symmetrical chest rise. No increased work of breathing. No respiratory distress. Cardiac: Bradycardic, no murmurs/rubs. Radial pulses intact and symmetrical. No JVD. No lower extremity edema Abdominal: Nontender, nondistended, soft. BS present. Results & Data Results & Data Vital Signs (Past 12 Hours) Vital Signs Temp Pulse Pulse Resp BP BP Pulse Ox 10/31/23 12:00 53 L 16 100/71 96 10/31/23 10:30 54 L 17 116/76 94 10/31/23 09:30 59 L 14 106/76 95 10/31/23 08:51 56 L 13 115/81 96 10/31/23 08:40 52 L 18 95 10/31/23 08:40 95 10/31/23 08:36 56 L 10/31/23 08:25 36.5 C 57 L 20 123/78 95 O2 Del Method 10/31/23 12:00 Room Air 10/31/23 10:30 10/31/23 09:30 10/31/23 08:51 10/31/23 08:40 Room Air 10/31/23 08:40 Room Air 10/31/23 08:36 10/31/23 08:25 Room Air PG Care Time/CCT Total # of Minutes Spent Total Time Spent with Patient: Total time spent is greater than 50% in coordination of care (as documented) at patient's floor/unit and/or counseling patient: Coding Level of Care Code 63507 INT INP/OBS CARE 3/75MIN Diagnoses Chest pain R07.9 Coronary artery disease involving alutiiq coronary artery of alutiiq heart with unstable angina pectoris I25.110 [place] vs. transplanted heart: alutiiq heart Sleep apnea G47.30 Hypothyroidism E03.9 BPH (benign prostatic hyperplasia) N40.0 H/O alcohol abuse F10.11 (2) Coronary artery disease involving alutiiq coronary artery with unstable angina pectoris [place] vs. transplanted heart: alutiiq heart Qualified Code(s): I25.110 - Atherosclerotic heart disease of alutiiq coronary artery with unstable angina pectoris
[2023-10-31] MEDS: MIDAZOLAM HCL 1 MG/ML 2ML VIAL ONE ×2 (14:39→14:42)
[2023-10-31] MEDS: HEPARIN (PORCINE) 1000 UNIT/ML 10 ML (CATH LAB USE ONLY) ONE (14:39)
[2023-10-31] MEDS: fentaNYL citrate PF 100 MCG/2 ML VIAL ONE ×2 (14:40→14:41)
[2023-10-31] MEDS: ADENOSINE IV SOLN 3 MG/ML 20 ML VIAL IV ONE (14:41)
[2023-10-31] MEDS: NITROGLYCERIN/D5W 100MCG/ML 20ML SYR ONE (14:41)
[2023-10-31] MEDS: niCARdipine HCL INJ 2.5 MG/ML 10 ML AMP ONE (14:41)
[2023-10-31] MEDS: OPTIRAY 350 ONE (14:48)
--- NOTE | 2023-10-31 15:09 | Post Anesthesia Assessment ---
Date of Service October 31, 2023 Post Sedation Assessment Vital Signs Temp Pulse Pulse Resp BP BP Pulse Ox 10/31/23 15:00 98.2 F 53 L 18 103/75 97 10/31/23 12:53 98.5 F 52 L 16 108/74 97 10/31/23 12:36 61 10/31/23 12:00 53 L 16 100/71 96 10/31/23 10:30 54 L 17 116/76 94 10/31/23 09:30 59 L 14 106/76 95 10/31/23 08:51 56 L 13 115/81 96 10/31/23 08:40 52 L 18 95 10/31/23 08:40 95 10/31/23 08:36 56 L 10/31/23 08:25 97.7 F 57 L 20 123/78 95 O2 Del Method 10/31/23 15:00 Room Air 10/31/23 12:53 Room Air 10/31/23 12:36 10/31/23 12:00 Room Air 10/31/23 10:30 10/31/23 09:30 10/31/23 08:51 10/31/23 08:40 Room Air 10/31/23 08:40 Room Air 10/31/23 08:36 10/31/23 08:25 Room Air Recovery Score Activity: Moves 4 extremities Respiration: Deep Breath/Cough Circulation: +/-20% PreAnes Value Consciousness: Fully Awake Oxygen Saturation: > 92% On Room Air Post Anesthesia Score: 10 Discharge Sedation Level of Care: Fast Track Phase II Post Sedation Plan On clinical assessment, the patient appears to have tolerated the sedation without complications. Patient is recovering as anticipated. Patient will continue to be monitored by nursing and may be discharged when sedation discharge criteria are met per below protocol. Upon Completions of procedure up to 15 minutes continue every 5 minute vital signs and the P.A.R. score; then discharge to a Phase I or Fast Track to Phase II per the following guidelines: * Discharge Patient to appropriate Phase II area if PAR is 8 or greater or return to pre- procedure baseline. The post - procedure orders will be as directed. * If PAR score is less than 8 or not return to pre-procedure baseline then patient will follow Phase I monitoring till PAR is reached for Phase II. The Phase I may be done in procedure room or may call to secure a Phase I area. * If naloxone or flumazenil are used for reversal, hold in Phase I for continued monitoring from when last reversal dose was given for a minimum of 60 minutes or longer pending the nurse and/or physician discretion of patient condition before discharge to Phase II. Please call the Sedation Physician to re-evaluate and complete post-note for discharge to Phase II area. Do NOT discharge from procedure sedation or Phase 1 until post- sedation evaluation note is complete by procedure /sedation MD Sedation Discharge Instructions to be given to the patient at discharge to home.
--- NOTE | 2023-10-31 15:09 | Pre Anesthesia Assessment ---
Date of Service October 31, 2023 Pre Sedation Assessment Vital Signs Temp Pulse Pulse Resp BP BP Pulse Ox 10/31/23 15:00 98.2 F 53 L 18 103/75 97 10/31/23 12:53 98.5 F 52 L 16 108/74 97 10/31/23 12:36 61 10/31/23 12:00 53 L 16 100/71 96 10/31/23 10:30 54 L 17 116/76 94 10/31/23 09:30 59 L 14 106/76 95 10/31/23 08:51 56 L 13 115/81 96 10/31/23 08:40 52 L 18 95 10/31/23 08:40 95 10/31/23 08:36 56 L 10/31/23 08:25 97.7 F 57 L 20 123/78 95 O2 Del Method 10/31/23 15:00 Room Air 10/31/23 12:53 Room Air 10/31/23 12:36 10/31/23 12:00 Room Air 10/31/23 10:30 10/31/23 09:30 10/31/23 08:51 10/31/23 08:40 Room Air 10/31/23 08:40 Room Air 10/31/23 08:36 10/31/23 08:25 Room Air Cardiovascular + regular rate Respiratory + respiratory effort normal Pre-Sedation Airway Assessment Smoking Status: Never smoker Hx Sleep Apnea: No Hx Difficult Intubation: No Short, Thick Neck: No Thyromental Distance: < 3.5 Finger Breadths Oral Cavity: + Dental Abnormalities Mallampati Class: III ASA: ASA3 Procedure Planning Contraindications for Sedation: none Current Medications Reviewed: Yes Notes The planned sedation has been discussed with the patient. Informed Consent was obtained. I have identified the patient, determined the appropriateness of sedation and have assessed the patient immediately prior to the procedure. All medicine(s) and interventions are by my order.
[2023-10-31] MEDS: CLOPIDOGREL BISULFATE 300 MG TAB ONE (15:25)
[2023-10-31] MEDS ORDERED: ONDANSETRON INJ 2 MG/ML 2 ML VIAL IV PRN (15:32)
--- NOTE | 2023-10-31 15:32 | Cardiac Catheterization ---
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 Cardiac Status Clinical evaluation leading to the procedure CAD Presenation: Unstable angina Anginal Classification: CCS IV Diagnostic Physicians Name: Kaedn Todd MD Closure Device Recommendations: PCI without planned CABG Cardiac Cath Procedure Full Procedure Date October 31, 2023 Pre-Procedure Diagnosis Pre-Procedure Diagnosis: Angina AUC Score AUC Score: 07 Post-Procedure Diagnosis Post-Procedure Diagnosis: Severe CAD, Successful PCI and Normal Intracardiac Pressures Procedure(s) Performed Procedure(s) Performed: Coronary Angiography, Left Heart Cath, Drug Eluting Stent, IVUS, Fractional Flow Schuyler and Procedure (Intravascular lithotripsy) Coloring Room Worker Kaden Todd MD House Mover Helper(s) Showers Estimated Blood Loss Estimated Blood Loss: 20 Medication(s) Medication(s): Fentanyl, Heparin, Lidocaine 1%, Nicardipine, Nitroglycerin and Versed Summary of Findings Indication: Multivessel CAD with recent stenting of OM and LAD. Recurrent chest pain concerning for unstable angina. Access: 6 Fr slender right radial artery Catheters: [place], JR4 guide Findings: LM -normal caliber, luminal irregularities. LAD -calcified, medium caliber, 40-50% proximal stenosis, 40-50% mid stenosis. Latemid stent after D2 without significant disease. Distal LAD without disease and extends to apex. D1, D2 without significant disease. Ramussmall to medium caliber, proximal luminal irregularities, 30% mid stenosis with myocardial bridging. Circumflex -medium caliber vessel, 30% ostial stenosis. Mid segment stents into OM 2 widely patent. RCA -dominant, large caliber, calcified 70% mid RCA stenosis. Distal vessel without significant disease. Large RPDA and PLB's without disease. LVEDP -5 Coronary arteries appeared largely unchanged from final images from cardiac catheterization on 08/25/2023. Noted again to have moderate to severe mid RCA disease. Decision to further evaluate with FFR. FFR procedure: -RCA cannulated with JR4 guide -BMW wire placed into distal RCA -ACIST Catheter placed across stenosis -Pd/Pa 0.98 -FFR 0.69 -Decision to proceed with PCI -- PCI of mid RCA-- Antithrombotic therapy: Heparin, clopidogrel Procedure: Pre-procedure flow JANIS 3 Mid RCA lesion predilated with 3.0 compliant balloon Residual mid RCA stenosis despite inflation to high atmospheres. [employer] IVUS catheter placed to latemid RCA segment and pullback revealed severe concentric calcification with severe residual stenosis (>70%) Due recalcitrant calcium mid RCA further dilated with intravascular lithotripsy (shockwave 3.5 mm, 30 pulses) With the aid of a guide liner dilated lesion stented with 4.0 x 26 mm Vivian drug- eluting stent Stent post-dilated with 4.5 noncompliant balloon IC vasodilators administered for spasm Post procedure JANIS 3 flow, stent well expanded with minimal residual stenosis and no apparent cardiac complications. Arterial Closure: TR band Summary: 1. Stable multi-vessel coronary artery disease -70% mid RCA (positive by FFR 0.69). 40 to 50% proximal, mid LAD. Latemid LAD stent widely patent 30% ostial circumflex. Mid circumflex into OM 2 stents widely patent 2. Normal intracardiac filling pressure 3. Successful PCI of mid RCA with intravascular lithotripsy and single drug- eluting stent (4.0 x 26 mm Pranay; postdilated with 4.5 NC). 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 Any exceptions are noted below. [facility] Card Cath Procedure Codes Cardiac Catheterization Procedure 1: Cardiovascular Cath Procedures: 62252 Coronaries and LHC (+/-LV) Procedure 2: Cardiovascular Cath Procedures: 81768 (Doppler) Pressure Wire Therapeutic Services & Ancillary Procedure 1: Cardiovascular Tx and Anc Procedures: 81072 IV Ultrasound (Coronary or Graft) Moderate Sedation Procedure 1: Sedation/Anesthesia: 66661 Mod Sedation by the same physician;Init15 Min Child Age 5 & Up Procedure 2: Sedation/Anesthesia: 57364 Mod Sedation by the same physician; Ea [id number] Minutes Stenting Procedure 1: Cardiovascular Stent Procedures: 53477 Perc transcatheter placement of intracoronary stent(s), with ang (Add CPT code 0715T for Percutaneous Doran sluminal coronary lithotripsy) PG Care Time/CCT Total # of Minutes Spent Total Time Spent with Patient: Total time spent is greater than 50% in coordination of care (as documented) at patient's floor/unit and/or counseling patient:
--- NOTE | 2023-10-31 15:42 | Electrocardiogram Report ---
Test Reason : Blood Pressure : / mmHG Vent. Rate : 054 BPM Atrial Rate : 054 BPM P-R Int : 186 ms QRS Dur : 104 ms QT Int : 434 ms P-R-T Axes : 043 053 076 degrees QTc Int : 411 ms Sinus bradycardia Otherwise normal ECG When compared with ECG of 26-AUG-2023 08:09, No significant change was found Confirmed by Tor Romeo ([id number]) on 10/31/2023 3:42:00 PM Referred By: Zacarias Grayson Confirmed By:Tor Romeo
[2023-10-31] MEDS ORDERED: ACETAMINOPHEN 325 MG TAB PO PRN (16:03)
[2023-10-31] MEDS ORDERED: NITROGLYCERIN SL 0.4 MG/TAB TAB SL PRN (16:03)
[2023-10-31] MEDS: LACTATED RINGER'S 1,000 ML IV SCH (16:33)
[2023-10-31] MEDS: IODIXANOL (VISIPAQUE) 320 MG/ML 100ML IV ONE (16:34)
[2023-10-31] MEDS: ACETAMINOPHEN 500 MG TAB PO PRN (16:36)
[2023-10-31] MEDS: TAMSULOSIN HCL 0.4 MG CAP PO SCH (20:42)
[2023-10-31] MEDS: FINASTERIDE 5 MG TAB PO SCH (20:43)
[2023-10-31] MEDS: METOPROLOL TARTRATE 25 MG TAB PO SCH (20:43)
[2023-11-01] MEDS: LEVOTHYROXINE SODIUM 75 MCG TABLET PO SCH (06:03)
[2023-11-01 06:57] LABS: Basophils # (auto) 0.03 K/uL (0.00-0.20); Basophils % (auto) 0.6 %; Eosinophils # (auto) 0.14 K/uL (0.00-0.50); Eosinophils % (auto) 2.8 %; Hematocrit (blood only) 43.1 % (42.0-52.0); Hemoglobin 14.8 g/dl (14.0-18.0); Immature Granulocytes # (auto) 0.01 K/uL (0.01-0.20); Immature Granulocytes % (auto) 0.2 %; Lymphocytes # (auto) 1.13 K/uL (1.20-3.40); Lymphocytes % (auto) 22.7 %; Mean Corpuscular Hemoglobin 30.1 pg (25.0-34.0); Mean Corpuscular Hgb Conc 34.3 g/dL (32.0-36.0); Mean Corpuscular Volume 87.8 fL (80.0-100.0); Mean Platelet Volume 11.6 fL (9.4-12.4); Monocytes # (auto) 0.31 K/uL (0.11-0.59); Monocytes % (auto) 6.2 %; Neutrophils # (auto) 3.35 K/uL (1.40-6.50); Neutrophils % (auto) 67.5 %; Platelet Count 141 K/uL (130-400); RDW Coefficient of Variation 12.3 % (11.5-14.5); RDW Standard Deviation 39.5 fL (36.4-46.3); Red Blood Count 4.91 M/uL (4.70-6.10); White Blood Count 4.97 K/ul (4.8-10.8)
[2023-11-01 07:16] LABS: BUN Creatinine Ratio 13.9 (10-20); Calcium 8.7 mg/dl (8.6-10.3); Creatinine Clr Calc Pharmacy 123.6 ml/min; Est GFR (African American) 119.7 ml/min; Est GFR (Non-African American) 103.2 ml/min; Potassium 4.1 mmol/L (3.5-5.1)
[2023-11-01 07:31] LABS: Thyroid Stimulating Hormone 3.497 uIu/ml (0.300-4.500)
--- NOTE | 2023-11-01 08:06 | Cardiology Progress Note ---
Date of Service November 01, 2023 Assessment & Plan (1) Unstable angina pectoris: (2) FH: premature coronary heart disease: Plan 53 yo man presented 2 months after LAD and Cx stents with unstable angina. Troponin levels normal. Echo without wall motion abnormalities, normal LVEF Cardiac cath revealed patent stents, 70% mid RCA stenosis, FFR positive 0.69. Underwent PCI intravascular lithotripsy and single drug-eluting stent (4.0 x 26 mm Pranay; postdilated with 4.5 NC). Plan: Repeat EKG ASA 81 mg daily, clopidogrel 75 mg daily, metoprolol tartrate 25 mg BID. Intolerant of rosuvastatin. Resume pravastatin 40 mg Recheck LDL As outpt: * Check Lp(a) * Check Apolipoprotein B * Patient will Likely need PCSK9 inhibitor If EKG looks good , OK for discharge. Sylvester Salcedo, DO Admission and Anticipated Discharge Date Admission Date: October 31, 2023 Subjective Pt seen in follow up. Feels well. No recurrent angina. Telemetry reveals SR in the 60s. Review of Systems Review of Systems: All systems reviewed & are unremarkable except as noted in HPI & below Physical Exam Constitutional: WD/WN, vitals as above Eyes: PERRL, conjunctivae normal, anicteric sclerae Respiratory: normal respiratory effort, lungs clear to auscultation Cardiovascular: RRR, no murmur, no edema Gastrointestinal (Abdomen): normal bowel sounds, soft, nontender, no hepatosplenomegaly R radial cath site is clean , dry, intact, no hematoma Neurologic: PERRL, EOMI, accommodation nl, no face palsy, no dysarthria Results & Data Vital Signs (Past 12 Hours) Vital Signs Temp Pulse Resp BP Pulse Ox O2 Del Method 11/01/23 07:34 36.7 C 68 18 128/78 95 Room Air 11/01/23 03:33 36.5 C 60 18 100/64 96 Room Air 10/31/23 22:53 36.7 C 62 18 103/61 96 Room Air 10/31/23 20:44 64 16 119/74 94 Room Air Laboratory Results Cardiac Enzymes 10/31/23 10/31/23 Range/Units 08:25 11:17 AST 22 (13-39) U/L Troponin I High Sens 2.5 < 2.3 (0-20) pg/ml Coagulation 10/31/23 Range/Units 08:25 PT 10.3 (9.0-12.0) Seconds APTT 30 (21-31) Seconds CBC 10/31/23 11/01/23 Range/Units 08:25 06:13 WBC 4.17 L 4.97 (4.8-10.8) K/ul RBC 5.33 4.91 (4.70-6.10) M/uL Hgb 15.8 14.8 (14.0-18.0) g/dl Hct 46.6 43.1 (42.0-52.0) % Plt Count 146 141 (130-400) K/uL Neut # (Auto) 2.17 3.35 (1.40-6.50) K/uL Lymph # (Auto) 1.56 1.13 L (1.20-3.40) K/uL Whiteside # (Auto) 0.30 0.31 (0.11-0.59) K/uL Eos # (Auto) 0.10 0.14 (0.00-0.50) K/uL Baso # (Auto) 0.04 0.03 (0.00-0.20) K/uL Comprehensive Metabolic Panel 10/31/23 11/01/23 Range/Units 08:25 06:13 Sodium 140 141 (136-145) mmol/L Potassium 4.0 4.1 (3.5-5.1) mmol/L Chloride 111 H 113 H (98-107) mmol/L Carbon Dioxide 23 25 (21-32) mmol/L BUN 13 11 (6-23) mg/dl Creatinine 0.82 0.79 (0.6-1.4) mg/dl Glucose 109 H 96 (70-99(Fasting)) mg/dl Calcium 9.1 8.7 (8.6-10.3) mg/dl AST 22 (13-39) U/L ALT 26 (7-52) U/L Alkaline Phosphatase 53 (34-104) U/L Total Protein 6.8 (6.0-8.3) gm/dl Albumin 4.4 (3.4-5.0) gm/dl Intake and Output 10/31/23 11/01/23 11/01/23 22:59 06:59 14:59 Intake Total 2064 400 / 2465 Balance 2064 400 / 2465 Intake: IV 1615 / 1615 Sodium Chloride 0.9% 1,000 ml @ 1615 / 1615 100 mls/hr IV .Q10H [facility] Rx#: [id number] Oral 450 / 850 400 / 850 Other: Weight 92.2 kg 92.2 kg Weight Measurement Method Built in Bedscale Standing Scale Diagnostic Findings Echo 10/31/23: mild concentric LVH normal wall motion LVEF 55-60% mild MR no pericardial effusion
[2023-11-01] MEDS: ASPIRIN 81 MG ECTAB PO SCH (08:40)
[2023-11-01] MEDS: CLOPIDOGREL BISULFATE 75 MG TAB PO SCH (08:40)
[2023-11-01] MEDS: CHOLECALCIFEROL 25 MCG (1000 UNITS) TAB PO SCH (08:41)
[2023-11-01] MEDS: PRAVASTATIN SOD 40 MG TAB PO ONE (08:41)
--- NOTE | 2023-11-01 08:52 | Communication Note ---
Date of Service: November 01, 2023 EKG performed and reviewed with stable findings. OK for discharge from cardiology standpoint. Already has outpatient follow up visit. Hold cardiac rehab for 2 weeks. Discussed by speaker phone with spouse. Sylvester Salcedo DO
[2023-11-01] MEDS ORDERED: ASPIRIN 81 MG ECTAB PO SCH (09:00)
[2023-11-01] MEDS ORDERED: CLOPIDOGREL BISULFATE 75 MG TAB PO SCH (09:00)
--- OUTSIDE RECORDS SUMMARY | 2023-11-01 09:09 | External Medical Summary | Summary of Care ---
Author Name Unknown Organization [facility] Address [address] [place] [address] Phone [phone] Care Team Providers Care Machine Stripper Name Role Phone Rencastillo Zacarias TOLBERT Primary Care Provider + [phone] Encounter Details Date Type Department Care Team (Late st Contact Info) Description 08/26/2023 Telephone Cardiology, [facility] [address] [place] [address] Moshe Osorio, DO [address] [place] [address] Allergies No known active allergiesdocumented as of this encounter (statuses as of 09/02/2023) Medications Medication Sig Dispensed Refills Start Date [...] day as needed for Anxiety. 0 Active [place]-3 Fish Oil 1000 MG Oral Capsule ([place]-3) Take 1 Capsule by mouth daily. 0 Active Rosuvastatin Calcium 20 MG Oral Tablet (Crestor) Take 1 Tablet by mouth in the morning. 34 Tablet 6 08/20/2023 Active Aspirin 81 MG Oral Tablet Delayed Release (Aspirin 81) Take 1 Tablet by mouth in the morning. 0 Active NATURAL SUPPLEMENT Medical marijuana 0 Active documented as of this encounter (statuses as of 09/02/2023) Active Problems No known active problems documented as of this encounter (statuses as of 09/02/2023) Social History Tobacco Use Types Packs/Day Years [...] Telephone Encounter - Paula Chowdary OSA - 09/02/2023 10:01 AM EDT Spoke with Pt, appt scheduled for 09/10. * Telephone Encounter - Paula Chowdary OSA - 08/27/2023 1:29 PM EDT Will schedule Pt for September 10 at 2:00 once the close in slot opens. * Telephone Encounter - Moshe Osorio DO - 08/26/2023 1:02 PM EDT Hospital discharge. Schedule cardiology follow up with me in 2 weeks. documented in this encounter Plan of Treatment Upcoming Encounters Date Type Department Care Team (Late st Contact Info) Description 09/11/2023 2:00 PM EDT Office Visit Cardiology, [facility] [address] [place] [address] Moshe Osorio DO [address] [place] [address] Health Maintenance Due Date Last Done Comments Lipid Panel 1971 Depression Screening 1983 HIV Screening 10/23/1986 Hepatitis C Screening 10/23/1989 TSH 10/23/1989 DTaP,Tdap,and Td Vaccines (1 - Tdap) 10/23/1990 Hepatitis B (1 of 3 - 19+ 3-dose series) 10/23/1990 Cologuard 10/23/2016 Fecal Occult Blood Test 10/23/2016 Sigmoidoscopy 10/23/2016 Zoster Vaccines (1 of 2) 10/23/2021 COVID-19 Vaccine (4 - 2022- season) 2023 05/09/2021, 10/11/2020, 09/13/2020 Colonoscopy 02/20/2030 [...] filedocumented as of this encounter Care Teams Machine Stripper Relationship Specialty Start Date End Date Zacarias Grayson CRNP [address] [place] [address] PCP - General Nurse Practitioner 07/04/23 documented as of this encounter
--- OUTSIDE RECORDS SUMMARY | 2023-11-01 09:09 | External Medical Summary | Summary of Care ---
Author Name Unknown Organization [facility] Address [address] [address] Phone [phone] Care Team Providers Care Application Support Administrator Name Role Phone Rencastillo Zacarias TOLBERT Primary Care Provider + [phone] Reason for Referral * Evaluate & Treat - Unlimited Visits (Within 10 days (routine)) - Pending Review Specialty Diagnoses / Procedures Referred By Edith perkins Referred To Contact CARDIAC REHAB / Cardiology Diagnoses Dyslipidemia, goal LDL below 70 Moshe Osorio DO [address] [place] [address] Referral ID Status Reason Start Date Expiration Date Visits Requested Visits Authorized [id number] Pending Review Specialty Services Required 09/11/[phone] Question Answer Referral Priority Within 10 days (routine) Where should this appointment be scheduled? [facility] Modality No Preference, either is clinically appropriate Identify Cardiac Risk Low to Moderate Risk Reason for Visit * Reason Comments Follow Up Encounter Details Date Type Department Care Team (Latest Contact Info) Description 09/11/2023 2:00 PM EDT Office Visit Cardiology, [facility] [address] [place] [address] Moshe Osorio DO [address] [place] [address] Hospital discharge follow-up*; History of placement of stent in LAD coronary artery; Dyslipidemia, goal LDL below 70; Myalgia due to statin; Coronary artery calcification Allergies Active Allergy Reactions Criticality Noted Date Comments Ticagrelor 09/11/2023 SOB documented as of this encounter (statuses as of 09/11/2023) Medications Medication Sig Dispensed Refills Start Date [...] day as needed for Anxiety. 0 Active Rosuvastatin Calcium 20 MG Oral Tablet (Crestor) Take 1 Tablet by mouth in the morning. 34 Tablet 6 08/20/2023 Active Aspirin 81 MG Oral Tablet Delayed Release (Aspirin 81) Take 1 Tablet by mouth in the morning. 0 Active NATURAL SUPPLEMENT Medical marijuana 0 Active Clopidogrel Bisulfate 75 MG Oral Tablet (pLAVix) Start with 8 tablets 12 hours after your last dose of Brilinta. Then 75 mg by mouth daily 98 Tablet 3 08/28/2023 Active Co Q 10 10 MG Oral Capsule Take by mouth. 0 Active Metoprolol Succinate ER 25 MG Oral Tablet Extended Release 24 Hour (Toprol XL) Take 1 Tablet by mouth in the morning. 34 Tablet 6 09/11/2023 Active Alcova-3 Fish Oil 1000 MG Oral Capsule (Alcova-3) Take 1 Capsule by mouth daily. 0 09/11/2023 Discontinued documented as of this encounter (statuses as of 09/11/2023) Active Problems No known active problems documented as of this encounter (statuses as of 09/11/2023) Social History Tobacco Use Types Packs/Day Years [...] Sign Reading Time Taken Comments Blood Pressure 130/80 09/11/2023 2:04 PM EDT Pulse 66 09/11/2023 2:04 PM EDT Temperature - - Respiratory Rate - - Oxygen Saturation 97% 09/11/2023 2:04 PM EDT Inhaled Oxygen Concentration - - Weight 95.3 kg (210 lb) 09/11/2023 2:04 PM EDT Height - - Body Mass Index - - documented in this encounter Progress Notes * Moshe Osorio DO - 09/11/2023 1:58 PM EDT SUBJECTIVE: Patient returns today for follow up of exertional angina, coronary disease status post drug-eluting stent implantation to obtuse marginal branch of left circumflex and distal left anterior descending artery. Patient underwent exercise stress testing August 25, 2023 with reproduction of anginal symptoms and ECG changes. The echocardiographic images failed to identify ischemic wall motion abnormality. Patient was referred to [facility] ER due to ongoing angina. He was taken to the cardiac catheterization lab day with evidence of multivessel coronary disease as described below. Patient contacted office August 28, 2023 with concerns regarding shortness of breath. Symptoms likely result of treatment with Brilinta. Brilinta subsequently discontinued and patient loaded with clopidogrel. Today, notes discomfort involving his posterior cervical muscles, and bilateral shoulders. Symptomsbegan shortly after titrating rosuvastatin to 20 mg daily. Denies exertional chest pain or burning (anginal equivalent noted during stress testing) or unusual shortness of breath. Walking for exercise without symptoms. Tolerating other medications listed below. Exercise stress echo report August 25, 2023: Stress test findings suggest coronary artery disease [...] millimeter horizontal and downsloping ST segment depression inthe inferior and lateral leads. The patient described [...] disease was observed on the resting study. Cardiac catheterization report August 25, 2023: Dominant: Right Left Main (% Stenosis): Normal LAD (% Stenosis): Proximal (40 to 50%), Mid (40 to 50%) and Distal (60 to 70%) D1 (% Stenosis): Normal D2 (% Stenosis): Normal Circumflex (% Stenosis): Ostial (20%) OM1 (% Stenosis): Mid (80 to 90% plus thrombus) L PL1 (% Stenosis): Normal RCA (% Stenosis): Proximal (Mild) and Mid (50 to 70%) R PDA (% Stenosis): Normal R PL1 (% Stenosis): Normal Ramus (% Stenosis): Normal (Diffuse less than 20%) Summary: 1. Severe multivessel coronary artery disease including circumflex OM with angiographically borderline disease in the LAD and moderate to severe disease in the RCA as described. 2. IFR analysis of LAD demonstrates that this is hemodynamically significant. 3. Successful PCI of the circumflex OM as well as the LAD. 4. Dual antiplatelet therapy with aspirin and Brilinta for 1 to 2 years. 5. Guideline directed medical therapy for secondary prevention of coronary disease to include; low-dose aspirin, high intensity statin therapy, beta- yudith, plus or minus JAQUAN inhibitor/ARB. 6. Suggest lifestyle modification including cardiac prudent diet, regular cardiovascular exercise, and would also benefit from formal cardiac rehab. 7. If patient has recurrent symptoms then further evaluation of the RCA stenosis would be warrantedeither invasively or noninvasively. ROS: All others negative other than those noted in the HPI. Social History Tobacco Use Smoking status: Never Smokeless tobacco: Never Substance Use Topics Alcohol use: Not Currently Drug use: Yes Types: Marijuana Review of patient's allergies indicates: No Known [...] Take 1 Tablet by mouth at bedtime. Lutein 20 MG Oral Tablet Take by mouth daily. Propranolol HCl 10 MG Oral Tablet (Inderal) Take 1 Tablet by mouth 2 times a day as needed for Anxiety. Alcova-3 Fish Oil 1000 MG Oral Capsule (Alcova-3) Take 1 Capsule by mouth daily. Rosuvastatin Calcium 20 MG Oral Tablet (Crestor) Take 1 Tablet by mouth in the morning. 34 Tablet 6 Aspirin 81 MG Oral Tablet Delayed Release (Aspirin 81) Take 1 Tablet by mouth in the morning. NATURAL SUPPLEMENT Medical marijuana Clopidogrel Bisulfate 75 MG Oral Tablet (pLAVix) Start with 8 tablets 12 hours after your last doseof Brilinta. Then 75 mg by mouth daily 98 Tablet 3 No current facility-administered medications for this visit. OBJECTIVE/PHYSICAL EXAMINATION: BP 130/80 | Pulse 66 | Wt 95.3 kg (210 lb) | SpO2 97% General: NAD, AAO x3, well nourished. HEENT: [...] =2/4, posterior tibial=2/4. Neuro: No focal deficits. ASSESSMENT: 1. 52-year-old male presents for follow-up of abnormal stress testing, and exertional anginal symptoms s/p cardiac catheterization demonstrating multivessel coronary disease. Patient treated with drug-eluting stent implantation to obtuse marginal and distal LAD. Moderate mid RCA disease managed medically. -stable without recurrent angina 2. Dyslipidemia goal LDL less than 70 mg/dL -myalgia reported with titration of rosuvastatin to 20 mg, previously tolerated 10 mg daily 3. Intolerance to Brilinta (shortness of breath) 4. Post herpetic neuralgia - resolve PLAN: Lipid panel with direct ldl if tg is high Cardiac rehab referral op Reduce Crestor to 10 mg daily. Patient will contact me with an update on symptoms in approximately 7 to 10 days. Consider addition of Zetia and/or transition to alternative statin therapy pending review of repeat fasting lipid panel. Also reviewed potential indication for PCSK9 inhibitor if patientunable to tolerate statin therapy. Discussed importance of continuing dual antiplatelet therapy for a minimum of 6 months post percutaneous intervention. Currently tolerating low-dose metoprolol tartrate 12.5 mg twice daily. Will transition to metoprolol succinate 25 mg daily. Patient agreeable to cardiac rehab. Follow Up: Return in about 3 months (around 12/11/2023). I spent a total of 40-54 minutes (exact time 40 mins) on the date of service in preparation, delivery, and documentation of the care provided to Tremaine Lindsay excluding any time spent in the performanceof separately billed services. Moshe Osorio DO, [facility] Associate Cardiology - [facility] documented in this encounter Nursing Notes * Joelle Aldridge CMA - 09/11/2023 2:03 PM EDT Examination Room: 11 Name: Tremaine Lindsay Date of : (1970) Reason for Visit:f/u from cath Interim Hospitalization(s): cath 08/24 Problems/Concerns: muscle pain in shoulders and arms Chest Pain/SOB: denied My [facility] is a way you can talk to your provider online through e-mail. Would you like to sign up? I can activate it for you? ALREADY ACTIVE Patient was instructed to not [...] Care Team (Late st Contact Info) Description 12/22/2023 1:30 PM EDT Office Visit Cardiology, [facility] [address] [place] [address] Moshe Osorio DO [address] [place] [address] Scheduled Orders Name Type Priority Associated Diagnoses Orde r Schedule LIPID PANEL WITH DIRECT LDL IF TG IS HIGH Lab Routine History of placement of stent in LAD coronary artery Dyslipidemia, goal LDL below 70 Expected: 11/21/2023 (Approximate), Expires: 09/10/2024 Scheduled Referrals Name Type Priority Associated Diagnoses Orde r Schedule CARDIAC REHAB REFERRAL OP Referral Within 10 days (routine) Dyslipidemia, goal LDL below 70 Ordered: 09/11/2023 Health Maintenance Due Date Last Done Comments [...] as of this encounter Visit Diagnoses Diagnosis Hospital discharge follow-up- Primary Other follow-up examination History of placement of stent in LAD coronary artery Postsurgical percutaneous transluminal coronary angioplasty status Dyslipidemia, goal LDL below 70 Other and unspecified hyperlipidemia Myalgia due to statin Coronary artery calcification Coronary atherosclerosis of unspecified type of vessel, ramona or graft documented in this encounter Care Teams Application Support Administrator Relationship Specialty Start Date End Date Zacarias Grayson CRNP [address] [place] [address] PCP - General Nurse Practitioner 07/04/23 documented as of this encounter"
--- OUTSIDE RECORDS SUMMARY | 2023-11-01 09:09 | External Medical Summary | Summary of Care ---
Author Name Unknown Organization [facility] Address [address] [facility] [place] [address] Phone [phone] Care Team Providers Care Picker Feeder Name Role Phone Zacarias Grayson Javy TOLBERT Primary Care Provider + [phone] Reason for Visit * Reason Comments Dosage Adjustment In Person (Anticoag Cl inic) Hyperlipidemia * Evaluate & Treat - Unlimited Visits (Within 30 days (routine)) - Pending Review Specialty Diagnoses / Procedures Referred By Contac t Referred To Contact Pharmacist / Pharmacy Diagnoses Dyslipidemia, goal LDL below 70 Moshe Osorio DO [address] [place] [address] Referral ID Status Reason Start Date Expiration Date Visits Requested Visits Authorized [id number] Pending Review Specialty Services Required 09/25/2023 99 99 Encounter Details Date Type Department Care Team (Late st Contact Info) Description 09/26/2023 10:40 AM EDT Office Visit Cardiology, [facility] [address] [place] [address] [facility] [address] [place] [address] Dyslipidemia, goal LDL below 70* Allergies Active Allergy Reactions Criticality Noted Date Comments Ticagrelor 09/11/2023 SOB documented as of this encounter (statuses as of 09/26/2023) Medications Medication Sig Dispensed Refills Start Date [...] day as needed for Anxiety. 0 Active Aspirin 81 MG Oral Tablet Delayed Release (Aspirin 81) Take 1 Tablet by mouth in the morning. 0 Active NATURAL SUPPLEMENT Medical marijuana 0 Active Clopidogrel Bisulfate 75 MG Oral Tablet (pLAVix) Start with 8 tablets 12 hours after your last dose of Brilinta. Then 75 mg by mouth daily 98 Tablet 3 08/28/2023 Active Metoprolol Succinate ER 25 MG Oral Tablet Extended Release 24 Hour (Toprol XL) Take 1 Tablet by mouth in the morning. 34 Tablet 6 09/11/2023 Active Pravastatin Sodium 40 MG Oral Tablet (Pravachol) Take 1 Tablet by mouth every night at bedtime. 30 Tablet 11 09/26/2023 Active Rosuvastatin Calcium 20 MG Oral Tablet (Crestor) Take 1 Tablet by mouth in the morning. 34 Tablet 6 08/20/2023 09/26/2023 Discontinued (Medication/ Dose Changed) Co Q 10 10 MG Oral Capsule Take by mouth. 0 09/26/2023 Disconti nued (Patient preference/d iscontinuati on) documented as of this encounter (statuses as of 09/26/2023) Active Problems No known active problems documented as of this encounter (statuses as of 09/26/2023) Social History Tobacco Use Types Packs/Day Years [...] on file documented as of this encounter Patient Instructions * Patient Instructions* Berna Mesa, [facility] - 09/26/2023 10:42 AM EDT START Pravastatin 40 mg daily Fasting Lab work prior to December [phone] Berna Mesa Pharm D Clinical [facility] Pharmacist Cardiology 09/26/2023,10:46 AM documented in this encounter Progress Notes * Berna Mesa RPh - 09/26/2023 10:13 AM EDT Images from the original note were not included. PHARMACY CHRONIC DISEASE MANAGEMENT - HYPERLIPIDEMIA HPI: Tremaine Lindsay is a 52 year old year old male. Referred for HLD management by Dr Osorio. Previous medication use: statins History of statin intolerance: yes Statin names, doses, frequency tried and outcome: Crestor 10 mg daily-myalgia Crestor 20 mg daily-myalgia Any contraindications to HLD medications: none Current medications which can be contributing: beta blockers Family history of HLD: yes; brother and dad (heart attack at age of 40) Current genetic disorder diagnosis: no Smoking history: Denies Alcohol use: Denies Diagnosis of diabetes: no Clinical ASCVD/Risk Score: The ASCVD Risk score (Irving DK, et al., 2019) failed to calculate for the following reasons: Cannot find a previous HDL lab Cannot find a previous total cholesterol lab Diet review: not reviewed Exercise review: not reviewed There is no problem list on file for this patient. Review of patient's allergies indicates: Allergen Reactions Brilinta [Ticagrelor] SOB Objective: 03/24/24: Total 105 LDL 54 HDL 37 TG 72 Current Cardiac Medication(s): Metoprolol Er 25 mg daily Propranolol 10 mg BID as needed Plavix 75 mg daily ASA 81 mg daily Crestor 20 mg daily CoQ 10 daily Assessment & Plan: Uncontrolled HLD -Target LDL <70 -start pravastatin 40 mg daily -stop crestor -lipid panel piror to next appt Reviewed most recent lipid panel results with patient; discussed each component of lipid panel and optimal levels of such components (i.e. TG,HDL-chol,LDL-chol). Lengthy discussion with patient regarding diet. Counseled patient to reduce dietary intake of fats,especially trans-fat. Counseled patient to limit dietary cholesterol intake to less than 200mg daily. Counseled patient to consume a dietary pattern that emphasized intake of vegetables, fruits, and whole-grains; includes low-fat dairy products, poultry, fish, legumes, non-tropical vegetable oils, and nuts; and limit intake of sweets, sugar-sweetened beverages, cheeses, fried foods and red meats. Counseled patient to engage in aerobic physical activity at least 3 to 4 sessions weekly, lasting on average 40 minutes per session and involving [id number] intensity physical activity. Regarding mediations, pt currently on crestor 10 mg daily but having should pain/myalgia. Could nottolerate 20 mg either. Has not tried any other cholesterol medications, will try pravastatin 40 mg daily. Pt to let us know if he does not tolerate. Explained importance of trying a few statins before moving on to other classes of cholesterol medications. Of note, his LDL was well controlled on crestor 10 mg daily Reports CoQ 10 did not help with myalgia so removed from med list 2. CAD -s/p MUNA 08/25/23 -SOB with Shamir Medication changes: Metoprolol Er 25 mg daily Propranolol 10 mg BID as needed Plavix 75 mg daily ASA 81 mg daily STOP Crestor 20 mg daily STOP CoQ 10 daily START Pravastatin 40 mg daily Labs Due: Lipid panel 3 months (ordered) Follow up: 3 months Berna Mesa RPh Clinical Pharmacist 10:13 AM, 09/26/23 documented in this encounter Plan of Treatment Upcoming Encounters Date Type Department Care Team (Late st Contact Info) Description 12/22/2023 1:30 PM EDT Office Visit Cardiology, [facility] [address] [place] [address] Moshe Osorio, [address] [place] [address] 12/26/2023 9:00 AM EDT Telemedicine Cardiology, [facility] [address] [place] [address] [facility] Cardiology [facility] [address] [place] [address] Scheduled Orders Name Type Priority Associated Diagnoses Orde r Schedule 25-HYDROXY VITAMIN D Lab Routine Dyslipidemia, goal LDL below 70 Expected: 12/26/2023, Expires: 09/25/2024 LIPID PANEL WITH DIRECT LDL IF TG IS HIGH Lab Routine Dyslipidemia, goal LDL below 70 Expected: 12/26/2023, Expires: 09/25/2024 Health Maintenance Due Date Last Done Comments Lipid Panel 1971 Depression Screening 1983 HIV Screening 10/23/1986 Hepatitis C Screening 10/23/1989 TSH 10/23/1989 DTaP,Tdap,and Td Vaccines (1 - Tdap) 10/23/1990 Hepatitis B (1 of 3 - 19+ 3-dose series) 10/23/1990 Cologuard 10/23/2016 Fecal Occult Blood Test 10/23/2016 Sigmoidoscopy 10/23/2016 Zoster Vaccines (1 of 2) 10/23/2021 COVID-19 Vaccine (4 - season) 2023 05/09/2021, 10/11/2020, 09/13/2020 Colonoscopy 02/20/2030 [...] as of this encounter Visit Diagnoses Diagnosis Dyslipidemia, goal LDL below 70- Primary Other and unspecified hyperlipidemia documented in this encounter Care Teams Picker Feeder Relationship Specialty Start Date End Date Zacarias Grayson CRNP [address] [place] [address] PCP - General Nurse Practitioner 07/04/23 documented as of this encounter
[2023-11-01 09:11] LABS: Chol HDL Ratio 4.4 (0-5)
--- NOTE | 2023-11-01 09:19 | Discharge Summary ---
Date of Service November 01, 2023 Admission HPI Per Admitting Provider Tremaine is a 53-year-old male with a past medical history of multivessel CAD with PCI last cath 08/25/2023 during which she had PCI to OM and LAD follows with [facility] cardiology, hypothyroidism, dyslipidemia who presents to the ER with recurrent intermittent chest pain which began 1 day ago, who had 4/10 pain on arrival to the ER with improvement to 2/10 following nitro. Baseline EKG normal sinus rhythm Pain recurrent with exertion, and in ER recurrent at rest inbetween nitro. Comfortable following nitro paste administration. Seen by cardiology, pt to be admitted to medicine and have a cath Seen at the bedside. REports yesterday around noon was working on the computer when he had sudden onset of chest pain the front center/off to the L side of his chest which was ~4-5/10 at its worst. Waxed and waned down to around a 2 through the evening, was not pain free prior to bed. 2/10 when he went to bed. Walking around did seem in increase the pain slightly, did not resolve at rest. Woke up with 2-4/10 pain today. Went to cardiac rehab, and was recommended to come to the ER for further evaluation. No shortness of breath with pain. 'I havent been doing anything to be short of breath, but nothing has come on on its down.' Endorses some sweats this morning which have resolved NO nausea, vomting, stomach pain, diarrhea, or constipation. Did nto attempt any tx yesterday Today feels the nitro did help, and at time of bedside assessment reports he has become pain free since the nitro paste was applied. NO cold/flu like sx, no dysuria, no abdominal pain He did take his medications this morning including ASA/plaavix. Has not missed any doses No orthopnea No leg swelling Has not pravastatin. 'I have been on rosuvastatin, that didn't agree with me and I felt terrible. Muscle aches and felt like someone was sitting on my shoudlers. After they took me off I felt better than I had in a long time. 'Swithed to pravastatin, but has been reticent to take it due to prior muscle aches. Did not take any doses, 'just a mental block at this point'. No tobacco use No alcohol use Seasonal allergies dyspnea to Brilinta, otherwise denies medical allergies Medical History: Reviewed Medications: Reviewed Surgical History: Reviewed Family history: Reviewed Code Status: Full Code Admission Exam Per Admitting Provider General: A&Ox3. NAD. Cooperative. HEENT: Atraumatic, normocephalic. Vision/hearing intact Pulm: CTAB A&P. -wheezes, -rales, -rhonchi. Symmetrical chest rise. No increased work of breathing. No respiratory distress. Cardiac: Bradycardic, no murmurs/rubs. Radial pulses intact and symmetrical. No JVD. No lower extremity edema Abdominal: Nontender, nondistended, soft. BS present. Principal Diagnosis Unstable angina Discharge Exam Constitutional WD/WN, vitals as above Respiratory normal respiratory effort, lungs clear to auscultation Cardiovascular RRR, no murmur, no edema Skin no rashes, warm and dry Psychiatric A+Ox3, euthymic affect Discharge Data Allergies Allergy/AdvReac Type Severity Reaction Status Date / Time ticagrelor [From Brilinta] Allergy shortness Verified 10/31/23 12:56 of breath Consultations 10/31/23 16:03 Consult Cardiology Routine Procedures Performed Operation Date: 10/31/23 13:00 Actual Procedures p Cath, Left with Cors and Vent(Right) - Kaden Todd MD p Drug Eluting Stent SGl Vessel - Kaden Todd MD s IVUS Coronary Single Vessel - Kaden Todd MD s Fraction Flow Parkman SGL Ves - Kaden Todd MD s Perc Doran Coronary Lithotripsy - Kaden Todd MD Ordered Studies 10/31/23 13:06 CL Cath Imgs for PACS use only Stat 10/31/23 15:02 CL IVUS Coronary Single Vessel Stat Hospital Course (1) Unstable angina pectoris: (2) FH: premature coronary heart disease: Plan 53 yo man presented 2 months after LAD and Cx stents with unstable angina. Unstable Angina: Troponin levels normal, unremarkable EKG on admission, improvement in chest pain with nitro Echo without wall motion abnormalities, normal LVEF Cardiac cath revealed patent stents, 70% mid RCA stenosis s/p PCI intravascular lithotripsy and single drug-eluting stent Continue DAPT for minimum 6 months LDL 103 H/o Rosuvastatin intolerance, resume Pravastatin 40mg daily Consider as outpatient: * Check Lp(a) * Check Apolipoprotein B * Patient will Likely need PCSK9 inhibitor Continue Metoprolol Hold cardiac rehab x2 weeks Chronic, Stable Conditions: LAWANDA: Continue CPAP HS Hypothyroidism: Continue Levothyroxine BPH: Continue Finasteride, Alfuzosin Total Time Total Time Spent Total Time Spent (In Minutes): <30 Discharge Plan Discharge Items Patient Disposition: Home - Self-Care Reason For Visit: CHEST PAIN Discharge Diagnosis: CP, Unstable Angina Activity: Per Instructions section Non-emergency contact: Primary Care Provider and [place] Call non-emergency contact if: you have any medication questions and your symptoms worsen Follow-up/Referrals: Zacarias Grayson III, CRNP [Primary Care Provider] - 11/12/23 9:20 am Diet: Heart Healthy Key Attending Provider Instructions: You were admitted to the hospital with unstable angina and had a coronary stent placed. Upon discharge, please continue to take your Aspirin and Plavix daily - this will need to be continued for at least 6 months. In addition, we have sent a prescription for Pravastatin to your pharmacy - please take this once daily. Otherwise, please continue to take your other medications as previously di rected. A discharge summary will be sent to your primary care physician to ensure continuity of care. Please bring this discharge summary with you to your next office appointment so that your provider can review it at that time. Medications: Your medication list has been reviewed and reconciled upon discharge to ensure accuracy and continuity of care. An updated list of all your medications is included with your hospital discharge paperwork. Please review this list closely and make note of any changes to your medications. Follow up appointments: - Make a follow up appointment with your PCP within the next week. It is very important that you follow up with them shortly after discharge from the hospital. - Keep all of your follow up appointments as already scheduled. If you cannot make an appointment, notify your provider. CONTACT YOUR PRIMARY CARE PROVIDER if you experience any of the following: - Difficulty following your treatment plan - Difficulty taking any of your medications CALL 911 OR GO TO THE EMERGENCY DEPARTMENT if you experience any of the following: - Sudden, severe abdominal pain or nausea/vomiting - Severe chest pain or chest pain that radiates to your jaw or arm - Sudden, severe shortness of breath or difficulty breathing [facility] Provider Instructions: ACTIVITY RECOMMENDATIONS: It is common to feel weak and fatigue for a few days. * Do not drive or operate any motorized equipment for the next three days. * Limit stair usage (2 or 3 trips a day only) for the next three days. * Do not lift anything heavier than 10 pounds for the next three days. * Do not engage in vigorous exercise or any sports for the next five days. * You may shower the day after your procedure, but do not immerse the area for three days. Cleanse the site gently with soap and water. SPECIAL CARE INSTRUCTIONS: * You may replace the pressure dressing or band-aid the morning after the procedure. * After your procedure, it is normal to have a small bruise or small lump at the site. Examine your site daily for any change in the bruise or lump, redness, swelling, drainage or numbness. Notify your doctor if any change. BLEEDING: * If there is a small amount of bleeding at the site, lie down and apply firm pressure with a clean cloth for ten minutes. When the bleeding stops, lie quietly keeping the procedure limb straight for six hours. Notify your doctor as soon as possible. * If the bleeding does not stop after ten minutes or if there is a large amount of bleeding or spurting, call 911 immediately. Continue to lie down and hold firm pressure until help arrives. SKIN IRRITATION: * You may experience some redness and/or swelling in the area where radiation was administered. If any skin irritation occurs, please contact your family physician. FOLLOW UP VISIT: Keep any scheduled doctor appointments. Pending Studies at Discharge: No Stand-Alone Forms: [facility], Smoking Cessation Medications and DC Order Prescriptions: New pravastatin 40 mg Tablet 40 mg PO DAILY@1700 30 Days Qty: 30 1RF Continued levothyroxine 75 mcg capsule 75 mcg PO QAM Qty: 90 3RF finasteride 5 mg tablet 5 mg PO HS Qty: 90 3RF alfuzosin [Uroxatral] 10 mg tablet extended release 24 hr 10 mg PO HS Qty: 90 3RF Rx Instructions: administer after the same meal each day cholecalciferol (vitamin D3) 50 mcg (2,000 unit) capsule 50 mcg PO QAM lutein 20 mg capsule 20 mg PO QAM Rx Instructions: give with meal/snack Medical Marijuana 10 mg PO UD PRN (Reason: Pain/stress) Patient Comments: uses oils-uses every evening also uses vape aspirin 81 mg Tablet,Delayed Release (Dr/Ec) 81 mg PO QAM Qty: 0 0RF metoprolol tartrate 25 mg Tablet 25 mg PO BID Qty: 60 0RF nitroglycerin 0.4 mg tablet, sublingual 0.4 mg sublingual Q5M PRN (Reason: chest pain) Qty: 25 0RF clopidogrel [Plavix] 75 mg Tablet 75 mg PO DAILY Discharge Orders: Discharge Order (Routine); Ordered 11/01/23 Ordered By: Mathew Coburn Admission Data Admit Date/Time: 10/31/23 12:36 Attending Provider: Kendall Arciniega Admit Provider: Keagan Owens Primary Care Provider: Zacarias Grayson III Other Providers: Darrion Alfaro Other Interventions: Discharge Summary Assessment (RN) Last Done: 11/01/23 10:13 Supervising Physician Co-Signing Physician Notes I personally examined the patient and verified all peña points of history and exam, discussed case, and agree with decision making with Dr Coburn feels good, feels up to going home. No new complaints. Extensive discussion on med management and lifestyle change. Patient and spouse expressed understanding. Vitals noted, in general he is awake and alert pleasant no distress. HEENT normocephalic atraumatic mucous membranes moist. Breathing unlabored no accessory muscle use good effort. Skin shows no rashes no pallor or icterus. Neuro without focal deficits. Coronary artery disease/anginanow status post cath and stenting of RCAappears stable for home. Discussed med management and lifestyle change. Outpatient follow-up. Depending on his blood pressures, primary channel specialist/PCP can consider addition of JAQUAN inhibitor down the road. Resident Activity Tracking Resident Involvement: Resident Care Provided Care Provided: Adult Hospital Medicine
--- NOTE | 2023-11-01 11:35 | Electrocardiogram Report ---
Test Reason : Blood Pressure : / mmHG Vent. Rate : 068 BPM Atrial Rate : 068 BPM P-R Int : 152 ms QRS Dur : 096 ms QT Int : 384 ms P-R-T Axes : 038 059 070 degrees QTc Int : 408 ms Normal sinus rhythm Nonspecific T wave abnormality Abnormal ECG When compared with ECG of 31-OCT-2023 15:11, Nonspecific T wave abnormality now evident in Anterior leads Confirmed by Tor Romeo ([id number]) on 11/01/2023 11:35:19 AM Referred By: Zacarias Grayson Confirmed By:Tor Romeo
--- NOTE | 2023-11-01 15:05 | Billing Data ---
Date of Service November 01, 2023 Coding Level of Care Code 53814 IN/OBS DISCH 30 MIN/LESS
[2023-11-02] MEDS ORDERED: PRAVASTATIN SOD 40 MG TAB PO SCH (17:00)
--- NOTE | 2023-11-04 12:55 | Electrocardiogram Report ---
Test Reason : Blood Pressure : / mmHG Vent. Rate : 058 BPM Atrial Rate : 058 BPM P-R Int : 168 ms QRS Dur : 094 ms QT Int : 398 ms P-R-T Axes : 050 068 101 degrees QTc Int : 390 ms Sinus bradycardia Diffuse Minor Nonspecific T wave abnormality Abnormal ECG When compared with ECG of 26-AUG-2023 08:09, Nonspecific T wave abnormality now present Confirmed by Chad Marks ([id number]) on 11/04/2023 12:54:58 PM Referred By: Zacarias Grayson Confirmed By:Chad Marks
== END 2023-11-01 10:56 | disposition home or self-care (01) ==
LOC: ED 08:24 → 2S 08:24 → SUATTDRO 12:36

== ENCOUNTER 2025-02-23 19:29 | Observation (INO) ==
--- NOTE | 2025-02-23 20:00 | Emergency Department Note ---
Impression & Plan Stable angina ED Provider Note NAME: REX SUNSHINE AGE: 54 SEX: M : 1970 ARRIVES VIA: Walk-In INFORMANT: Patient, ED PROVIDER(S): Josep Foster DO CHIEF COMPLAINT: chest pain HPI: This is a 54-year-old male with the PMHx of CAD s/p PCI, HLD, BPH and LAWANDA presenting to [facility] for further evaluation of chest pain. Patient is accompanied by who provide additional history. Patient reports over the course of the day he has had chest pain. He reports the pain is similar to prior cardiac events. He reports of burning sensation in the middle and left side of his chest. Does radiate across the chest. Patient states that it seemed to worsen throughout the day today. He did not take any aspirin this morning. Patient states he took no medications for the pain. Associated with some dyspnea. He states he has been doing okay with exertional activities over the course the last few months. He states that today he seems fatigued and weak They deny fever or chills. No cough or congestion. They deny abdominal pain, nausea and vomiting. No urinary complaints. No recent changes in bowel movements. Patient denies recent changes in medications or OTC supplements. Patient offers no other complaints, today. ADDITIONAL HISTORY OBTAINED: Per HPI Chronic Medical/Social Conditions Affecting Care: Per HPI PAST MEDICAL HISTORY: See Below PAST SURGICAL HISTORY: See Below FAMILY HISTORY: See Below SOCIAL HISTORY: See Below HOME MEDICATIONS: See Below ALLERGIES: See Below VITALS: See Below PHYSICAL EXAMINATION: GENERAL: Sitting up in bed, alert, well appearing, well nourished, no distress, non-toxic EYE EXAM: normal conjunctiva. OROPHARYNX: no exudate, no erythema, lips, buccal mucosa, and tongue normal and mucous membranes are moist NECK: supple, no nuchal rigidity, no adenopathy, non-tender LUNGS: Clear to auscultation. Normal chest wall mechanics HEART: no murmurs, regular rate, regular rhythm, 2+ distal pulses, warm and well perfused ABDOMEN: abdomen soft, non-tender, no masses, no rebound or guarding. BACK: Back is symmetrical on inspection and there is no deformity, no midline tenderness, no CVA tenderness. SKIN: no rashes and no bruising UPPER EXTREMITIES: upper extremities are grossly normal. LOWER EXTREMITIES: No pitting edema. NEURO EXAM: Normal sensorium, GCS 15, normal speech, no gross weakness of arms, no gross weakness of legs. MEDICAL DECISION MAKING: Differential diagnoses includes but not limited to ACS, stable vs unstable angina, dysrhythmia, viral URI, pneumonia, pericarditis, pneumothorax, costochondritis, MSK strain, PE, hypertensive emergency, psychological causes, esophageal reflux, gastritis In summary, this is a 54 year old male who presented with chest pain. Differential as above. Nursing notes and pertinent past medical records reviewed. Vital signs reviewed and the patient is afebrile and hemodynamically stable. History and presentation revealed extensive cardiovascular history including premature CAD with PCI in the past. Physical examination revealed as above. As a result of my initial evaluation, we will plan for chest pain workup with troponin trend as well as serial EKGs. Plan for chest x-ray. Will give aspirin.. Diagnostics interpreted by me include EKG and cardiac monitoring as listed below: -Cardiac Monitoring: An order was placed for continuous cardiac monitoring. The monitor shows a rate of 50-70 with regular rhythm. -ECG: Sinus bradycardia at a ventricular rate of [address] segment changes to suggest STEMI. There are biphasic T waves with T wave inversions in leads V2 and V3. Intervals are otherwise within normal limits. Patient completed laboratory studies and imaging. Results independently interpreted by me are no leukocytosis or significant anemia. Electrolytes are normal. The patient was managed with Aspirin load and sublingual nitroglycerin. Patient continues to have chest pain. I did offer further medications including a GI cocktail but he declines. Will give sublingual nitroglycerin. Repeat EKG was obtained and revealed sinus bradycardia at a ventricular rate of [address] segment changes to suggest STEMI. Intervals are otherwise within normal limits. No real changes from prior. His first troponin is normal. Plan for repeat. [facility] Cardiology paged at [phone] Osorio at the patient's request. Chest pain has been relieved by SL NTG x1. Do feel his workup is reassuring. Cardiology agreeable to see the patient in the AM, if admitted. Ultimately, the decision was made to admit the patient for stable angina. I discussed the case with the hospitalist service via telephone/TigerText and they are agreeable to admit the patient to their services by Dr. Uribe. Based on the above, including the patient's age, coexisting illnesses, labs, imaging, and exam findings the decision to treat as an inpatient. I discussed the patient with the hospitalist team who recommended admission to their services. They received the medications, treatments, interventions indicated above and their condition remained stable. I discussed my findings with the patient and their family and they understand and agree with the treatment plan. All patient / family questions were answered to their satisfaction. Consults/Care Managements Discussions: Per MDM ER treatment provided: See above Procedures:none Critical Care: None The chart was completed utilizing [employer] Speech voice recognition software. Grammatical errors, random word insertions, pronoun errors, and incomplete sentences are an occasional consequence of this system due to software limitations, ambient noise, and hardware issues. Any formal questions or concerns about the content, text, or information contained within the body of this dictation should be directly addressed to the physician for clarification. Past Med/Surg History Problem List (Updated 02/26/25 @ 16:14 by Josep Foster DO) Stable angina (Acute) Statin intolerance Dyslipidemia, goal LDL below 70 Sinus bradycardia Chest discomfort CAD (coronary artery disease) Chronic anticoagulation Hemorrhoids Anal fissure Screening PSA (prostate specific antigen) Dyslipidemia (Chronic) BPH (benign prostatic hyperplasia) Coronary artery disease involving [place] coronary artery with unstable angina pectoris Sleep apnea Medical History FH: premature coronary heart disease Unstable angina pectoris Presence of drug coated stent in left circumflex coronary artery Presence of stent in LAD coronary artery History of colon polyps Lumbar disc herniation H/O alcohol abuse quit 3 years ago Dyslipidemia, goal LDL below 70 Postherpetic neuralgia Lumbar herniated disc Family history of heart disease father had heart attack Sleep apnea cpap Situational anxiety Hypothyroidism H/O hemorrhoids H/O testicular cancer dx 2006, sx tx. Surgical History S/P epidural steroid injection [place] teeth removed (1989) S/P hemorrhoidectomy S/P colonoscopy (~2022) Precancerous polyp, 2018 w/ 5 yrs f/u S/P orchiectomy (~2006) S/P vasectomy S/P appendectomy (~2015) Family History Father Myocardial infarction Gallbladder disease Heart disease Dementia Brother Dyslipidemia Denies family history of Ovarian cancer Prostate cancer Breast cancer Colorectal cancer Social History Smoking Status: Never smoker Second Hand Exposure: No; Do You Dip or Chew Tobacco: No; Hx Alcohol Use: Yes Alcohol type: beer Alcohol Intake Frequency: 2-3 x/Week Hx Substance Use: No Preferred Language: Burmese Communication Ability: Effective Visual Impairment: No Limitations Hearing Ability: Normal Help Desk Technician Required: No Beliefs That Will Affect Care: None marital status: Current Living Situation: Spouse current occupational status: employed 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 How many Children do You have: 3 Feels Safe at Home: Yes Childhood Exposure to Second-Hand Smoke: No Diet: regular caffeine: Yes during the past year weight has: increased > 10 lbs Dental Care, Regularly: Yes Physical Activity Frequency: Daily Seatbelt Use: always Sunscreen Use: Yes Assistive Devices: None Allergies Allergies Allergy/AdvReac Type Severity Reaction Status Date / Time ticagrelor [From Brilinta] Allergy shortness Verified 02/24/25 12:25 of breath tamsulosin [From Flomax] AdvReac Dizziness Verified 02/24/25 12:25 Home Meds Home Medications Medication Instructions Recorded Confirmed cholecalciferol (vitamin D3) 50 50 mcg PO QAM 03/06/21 02/23/25 mcg (2,000 unit) capsule Medical Marijuana 10 mg PO UD PRN Pain/stress 04/28/23 02/23/25 clopidogrel 75 mg tablet (Plavix) 75 mg PO QAM 10/31/23 02/23/25 aspirin 81 mg tablet,delayed 81 mg PO HS 02/23/25 02/23/25 release evolocumab 140 mg/mL subcutaneous 140 mg subcut .EVERY 2 WEEKS 02/23/25 02/23/25 pen injector (Lindsey Avendaño) loratadine 10 mg tablet 10 mg PO HS 02/23/25 02/23/25 lutein 20 mg capsule 20 mg PO QAM 02/23/25 02/23/25 metoprolol succinate 25 mg 25 mg PO QAM 02/23/25 02/23/25 tablet,extended release 24 hr Previous Rx's Medication Instructions Recorded nitroglycerin 0.4 mg sublingual 0.4 mg sublingual Q5M PRN chest 08/26/23 tablet pain #25 tabs levothyroxine 75 mcg capsule 75 mcg PO QAM #90 caps 05/13/24 alfuzosin 10 mg tablet,extended 10 mg PO HS #90 tabs 07/07/24 release 24 hr (Uroxatral) finasteride 5 mg tablet 5 mg PO HS #90 tabs 08/12/24 hydrocortisone 1 %-pramoxine 1 % 1 applic HI BID PRN hemorrhoids 02/16/25 rectal foam (Proctofoam HC) #10 grams isosorbide mononitrate 30 mg 30 mg PO QAM #30 tabs 02/24/25 tablet,extended release 24 hr Results & Data (ED) Vital Signs Vital Signs - 24 hr 02/23/25 19:29 02/23/25 19:33 02/23/25 21:00 Temperature 36.8 C Temperature Source Temporal Artery Scan Pulse Rate 65 62 Pulse Rate from SpO2 Sensor 62 Pulse Rhythm Regular Pulse Strength Normal Respiratory Rate 20 20 Respiratory Effort / Characteristics Non-Labored Spontaneous Respiratory Depth Normal Respiratory Pattern Regular Blood Pressure 164/90 H 113/77 Blood Pressure Mean 114 89 Blood Pressure Position Sitting Pulse Oximetry 97 97 Oxygen Delivery Method Room Air Room Air Sepsis Recent Fever Within 48 Hours No Sepsis New/Unexplained Change in Mental Status No Sepsis Action Taken by Nursing No Action Required 02/23/25 21:10 02/23/25 21:30 02/23/25 22:00 Temperature Temperature Source Pulse Rate 64 64 62 Pulse Rate from SpO2 Sensor 65 62 Pulse Rhythm Pulse Strength Respiratory Rate 13 14 Respiratory Effort / Characteristics Respiratory Depth Respiratory Pattern Blood Pressure 125/85 96/79 L Blood Pressure Mean 90 84 Blood Pressure Position Pulse Oximetry 96 Oxygen Delivery Method Sepsis Recent Fever Within 48 Hours Sepsis New/Unexplained Change in Mental Status Sepsis Action Taken by Nursing Laboratory Data 02/24/25 05:14 02/24/25 05:14 Lab Results 02/23/25 Range/Units 19:51 WBC 6.07 (4.8-10.8) K/ul RBC 5.34 (4.70-6.10) M/uL Hgb 15.8 (14.0-18.0) g/dl Hct 45.5 (42.0-52.0) % MCV 85.2 (80.0-100.0) fL MCH 29.6 (25.0-34.0) pg MCHC 34.7 (32.0-36.0) g/dL RDW Std Deviation 38.5 (36.4-46.3) fL RDW Coeff of [place] 12.5 (11.5-14.5) % Plt Count 176 (130-400) K/uL MPV 10.4 (9.4-12.4) fL Immature Gran % (Auto) 0.3 % Neut % (Auto) 53.9 % Lymph % (Auto) 34.6 % [place] % (Auto) 5.8 % Eos % (Auto) 4.4 % Baso % (Auto) 1.0 % Neut # (Auto) 3.27 (1.40-6.50) K/uL Lymph # (Auto) 2.10 (1.20-3.40) K/uL [place] # (Auto) 0.35 (0.11-0.59) K/uL Eos # (Auto) 0.27 (0.00-0.50) K/uL Baso # (Auto) 0.06 (0.00-0.20) K/uL Immature Gran # (Auto) 0.02 (0.01-0.20) K/uL Sodium 139 (136-145) mmol/L Potassium 3.5 (3.5-5.1) mmol/L Chloride 107 (98-107) mmol/L Carbon Dioxide 25 (21-32) mmol/L Anion Gap 7 (3-11) BUN 12 (6-23) mg/dl Creatinine 0.79 (0.6-1.4) mg/dl Est Cr Clr Drug Dosing 122.2 ml/min eGFR 106.23 BUN/Creatinine Ratio 15.2 (10-20) Glucose 102 H (70-99(Fasting)) mg/dl Calcium 8.8 (8.6-10.3) mg/dl Total Bilirubin 0.4 (0.2-1.0) mg/dl AST 19 (13-39) U/L ALT 17 (7-52) U/L Alkaline Phosphatase 60 (34-104) U/L Troponin I High Sens 2.4 (0-20) pg/ml Total Protein 7.1 (6.0-8.3) gm/dl Albumin 4.3 (3.4-5.0) gm/dl Globulin 2.8 (2.5-4.0) gm/dl Albumin/Globulin Ratio 1.5 (0.9-2) Lipase 19 (11-82) U/L Administered Medications Discontinued Medications Aspirin (Aspirin Chew 324 Mg) 324 mg PO NOW [facility] Stop: 02/23/25 19:52 Last Admin: 02/23/25 20:21 Dose: 324 mg Documented By: ROHIT Clopidogrel Bisulfate (Clopidogrel Bisulfate 75 Mg Tab) 75 mg PO [facility] Stop: 03/26/25 08:59 Last Admin: 02/24/25 08:44 Dose: 75 mg Documented By: CHICO Enoxaparin Sodium (Enoxaparin Inj 40 Mg/0.4 Ml Syr) 40 mg SQ [facility] Stop: 03/26/25 08:59 Last Admin: 02/24/25 09:45 Dose: 40 mg Documented By: CHICO Fentanyl Citrate (Fentanyl Citrate Pf 100 Mcg/2 Ml Vial) Confirm Administered Dose 100 mcg .ROUTE .STK-MED ONE Stop: 02/24/25 12:49 Last Increment: 02/24/25 13:59 Dose: 50 mcg Documented By: EDIS Heparin Sodium (Porcine) (Heparin (Porcine) 1000 Unit/Ml 10 Ml ([facility] Use Only)) Confirm Administered Dose 10,000 units .ROUTE .STK-MED ONE Stop: 02/24/25 12:49 Last Admin: 02/24/25 13:59 Dose: 8,000 units Documented By: EDIS Heparin Sodium/Sodium Chloride (Heparin In Nss Infusion 1000 Unit/500 Ml (2 U/Ml) Bag) Confirm Administered Dose 3,000 units IV .STK-MED ONE Stop: 02/24/25 12:49 Last Admin: 02/24/25 13:06 Dose: 3,000 units Documented By: EDIS Ioversol (Optiray 350) Confirm Administered Dose 1 ml .ROUTE .STK-MED ONE Stop: 02/24/25 12:49 Last Admin: 02/24/25 14:01 Dose: 65 ml Documented By: PATEL Isosorbide Mononitrate (Isosorbide [place] Extended Rel 30 Mg Tabcr) 30 mg PO [facility] Stop: 03/26/25 15:59 Last Admin: 02/24/25 16:33 Dose: 30 mg Documented By: VANNESA Levothyroxine Sodium (Levothyroxine Sodium 75 Mcg Tablet) [facility] Stop: 03/26/25 06:29 Last Admin: 02/24/25 06:36 Dose: 75 mcg Documented By: NAV Metoprolol Succinate (Metoprolol Succ 25mg Ext Rel Tab) 25 mg PO QAM [facility] Stop: 03/26/25 08:59 Last Admin: 02/24/25 15:46 Dose: 25 mg Documented By: VANNESA Midazolam HCl (Midazolam Hcl 1 Mg/Ml 2ml Vial) Confirm Administered Dose 2 mg .ROUTE .STK-MED ONE Stop: 02/24/25 12:49 Last Admin: 02/24/25 13:58 Dose: 2 mg Documented By: EDIS Nicardipine HCl (Nicardipine 2,000 Mcg/20 Ml Syr) Confirm Administered Dose 2,000 mcg .ROUTE .STK-MED ONE Stop: 02/24/25 12:49 Last Admin: 02/24/25 13:06 Dose: 2,000 mcg Documented By: MAHAD Nitroglycerin (Nitroglycerin Sl 0.4 Mg/Tab Tab) 0.4 mg SL Q5M PRN PRN Reason: Chest Pain Stop: 03/25/25 19:50 Last Admin: 02/23/25 23:11 Dose: 0.4 mg Documented By: Admin: 02/23/25 21:31 Dose: 0.4 mg Documented By: ROHIT Nitroglycerin/Dextrose (Nitroglycerin/D5w 100mcg/Ml 20ml Syr) Confirm Administered Dose 2,000 mcg .ROUTE .STK-MED ONE Stop: 02/24/25 12:49 Last Admin: 02/24/25 13:06 Dose: 2,000 mcg Documented By: MAHAD Potassium Chloride (Potassium Chloride Crtab 20 Meq Tabcr) 40 meq PO NOW [facility] Stop: 02/23/25 23:11 Last Admin: 02/23/25 23:53 Dose: 40 meq Documented By: NAV Imaging Data Radiologist's Impression: Chest X-Ray 02/23/25 19:51 Exam(s): XR CXR 2 VIEWS EXAM: XR Chest, 2 Views CLINICAL HISTORY: Reason for exam: Chest pain, nonspecific. TECHNIQUE: Frontal and lateral views of the chest. COMPARISON: October 31, 2023. FINDINGS: Lungs: Unremarkable. No infiltration, atelectasis or mass density. Pleural space: Unremarkable. No pneumothorax. No pleural fluid. Heart: Unremarkable. No cardiomegaly. Mediastinum: Unremarkable. Normal mediastinal contour. Bones/joints: Unremarkable. No acute abnormalities. IMPRESSION: No radiographic evidence of acute cardiopulmonary disease. Electronically signed by: Claus Lima MD 02/23/25 23:56 PM Discharge Plan Visit Data Chief Complaint: Chest Pain Stated Complaint: CHEST PAIN/BURNING ED Provider: Josep Foster Discharge Problem: Stable angina Patient Disposition: Admitted As Inpatient Condition: Fair Discharge Instructions Interventions: ED Discharge Assessment Last Done: 02/23/25 23:08
[2025-02-23 20:13] LABS: Hematocrit (blood only) 45.5 % (42.0-52.0); Hemoglobin 15.8 g/dl (14.0-18.0); Immature Granulocytes # (auto) 0.02 K/uL (0.01-0.20); Immature Granulocytes % (auto) 0.3 %; Mean Corpuscular Hemoglobin 29.6 pg (25.0-34.0); Mean Corpuscular Volume 85.2 fL (80.0-100.0); Platelet Count 176 K/uL (130-400); RDW Standard Deviation 38.5 fL (36.4-46.3); Red Blood Count 5.34 M/uL (4.70-6.10); White Blood Count 6.07 K/ul (4.8-10.8)
[2025-02-23] MEDS: ASPIRIN CHEW 324 MG PO STA (20:21)
[2025-02-23 20:37] LABS: Anion Gap 7.0 (3-11); Bilirubin,Total 0.4 mg/dl (0.2-1.0); Calcium 8.8 mg/dl (8.6-10.3); Carbon Dioxide 25.0 mmol/L (21-32); Chloride 107.0 mmol/L (98-107); Potassium 3.5 mmol/L (3.5-5.1); Sodium 139.0 mmol/L (136-145)
[2025-02-23 20:43] LABS: Alanine Aminotransferase 17.0 U/L (7-52); Albumin Globulin Ratio 1.5 (0.9-2); Alkaline Phosphatase 60.0 U/L (34-104); Blood Urea Nitrogen 12.0 mg/dl (6-23); Creatinine Clr Calc Pharmacy 122.2 ml/min; Globulin 2.8 gm/dl (2.5-4.0); Glucose 102.0 mg/dl (70-99(Fasting)); Lipase 19.0 U/L (11-82); Total Protein 7.1 gm/dl (6.0-8.3)
[2025-02-23] MEDS: NITROGLYCERIN SL 0.4 MG/TAB TAB SL PRN (21:31)
--- NOTE | 2025-02-23 22:15 | History & Physical Report ---
Date of Service February 23, 2025 Assessment & Plan (1) Chest pain: (2) CAD (coronary artery disease): (3) Dyslipidemia: (4) Hypothyroidism: (5) Sleep apnea: Plan 54-year-old male with severe multivessel coronary artery disease status post drug-eluting stent to OM1 and distal LAD in August 2023, status post drug-eluting stent to mid RCA in October 2023 presenting with chest pain, lightheadedness and dyspnea on exertion. Patient feels that his pain is similar to his prior cardiac events. Thus far, EKG with no acute ischemic changes, troponin = normal x 2 Patient discussed between ER attending and cardiology, recommend observation and evaluation in the morning #Chest painpatient with known CAD, Moderately suspicious story. Otherwise EKG and troponin are largely unremarkable Observation to medical telemetry Continue to trend troponin Cardiology consultation appreciated Will keep patient n.p.o. for possible stress testing in the morning, will defer to cardiology expertise #Coronary artery disease Continue aspirin Continue Plavix Continue metoprolol Nitroglycerin as needed Patient noted to be intolerant to carvedilol, statins and Zetia #Hyperlipidemiapatient is intolerant to statins and Zetia. He is currently receiving Repatha injections Continue Repatha # hypothyroidismlast TSH = 2.24 in June 2024. He has been on a stable dose of Synthroid Continue Synthroid 75 mcg p.o. every morning #Sleep apneapatient is supposed to wear a device but reports he does not Encourage compliance F/E/N -saline lock, electrolytes within normal limits (potassium given to maintain K of 4), n.p.o. for now ProphylaxisLovenox Dispositionobservation medical telemetry History of Present Illness Chief Complaint: chest pain Primary Care Provider: Zacarias Grayson, III, DIDI Tremaine Lindsay is a 54yo male with history of CAD, HLP, Hypothyroidism and LAWANDA (not on CPAP) presenting with chest pain. Patient had an abnormal stress echocardiogram on 08/26/2023. He had a cardiac catheterization performed which revealed severe multivessel disease. He had a PCI with drug-eluting stent placed to the OM1 and distal LAD. After his stent placement patient developed recurrent chest pain. He had a repeat catheterization performed on 10/31/2023 which again revealed severe multivessel disease, 70% mid RCA stenosis, 40 to 50% proximal LAD and 30% ostial circumflex. LAD PCI with drug-eluting stent x 1 placed to the mid RCA. Patient follows with [facility]. Last seen on November 02, 2024. Patient developed chest pain last evening 02/22/2025. The pain is left sided with radiation into the left arm and shoulder. He describes pain as burning, aching and feeling "knotted up". Pain has been persistent. Today patient has been feeling more fatigued, tired and "off". His pain has persisted throughout the day today which prompted him to come to the emergency room. He did take 1 nitroglycerin at home which provided some relief. Pain persistent. Also with mild lightheadedness. He also reports some dyspnea on exertion mainly with climbing stairs. Patient also reports that he feels "emotional" which was similar to prior cardiac events. Otherwise denies fever, chills, palpitations, cough, abdominal pain, nausea, vomiting, diaphoresis. No additional complaints. voices concern as patient's cardiac markers and EKGs are typically normal however, he has had 2 prior catheterizations requiring intervention in the past. In the emergency room patient is afebrile, hemodynamically stable, mild bradycardia Allergies Allergy/AdvReac Type Severity Reaction Status Date / Time ticagrelor [From Brilinta] Allergy shortness Verified 02/16/25 09:37 of breath tamsulosin [From Flomax] AdvReac Dizziness Verified 02/23/25 23:11 Home Medications Medication Instructions Recorded Confirmed Type cholecalciferol (vitamin D3) 50 50 mcg PO QAM 03/06/21 02/23/25 History mcg (2,000 unit) capsule Medical Marijuana 10 mg PO UD PRN Pain/stress 04/28/23 02/23/25 History nitroglycerin 0.4 mg sublingual 0.4 mg sublingual Q5M PRN chest 08/26/23 02/23/25 Rx tablet pain #25 tabs clopidogrel 75 mg tablet (Plavix) 75 mg PO QAM 10/31/23 02/23/25 History levothyroxine 75 mcg capsule 75 mcg PO QAM #90 caps 05/13/24 02/23/25 Rx alfuzosin 10 mg tablet,extended 10 mg PO HS #90 tabs 07/07/24 02/23/25 Rx release 24 hr (Uroxatral) finasteride 5 mg tablet 5 mg PO HS #90 tabs 08/12/24 02/23/25 Rx hydrocortisone 1 %-pramoxine 1 % 1 applic [place] BID PRN hemorrhoids 02/16/25 02/23/25 Rx rectal foam (Proctofoam HC) #10 grams aspirin 81 mg tablet,delayed 81 mg PO HS 02/23/25 02/23/25 History release evolocumab 140 mg/mL subcutaneous 140 mg subcut .EVERY 2 WEEKS 02/23/25 02/23/25 History pen injector (Lindsey Avendaño) loratadine 10 mg tablet 10 mg PO HS 02/23/25 02/23/25 History lutein 20 mg capsule 20 mg PO QAM 02/23/25 02/23/25 History metoprolol succinate 25 mg 25 mg PO QAM 02/23/25 02/23/25 History tablet,extended release 24 hr Past Med/Surg History Problem List (Updated 02/24/25 @ 03:33 by Yun Uribe DO) CAD (coronary artery disease) Chronic anticoagulation Hemorrhoids Anal fissure Screening PSA (prostate specific antigen) Dyslipidemia (Chronic) BPH (benign prostatic hyperplasia) Coronary artery disease involving [place] coronary artery with unstable angina pectoris Sleep apnea Medical History FH: premature coronary heart disease Unstable angina pectoris Presence of drug coated stent in left circumflex coronary artery Presence of stent in LAD coronary artery History of colon polyps Lumbar disc herniation H/O alcohol abuse quit 3 years ago Dyslipidemia, goal LDL below 70 Postherpetic neuralgia Lumbar herniated disc Family history of heart disease father had heart attack Sleep apnea cpap Situational anxiety Hypothyroidism H/O hemorrhoids H/O testicular cancer dx 2006, sx tx. Surgical History S/P epidural steroid injection [place] teeth removed (1989) S/P hemorrhoidectomy S/P colonoscopy (~2022) Precancerous polyp, 2018 w/ 5 yrs f/u S/P orchiectomy (~2006) S/P vasectomy S/P appendectomy (~2015) Family History Father Myocardial infarction Gallbladder disease Heart disease Dementia Brother Dyslipidemia Denies family history of Ovarian cancer Prostate cancer Breast cancer Colorectal cancer Social History Smoking Status: Never smoker Second Hand Exposure: No; Do You Dip or Chew Tobacco: No; Tobacco Cessation Education Requested by Patient: No Hx Alcohol Use: Yes Alcohol type: beer Alcohol Intake Frequency: 2-3 x/Week Hx Substance Use: No Preferred Language: Mohawk Communication Ability: Effective Visual Impairment: No Limitations Hearing Ability: Normal Planishing Hammer Operator Required: No Beliefs That Will Affect Care: None marital status: Current Living Situation: Spouse current occupational status: employed 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 [employer] How many Children do You have: 3 Other Information That Helps Us Care for You: No Feels Safe at Home: Yes Safety Concerns: Feels Safe At This Time Childhood Exposure to Second-Hand Smoke: No Diet: regular caffeine: Yes during the past year weight has: increased > 10 lbs Dental Care, Regularly: Yes Physical Activity Frequency: Daily Seatbelt Use: always Sunscreen Use: Yes Assistive Devices: Glasses Review of Systems Review of Systems: All systems reviewed & are unremarkable except as noted in HPI & below Physical Exam Physical Exam: General: patient resting comfortably, NAD, non-toxic in appearance, AA&O x 4 Skin: warm, dry, intact, no rashes or lesions HEENT: NC/AT, PERRL, EOMI, anicteric sclera, conjunctiva without injection, external ear normal to inspection and nontender, nares patent, moist mucus membranes, dentition intact, no oropharyngeal lesions, neck supple, trachea midline, no LAD, no thyromegaly, no JVD Heart: +S1/S2, regular, no m/r/g Lungs: equal air entry bilaterally, no rales/rhonchi/wheezes Abd: +BS, soft, NT/ND, no masses/organomegaly/ascites Ext: warm, 2+ pulses in UE/LE bilaterally, no clubbing/cyanosis or edema Neuro: nonfocal, patient AA&O x 4, speech intact, no facial droop, moving all extremities on command with equal strength 5/5 Results & Data Results & Data Vital Signs (Past 12 Hours) Vital Signs Temp Pulse Resp BP Pulse Ox O2 Del Method 02/23/25 22:00 62 14 96/79 L 02/23/25 21:30 64 13 125/85 96 02/23/25 21:10 64 02/23/25 21:00 62 20 113/77 97 02/23/25 19:33 36.8 C 65 20 164/90 H 97 Room Air 02/23/25 19:29 Room Air Laboratory Results Laboratory Results WBC 6.07 K/ul (4.8-10.8) 02/23/25 19:51 RBC 5.34 M/uL (4.70-6.10) 02/23/25 19:51 Hgb 15.8 g/dl (14.0-18.0) 02/23/25 19:51 Hct 45.5 % (42.0-52.0) 02/23/25 19:51 MCV 85.2 fL (80.0-100.0) 02/23/25 19:51 MCH 29.6 pg (25.0-34.0) 02/23/25 19:51 MCHC 34.7 g/dL (32.0-36.0) 02/23/25 19:51 RDW Std Deviation 38.5 fL (36.4-46.3) 02/23/25 19:51 RDW Coeff of [place] 12.5 % (11.5-14.5) 02/23/25 19:51 Plt Count 176 K/uL (130-400) 02/23/25 19:51 MPV 10.4 fL (9.4-12.4) 02/23/25 19:51 Immature Gran % (Auto) 0.3 % 02/23/25 19:51 Neut % (Auto) 53.9 % 02/23/25 19:51 Lymph % (Auto) 34.6 % 02/23/25 19:51 Lea % (Auto) 5.8 % 02/23/25 19:51 Eos % (Auto) 4.4 % 02/23/25 19:51 Baso % (Auto) 1.0 % 02/23/25 19:51 Neut # (Auto) 3.27 K/uL (1.40-6.50) 02/23/25 19:51 Lymph # (Auto) 2.10 K/uL (1.20-3.40) 02/23/25 19:51 Lea # (Auto) 0.35 K/uL (0.11-0.59) 02/23/25 19:51 Eos # (Auto) 0.27 K/uL (0.00-0.50) 02/23/25 19:51 Baso # (Auto) 0.06 K/uL (0.00-0.20) 02/23/25 19:51 Immature Gran # (Auto) 0.02 K/uL (0.01-0.20) 02/23/25 19:51 Sodium 139 mmol/L (136-145) 02/23/25 19:51 Potassium 3.5 mmol/L (3.5-5.1) 02/23/25 19:51 Chloride 107 mmol/L (98-107) 02/23/25 19:51 Carbon Dioxide 25 mmol/L (21-32) 02/23/25 19:51 Anion Gap 7 (3-11) 02/23/25 19:51 BUN 12 mg/dl (6-23) 02/23/25 19:51 Creatinine 0.79 mg/dl (0.6-1.4) 02/23/25 19:51 Est Cr Clr Drug Dosing 122.2 ml/min 02/23/25 19:51 eGFR 106.23 02/23/25 19:51 BUN/Creatinine Ratio 15.2 (10-20) 02/23/25 19:51 Glucose 102 mg/dl (70-99(Fasting)) H 02/23/25 19:51 Calcium 8.8 mg/dl (8.6-10.3) 02/23/25 19:51 Magnesium 2.3 mg/dl (1.7-2.4) 02/23/25 22:21 Total Bilirubin 0.4 mg/dl (0.2-1.0) 02/23/25 19:51 AST 19 U/L (13-39) 02/23/25 19:51 ALT 17 U/L (7-52) 02/23/25 19:51 Alkaline Phosphatase 60 U/L (34-104) 02/23/25 19:51 Troponin I High Sens 2.7 pg/ml (0-20) 02/23/25 22:21 Total Protein 7.1 gm/dl (6.0-8.3) 02/23/25 19:51 Albumin 4.3 gm/dl (3.4-5.0) 02/23/25 19:51 Globulin 2.8 gm/dl (2.5-4.0) 02/23/25 19:51 Albumin/Globulin Ratio 1.5 (0.9-2) 02/23/25 19:51 Lipase 19 U/L (11-82) 02/23/25 19:51 Impressions Chest X-Ray 02/23/25 19:51 Exam(s): XR CXR 2 VIEWS EXAM: XR Chest, 2 Views CLINICAL HISTORY: Reason for exam: Chest pain, nonspecific. TECHNIQUE: Frontal and lateral views of the chest. COMPARISON: October 31, 2023. FINDINGS: Lungs: Unremarkable. No infiltration, atelectasis or mass density. Pleural space: Unremarkable. No pneumothorax. No pleural fluid. Heart: Unremarkable. No cardiomegaly. Mediastinum: Unremarkable. Normal mediastinal contour. Bones/joints: Unremarkable. No acute abnormalities. IMPRESSION: No radiographic evidence of acute cardiopulmonary disease. Electronically signed by: Claus Lima MD 02/23/25 23:56 PM Diagnostic Findings cardiac catheterization 10/31/2023 Stable multivessel coronary artery disease 70% mid RCA 40 to 50% proximal, mid LAD. A late mid LAD stent widely patent 30% ostial circumflex. In circumflex and OM 2 stent widely patent Normal intracardiac filling pressures Successful PCI of mid RCA with intravascular lithotripsy and a single drug- eluting stent Echo 10/27/2023 Mild concentric LVH No regional wall motion abnormalities noted LVEF equals 55 to 60% Right ventricle is normal in size and function Mild mitral regurgitation There is no pericardial effusion Cardiac catheterization August 25, 2023 Dominant right Left main normal LAD proximal 40 to 50%, mid 40 to 50% and distal 60 to 70% D1 normal D2 normal Circumflex ostial 20% OM1 mid 8090% plus thrombus RCA proximal mild and mid 50 to 70% Ramus diffuse less than 20% ECG Additional Comments: EKG was sinus bradycardia 54 bpm, no acute ischemic changes PG Care Time/CCT Total # of Minutes Spent Total Time Spent with Patient: Total time spent is greater than 50% in coordination of care (as documented) at patient's floor/unit and/or counseling patient: Coding Level of Care Code 12940 INT INP/OBS CARE 3/75MIN Diagnoses Chest pain R07.89 Chest pain type: other chest pain CAD (coronary artery disease) I25.10 Dyslipidemia E78.5 Hypothyroidism E03.9 Sleep apnea G47.30 (1) Chest pain Chest pain type: other chest pain Qualified Code(s): R07.89 - Other chest pain
[2025-02-23] MEDS ORDERED: MELATONIN 3 MG TAB PO PRN (23:10)
[2025-02-23] MEDS ORDERED: ONDANSETRON INJ 2 MG/ML 2 ML VIAL IV PRN (23:10)
[2025-02-23] MEDS ORDERED: ACETAMINOPHEN 325 MG TAB PO PRN (23:10)
[2025-02-23] MEDS ORDERED: NITROGLYCERIN SL 0.4 MG/TAB TAB SL PRN (23:10)
[2025-02-23 23:37] LABS: Magnesium 2.3 mg/dl (1.7-2.4)
[2025-02-23] MEDS: POTASSIUM CHLORIDE CRTAB 20 MEQ TABCR PO STA (23:53)
--- NOTE | 2025-02-23 23:57 | XRay Report ---
Exam(s): XR CXR 2 VIEWS EXAM: XR Chest, 2 Views CLINICAL HISTORY: Reason for exam: Chest pain, nonspecific. TECHNIQUE: Frontal and lateral views of the chest. COMPARISON: October 31, 2023. FINDINGS: Lungs: Unremarkable. No infiltration, atelectasis or mass density. Pleural space: Unremarkable. No pneumothorax. No pleural fluid. Heart: Unremarkable. No cardiomegaly. Mediastinum: Unremarkable. Normal mediastinal contour. Bones/joints: Unremarkable. No acute abnormalities. IMPRESSION: No radiographic evidence of acute cardiopulmonary disease. Electronically signed by: Claus Lima MD 02/23/25 23:56 PM
[2025-02-24 05:53] LABS: Hematocrit (blood only) 41.7 % (42.0-52.0); Hemoglobin 14.9 g/dl (14.0-18.0); Mean Corpuscular Hemoglobin 30.9 pg (25.0-34.0); Mean Corpuscular Volume 86.5 fL (80.0-100.0); Platelet Count 164 K/uL (130-400); RDW Standard Deviation 39.1 fL (36.4-46.3); Red Blood Count 4.82 M/uL (4.70-6.10); White Blood Count 6.06 K/ul (4.8-10.8)
[2025-02-24 06:06] LABS: Anion Gap 3.0 (3-11); Blood Urea Nitrogen 10.0 mg/dl (6-23); Calcium 8.4 mg/dl (8.6-10.3); Carbon Dioxide 26.0 mmol/L (21-32); Chloride 111.0 mmol/L (98-107); Creatinine Clr Calc Pharmacy 128.7 ml/min; Glucose 97.0 mg/dl (70-99(Fasting)); Potassium 4.1 mmol/L (3.5-5.1); Sodium 140.0 mmol/L (136-145)
[2025-02-24] MEDS: LEVOTHYROXINE SODIUM 75 MCG TABLET PO SCH (06:36)
[2025-02-24] MEDS: CLOPIDOGREL BISULFATE 75 MG TAB PO SCH (08:44)
--- NOTE | 2025-02-24 09:17 | Cardiology Consultation ---
Date of Consultation February 24, 2025 Assessment & Plan (1) Chest discomfort: (2) CAD (coronary artery disease): (3) Sinus bradycardia: (4) Statin intolerance: Plan 54-year-old male presents for evaluation of chest discomfort. Atypical features noted, however, moderately concerning for angina given complex history noted above including multivessel PCI. Further ischemic evaluation is warranted. I discussed proceeding with exercise stress testing versus coronary angiography. Patient prefers noninvasive, exercise stress at this time. Will perform resting echocardiogram and treadmill testing this morning. A.m. dose of Toprol held due to sinus bradycardia. Will proceed to coronary angiography if resting echo demonstrates any new regional wall motion abnormality, and/or exercise stress echo suggestive of exertional angina/ischemia. Continue current cardiovascular medications including aspirin, clopidogrel, and Repatha. Moshe Osorio DO, [facility] History of Present Illness Reason for Consultation: Chest pain, history of premature coronary artery disease Requesting Physician: Dr. Yun Uribe Attending Physician: Le Hyman MD History of Present Illness 54-year-old male history of premature coronary disease status post PCI of the LAD, obtuse marginal, and RCA presents to the emergency department with chest pain. Describes substernal left-sided chest discomfort 3/4 out of 10 beginning on Friday. Pain began in the morning and has been essentially constant over that time. Able to sleep during the night however, stayed home from work on Friday. Continues to note mild discomfort not affected by position, activi ty, or exertion. Presented to the ER for further evaluation and treatment last evening. Received 2 sublingual nitroglycerin with possible temporary relief however symptoms essentially unchanged today. Telemetry reveals sinus rhythm overnight. Repeat ECG this morning within normal limits. Complex coronary history noted below. Cardiac history: 1. Coronary artery disease a. Cardiac CATH (08/25/23) with MUNA to OM1 and distal LAD due to angina and abnormal stress ECHO b. Recurrent angina prompting repeat Cardiac CATH (10/2023) with MUNA to RCA c. Intolerant to carvedilol 2. HLD a. Intolerant to statins and Zetia Allergies Allergy/AdvReac Type Severity Reaction Status Date / Time ticagrelor [From Brilinta] Allergy shortness Verified 02/24/25 12:25 of breath tamsulosin [From Flomax] AdvReac Dizziness Verified 02/24/25 12:25 Home Medications Medication Instructions Recorded Confirmed Type cholecalciferol (vitamin D3) 50 50 mcg PO QAM 03/06/21 02/23/25 History mcg (2,000 unit) capsule Medical Marijuana 10 mg PO UD PRN Pain/stress 04/28/23 02/23/25 History nitroglycerin 0.4 mg sublingual 0.4 mg sublingual Q5M PRN chest 08/26/23 02/23/25 Rx tablet pain #25 tabs clopidogrel 75 mg tablet (Plavix) 75 mg PO QAM 10/31/23 02/23/25 History levothyroxine 75 mcg capsule 75 mcg PO QAM #90 caps 05/13/24 02/23/25 Rx alfuzosin 10 mg tablet,extended 10 mg PO HS #90 tabs 07/07/24 02/23/25 Rx release 24 hr (Uroxatral) finasteride 5 mg tablet 5 mg PO HS #90 tabs 08/12/24 02/23/25 Rx hydrocortisone 1 %-pramoxine 1 % 1 applic [place] BID PRN hemorrhoids 02/16/25 02/23/25 Rx rectal foam (Proctofoam HC) #10 grams aspirin 81 mg tablet,delayed 81 mg PO HS 02/23/25 02/23/25 History release evolocumab 140 mg/mL subcutaneous 140 mg subcut .EVERY 2 WEEKS 02/23/25 02/23/25 History pen injector (Lindsey Avendaño) loratadine 10 mg tablet 10 mg PO HS 02/23/25 02/23/25 History lutein 20 mg capsule 20 mg PO QAM 02/23/25 02/23/25 History metoprolol succinate 25 mg 25 mg PO QAM 02/23/25 02/23/25 History tablet,extended release 24 hr Patient History Medical History FH: premature coronary heart disease Unstable angina pectoris Presence of drug coated stent in left circumflex coronary artery Presence of stent in LAD coronary artery History of colon polyps Lumbar disc herniation H/O alcohol abuse quit 3 years ago Dyslipidemia, goal LDL below 70 Postherpetic neuralgia Lumbar herniated disc Family history of heart disease father had heart attack Sleep apnea cpap Situational anxiety Hypothyroidism H/O hemorrhoids H/O testicular cancer dx 2006, sx tx. Surgical History S/P epidural steroid injection [place] teeth removed (1989) S/P hemorrhoidectomy S/P colonoscopy (~2022) Precancerous polyp, 2018 w/ 5 yrs f/u S/P orchiectomy (~2006) S/P vasectomy S/P appendectomy (~2015) Family History Father Myocardial infarction Gallbladder disease Heart disease Dementia Brother Dyslipidemia Denies family history of Ovarian cancer Prostate cancer Breast cancer Colorectal cancer Social History Smoking Status: Never smoker Second Hand Exposure: No; Do You Dip or Chew Tobacco: No; Tobacco Cessation Education Requested by Patient: No Hx Alcohol Use: Yes Alcohol type: beer Alcohol Intake Frequency: 2-3 x/Week Hx Substance Use: No Preferred Language: Belgian Communication Ability: Effective Visual Impairment: No Limitations Hearing Ability: Normal Grades 7 8 Tutor Required: No Beliefs That Will Affect Care: None marital status: Current Living Situation: Spouse current occupational status: employed 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 How many Children do You have: 3 Other Information That Helps Us Care for You: No Feels Safe at Home: Yes Safety Concerns: Feels Safe At This Time Childhood Exposure to Second-Hand Smoke: No Diet: regular caffeine: Yes during the past year weight has: increased > 10 lbs Dental Care, Regularly: Yes Physical Activity Frequency: Daily Seatbelt Use: always Sunscreen Use: Yes Assistive Devices: Glasses Review of Systems Review of Systems: All systems reviewed & are unremarkable except as noted in Subjective Physical Exam Constitutional: well nourished; no acute distress and not ill appearing Respiratory: no respiratory distress, no labored breathing and no retractions Auscultation: no crackles, no rales, no rhonchi and no wheezes Cardiovascular: Rate/Rhythm: regular rate and regular rhythm Heart Sounds: normal S1 and normal S2; no murmur Vessels: radial pulses present; no JVD and no carotid bruit Extremities: no edema Gastrointestinal (Abdomen): Inspection/Auscultation: normal bowel sounds; abdomen not distended Percussion/Palpation: abdomen soft; abdomen nontender, no guarding and abdomen not rigid Neurologic: CN's II-XI intact bilaterally and moves all extremities; no focal motor deficits Results & Data Vital Signs (Past 12 Hours) Vital Signs Temp Pulse Pulse Resp BP BP BP 02/24/25 07:14 36.4 C L 54 L 18 110/73 02/24/25 02:54 36.4 C L 55 L 18 125/74 02/23/25 23:11 50 L 02/23/25 23:10 36.4 C L 65 16 145/84 H 02/23/25 22:00 62 14 96/79 L 02/23/25 21:30 64 13 125/85 Pulse Ox O2 Del Method 02/24/25 07:14 96 Room Air 02/24/25 02:54 96 Room Air 02/23/25 23:11 02/23/25 23:10 98 Room Air 02/23/25 22:00 02/23/25 21:30 96 Laboratory Results Cardiac Enzymes 02/23/25 02/23/25 02/24/25 Range/Units 19:51 22:21 05:14 AST 19 (13-39) U/L Troponin I High Sens 2.4 2.7 2.8 (0-20) pg/ml CBC 02/23/25 02/24/25 Range/Units 19:51 05:14 WBC 6.07 6.06 (4.8-10.8) K/ul RBC 5.34 4.82 (4.70-6.10) M/uL Hgb 15.8 14.9 (14.0-18.0) g/dl Hct 45.5 41.7 L (42.0-52.0) % Plt Count 176 164 (130-400) K/uL Neut # (Auto) 3.27 (1.40-6.50) K/uL Lymph # (Auto) 2.10 (1.20-3.40) K/uL [place] # (Auto) 0.35 (0.11-0.59) K/uL Eos # (Auto) 0.27 (0.00-0.50) K/uL Baso # (Auto) 0.06 (0.00-0.20) K/uL Comprehensive Metabolic Panel 02/23/25 02/24/25 Range/Units 19:51 05:14 Sodium 139 140 (136-145) mmol/L Potassium 3.5 4.1 (3.5-5.1) mmol/L Chloride 107 111 H (98-107) mmol/L Carbon Dioxide 25 26 (21-32) mmol/L BUN 12 10 (6-23) mg/dl Creatinine 0.79 0.75 (0.6-1.4) mg/dl Glucose 102 H 97 (70-99(Fasting)) mg/dl Calcium 8.8 8.4 L (8.6-10.3) mg/dl AST 19 (13-39) U/L ALT 17 (7-52) U/L Alkaline Phosphatase 60 (34-104) U/L Total Protein 7.1 (6.0-8.3) gm/dl Albumin 4.3 (3.4-5.0) gm/dl Intake and Output 02/23/25 02/24/25 02/24/25 22:59 06:59 14:59 Other: Other Intake Source NPO # Unmeasured Voids 1 Weight 95.4 kg 94.7 kg Weight Measurement Method Built in [facility] PG Care Time/CCT Total # of Minutes Spent Total Time Spent with Patient: Total time spent is greater than 50% in coordination of care (as documented) at patient's floor/unit and/or counseling patient: Coding Level of Care Code 13103 IN/OBS CONSULT LVL 5,80M Diagnoses Chest discomfort R07.89 Coronary artery disease involving [place] coronary artery of [place] heart with angina pectoris I25.119 Coronary Disease-Associated Artery/Lesion type: [place] artery [place] vs. transplanted heart: [place] heart Associated angina: with unspecified form of angina Sinus bradycardia R00.1 Statin intolerance Z78.9 (2) CAD (coronary artery disease) Coronary Disease-Associated Artery/Lesion type: [place] artery [place] vs. transplanted heart: [place] heart Associated angina: with unspecified form of angina Qualified Code(s): I25.119 - Atherosclerotic heart disease of [place] coronary artery with unspecified angina pectoris
[2025-02-24] MEDS: ENOXAPARIN INJ 40 MG/0.4 ML SYR SQ SCH (09:45)
--- NOTE | 2025-02-24 12:29 | Pre Anesthesia Assessment ---
Date of Service February 24, 2025 Pre Sedation Assessment Vital Signs Temp Pulse Pulse Resp BP BP BP 02/24/25 12:22 36.6 C 60 18 133/78 02/24/25 07:14 36.4 C L 54 L 18 110/73 02/24/25 02:54 36.4 C L 55 L 18 125/74 02/23/25 23:11 50 L 02/23/25 23:10 36.4 C L 65 16 145/84 H 02/23/25 22:00 62 14 96/79 L 02/23/25 21:30 64 13 125/85 02/23/25 21:10 64 02/23/25 21:00 62 20 113/77 02/23/25 19:33 36.8 C 65 20 164/90 H 02/23/25 19:29 Pulse Ox O2 Del Method 02/24/25 12:22 97 Room Air 02/24/25 07:14 96 Room Air 02/24/25 02:54 96 Room Air 02/23/25 23:11 02/23/25 23:10 98 Room Air 02/23/25 22:00 02/23/25 21:30 96 02/23/25 21:10 02/23/25 21:00 97 02/23/25 19:33 97 Room Air 02/23/25 19:29 Room Air Cardiovascular RRR, no murmur, no edema + regular rate and + bradycardic + S1 normal and + S2 normal + PMI normal + femoral pulses present and + radial pulses present; no JVD and no carotid bruit no edema Respiratory + respiratory effort normal; no respiratory distress, no labored breathing and no retractions + clear to auscultation bilaterally; no crackles, no rales, no rhonchi and no wheezes Pre-Sedation Airway Assessment Smoking Status: Never smoker Hx Sleep Apnea: Yes Hx Difficult Intubation: No Short, Thick Neck: No Thyromental Distance: > or= 3.5 Finger Breadths Oral Cavity: + WNL Mallampati Class: III ASA: ASA3 NPO Status Date of Last Intake of Fluids: 02/24/25 Time of Last Intake of Fluids: 06:00 Date of Last Intake of Solid Food: 02/23/25 Time of Last Intake of Solid Foods: 18:00 Procedure Planning Contraindications for Sedation: none Current Medications Reviewed: Yes Notes The planned sedation has been discussed with the patient. Informed Consent was obtained. I have identified the patient, determined the appropriateness of sedation and have assessed the patient immediately prior to the procedure. All medicine(s) and interventions are by my order.
[2025-02-24] MEDS: niCARdipine 2,000 MCG/20 ML SYR ONE (13:06)
[2025-02-24] MEDS: NITROGLYCERIN/D5W 100MCG/ML 20ML SYR ONE (13:06)
--- NOTE | 2025-02-24 13:47 | Post Anesthesia Assessment ---
Date of Service February 24, 2025 Post Sedation Assessment Vital Signs Temp Pulse Pulse Resp BP BP BP 02/24/25 12:22 36.6 C 60 18 133/78 02/24/25 07:14 36.4 C L 54 L 18 110/73 02/24/25 02:54 36.4 C L 55 L 18 125/74 02/23/25 23:11 50 L 02/23/25 23:10 36.4 C L 65 16 145/84 H 02/23/25 22:00 62 14 96/79 L 02/23/25 21:30 64 13 125/85 02/23/25 21:10 64 02/23/25 21:00 62 20 113/77 02/23/25 19:33 36.8 C 65 20 164/90 H 02/23/25 19:29 Pulse Ox O2 Del Method 02/24/25 12:22 97 Room Air 02/24/25 07:14 96 Room Air 02/24/25 02:54 96 Room Air 02/23/25 23:11 02/23/25 23:10 98 Room Air 02/23/25 22:00 02/23/25 21:30 96 02/23/25 21:10 02/23/25 21:00 97 02/23/25 19:33 97 Room Air 02/23/25 19:29 Room Air Recovery Score Activity: Moves 4 extremities Respiration: Deep Breath/Cough Circulation: +/-20% PreAnes Value Consciousness: Fully Awake Oxygen Saturation: > 92% On Room Air Discharge Sedation Level of Care: Fast Track Phase II Post Sedation Plan On clinical assessment, the patient appears to have tolerated the sedation without complications. Patient is recovering as anticipated. Patient will continue to be monitored by nursing and may be discharged when sedation discharge criteria are met per below protocol. Upon Completions of procedure up to 15 minutes continue every 5 minute vital signs and the P.A.R. score; then discharge to a Phase I or Fast Track to Phase II per the following guidelines: * Discharge Patient to appropriate Phase II area if PAR is 8 or greater or return to pre- procedure baseline. The post - procedure orders will be as directed. * If PAR score is less than 8 or not return to pre-procedure baseline then patient will follow Phase I monitoring till PAR is reached for Phase II. The Phase I may be done in procedure room or may call to secure a Phase I area. * If naloxone or flumazenil are used for reversal, hold in Phase I for continued monitoring from when last reversal dose was given for a minimum of 60 minutes or longer pending the nurse and/or physician discretion of patient condition before discharge to Phase II. Please call the Sedation Physician to re-evaluate and complete post-note for discharge to Phase II area. Do NOT discharge from procedure sedation or Phase 1 until post- sedation evalu ation note is complete by procedure /sedation MD Sedation Discharge Instructions to be given to the patient at discharge to home.
[2025-02-24] MEDS: MIDAZOLAM HCL 1 MG/ML 2ML VIAL ONE (13:58)
[2025-02-24] MEDS: HEPARIN (PORCINE) 1000 UNIT/ML 10 ML (CATH LAB USE ONLY) ONE (13:59)
[2025-02-24] MEDS: OPTIRAY 350 ONE (14:01)
--- NOTE | 2025-02-24 14:01 | Cardiac Catheterization ---
[facility] Data: [facility] Cardiac Status Clinical evaluation leading to the procedure 54-year-old male history of multivessel coronary disease status post multivessel PCI presented to the ER with chest pain. Exercise stress echo performed which was found to be equivocal for inducible ischemia. Patient reproduced anginal symptoms on treadmill with inferior ST depression. Unable to achieve target heart rate due to beta-yudith therapy. No regional wall motion abnormalities on stress images. CAD Presenation: Positive Stress Test Anginal Classification: CCS II Coronary Anatomy Dominant: Right Left Main (% Stenosis): Normal (mild calcification) LAD (% Stenosis): Proximal (50%) and Mid (50-60%, Patent stent distal to stenosis) D1 (% Stenosis): Proximal (20%) D2 (% Stenosis): Proximal (30%) Circumflex (% Stenosis): Ostial (20%) OM1 (% Stenosis): Mid (Patent stent) RCA (% Stenosis): Proximal (Patent stent with 10% ISR) and Mid (Luminal irregularities, 20%) R PDA (% Stenosis): Proximal (10%) R PL1 (% Stenosis): Normal R PL2 (% Stenosis): Normal Ramus (% Stenosis): Normal Diagnostic Physicians Name: Moshe Osorio DO Closure Device Percutaneous Entry Location: Radial (Under ultrasound guidance) Closure Device: Radial Band Recommendations: Medical Therapy and/or Counseling and Management Recommendatons (Interventional cardiology consulted for hemodynamic assessment of moderate LAD stenosis) Intraprocedure Events Significant Disection: No Perforation: No Cardiac Cath Procedure Full Procedure Date February 24, 2025 Pre-Procedure Diagnosis Pre-Procedure Diagnosis: Angina, Positive Stress Test (Equivocal exercise stress echo) and CAD (history of premature CAD, PCI LAD, OM1, and RCA) AUC Score AUC Score: 07 Post-Procedure Diagnosis Post-Procedure Diagnosis: Moderate CAD (patent LAD, OM1, and RCA stent) and Normal Intracardiac Pressures Procedure(s) Performed Procedure(s) Performed: Coronary Angiography, Left Heart Cath, Drug Eluting Stent, IVUS, Fractional Flow Elliott and Procedure (Intravascular lithotripsy) Seo Strategist Moshe Osorio DO Associate Property Manager(s) Model And Dye Person CLIENT DIRECTOR Estimated Blood Loss Estimated Blood Loss: 5cc Medication(s) Medication(s): Fentanyl, Heparin, Lidocaine 1%, Nicardipine, Nitroglycerin and Versed Summary of Findings 50% proximal LAD 50-60% mid LAD Patent mid LAD stent Patent OM1 stent Patent RCA stent Hemodynamics Rest Ao:: 103/75/89 Final Ao: 113/69/898 LV: 108/6/14 Recommendations Recommendations: Medical Therapy and/or Counseling and Management Recommendatons (Interventional cardiology consulted for hemodynamic assessment of moderate LAD stenosis) Specimens Specimens: None Radiation Exposure (mGy) 747 Contrast (mls) 50 Fluids (cc crystalloids) Fluids (cc crystalloids): 0cc Drains Drains: N/A Anesthesia Moderate sedation. Start 1303. End 1337. Sedation monbrooke Valentin RN Procedural Complication(s) None Disposition Patient remained in [facility] for assessment of LAD. I attest to the content of the Intraoperative Record and any orders documented therein. Any exceptions are noted below. [facility] Card Cath Procedure Codes Cardiac Catheterization Procedure 1: Cardiovascular Cath Procedures: 55609 Coronaries and LHC (+/-LV) Moderate Sedation Procedure 1: Sedation/Anesthesia: 50109 Mod Sedation by the same physician;Init15 Min Child Age 5 & Up Procedure 2: Sedation/Anesthesia: 54344 Mod Sedation by the same physician; Ea [id number] Minutes PG Care Time/CCT Total # of Minutes Spent Total Time Spent with Patient: Total time spent is greater than 50% in coordination of care (as documented) at patient's floor/unit and/or counseling patient:
[2025-02-24] MEDS: METOPROLOL SUCC 25MG EXT REL TAB PO SCH (15:46)
--- NOTE | 2025-02-24 15:50 | Discharge Summary ---
Discharge Summary Date of Service February 24, 2025 Principal Dx & Hospital Course #1 = Principal Diagnosis (1) Chest pain: (2) CAD (coronary artery disease): (3) Dyslipidemia: (4) Hypothyroidism: (5) Sleep apnea: Plan #Chest pain | CAD 54-year-old male with severe multivessel coronary artery disease status post drug-eluting stent to OM1 and distal LAD in August 2023, status post drug-eluting stent to mid RCA in October 2023 presenting with chest pain, lightheadedness and dyspnea on exertion. Patient feels that his pain is similar to his prior cardiac events. EKG with no acute ischemic changes, troponin normal x 3. Cardiology consulted - had a stress test that exacerbated symptoms and then proceeded to heart cath. Showing moderatble but stable CAD and patent stents. Started on imdur. Discussed with patient possible other etiologies, but symptoms would not be characteristic of gallbladder disease or GERD. Asymptomatic currently, monitor symptoms and continue to discuss with PCP. Continue ASA, plavix, and metorpolol. #Hyperlipidemiapatient is intolerant to statins and Zetia. He is currently receiving Repatha injections Continue Repatha # hypothyroidismlast TSH = 2.24 in June 2024. He has been on a stable dose of Synthroid Continue Synthroid 75 mcg p.o. every morning #Sleep apneapatient is supposed to wear a device but reports he does not Encourage compliance Dispo: home today Notes For Next Care Provider Medication Changes From Visit imdur started Admission HPI Per Admitting Provider Tremaine Lindsay is a 54yo male with history of CAD, HLP, Hypothyroidism and LAWANDA (not on CPAP) presenting with chest pain. Patient had an abnormal stress echocardiogram on 08/26/2023. He had a cardiac catheterization performed which revealed severe multivessel disease. He had a PCI with drug-eluting stent placed to the OM1 and distal LAD. After his stent placement patient developed recurrent chest pain. He had a repeat catheterization performed on 10/31/2023 which again revealed severe multivessel disease, 70% mid RCA stenosis, 40 to 50% proximal LAD and 30% ostial circumflex. LAD PCI with drug-eluting stent x 1 placed to the mid RCA. Patient follows with [facility]. Last seen on November 02, 2024. Patient developed chest pain last evening 02/22/2025. The pain is left sided with radiation into the left arm and shoulder. He describes pain as burning, aching and feeling "knotted up". Pain has been persistent. Today patient has been feeling more fatigued, tired and "off". His pain has persisted throughout the day today which prompted him to come to the emergency room. He did take 1 nitroglycerin at home which provided some relief. Pain persistent. Also with mild lightheadedness. He also reports some dyspnea on exertion mainly with climbing stairs. Patient also reports that he feels "emotional" which was similar to prior cardiac events. Otherwise denies fever, chills, palpitations, cough, abdominal pain, nausea, vomiting, diaphoresis. No additional complaints. voices concern as patient's cardiac markers and EKGs are typically normal however, he has had 2 prior catheterizations requiring intervention in the past. In the emergency room patient is afebrile, hemodynamically stable, mild bradycardia Discharge Exam General: NAD, VS as above Resp: normal respiratory effort, lungs clear to auscultation CV: RRR, no murmur, Abd: normal bowel sounds, non tender, soft Extremities: Moves all extremities, no edema Neuro: A&O x3, Skin: intact, no lesions noted Discharge Plan Discharge Items Patient Disposition: Home - Self-Care Reason For Visit: CHEST PAIN Discharge Diagnosis: Chest Pain Activity: Resume your previous activity Weightbearing: Full weightbearing Non-emergency contact: Primary Care Provider Call non-emergency contact if: you have any medication questions, your symptoms worsen, your pain is not controlled and your temperature is above 101.5 Follow-up/Referrals: Zacarias Grayson III, CRNP [Primary Care Provider] - 03/02/25 9:20 am (PCP follow up: 03/02 @9:20am) Diet: Heart Healthy Add Attending Provider Instructions: Mr. Lindsay You were hospitalized after having ongoing chest pain. Your troponin levels were normal. You were seen by Cardiology who recommended a stress test that turned in to a heart Cath that showed non obstructive CAD and your previous stents were patent. If pain reoccurs - non cardiac causes should be explored. Please monitor for when your pain occurs if there are triggers. If it your gallbladder, I would expect it to get worse after fatty or fried foods. If it from heart burn, I would expect it to get worse You were started on Imdur to help with chest pain. Most common side effects are headache and lightheadedness. Please continue to monitor your symptoms and discuss with your PCP. There are insutrctions about your cath below - mainly no driving for 48 hours. No lifiting over 10 pounds for 5 days. Activity: You can do normal everyday activities as your body allows. Take rest breaks if you feel tired. Do not overexert. Stop activity if you have pain, shortness of breath or feel dizzy. Follow-up appointments: Make an appointment with your primary care physician within one week of disch arge. A copy of this summary will be sent to them. Every time you see your primary care physician, or any other doctor, bring your medication list, and a list of questions. CONTACT YOUR PRIMARY CARE PROVIDER if you experience any of the following: Shortness of breath or difficulty breathing Fevers or chills Feeling tired with normal activity or experiencing dizziness or fainting Difficulty following your treatment plan, or difficulty taking medications CALL 911 OR GO TO THE EMERGENCY DEPARTMENT if you experience any of the follo wing: Severe abdominal pain or nausea/vomiting Severe chest pain, or chest pain that radiates (moves) to your jaw or arm Sudden, severe shortness of breath or difficulty breathing Thank you for allowing us to participate in your care. Addtl Marine Tower Operator Provider Instructions: ACTIVITY RECOMMENDATIONS: Excess manipulation of the wrist should be avoided for the next 24-48 hours. * No lifting over 2 pounds (approximately a 1/2 gallon of milk) with the utilized arm for 24 hours. No lifting over 10 pounds for 5 days. * No strenuous activity such as bowling or tennis for 3 days. * Keep the site of the procedure covered with a bandage for 24 hours. *You may shower the day after the procedure. Do not take a tub bath or submerge the puncture site in water for the next 3 days. *Do not operate any motorized equipment for 3 days. SPECIAL CARE INSTRUCTIONS: The site may be slightly bruised and sore following your procedure. Should any of the following occur, contact the DrEsvin who performed your procedure. 1. Redness/inflammation, swelling, chills, or fever, or colored drainage at procedure site within 3-7 days after your procedure. 2. Coldness, discoloration, ongoing numbness, severe pain, or swelling. Expect mild tingling of hand and tenderness at the puncture site for up to three days. If this persists beyond three days, or other symptoms develop, notify the Dr. who performed your procedure. BLEEDING: If the procedure site on your wrist begins to bleed, do not panic 1. Place 1 or 2 fingers firmly just slightly above the insertion site to stop the bleeding. You may be able to feel your pulse as you hold pressure. 2. Lift your finger after 5 minutes to see if the bleeding has stopped. 3. Once the bleeding has stopped, gently wipe the wrist area clean with a bandage. * If the bleeding from your wrist does not stop after 10 minutes, or if there is a large amount of bleeding or spurting, call 911 (do not drive yourself to the hospital). SKIN IRRITATION: * You may experience some redness and/or swelling in the area where radiation was administered. If any skin irritation occurs, please contact your family physician. FOLLOW UP VISIT: Keep any scheduled doctor appointments. Pending Studies at Discharge: No Stand-Alone Forms: My [facility] Medications and DC Order Prescriptions: New isosorbide mononitrate 30 mg Tablet Extended Release 24 Hr 30 mg PO QAM Qty: 30 0RF Continued levothyroxine 75 mcg capsule 75 mcg PO QAM Qty: 90 3RF finasteride 5 mg tablet 5 mg PO HS Qty: 90 3RF alfuzosin [Uroxatral] 10 mg tablet extended release 24 hr 10 mg PO HS Qty: 90 3RF Rx Instructions: administer after the same meal each day cholecalciferol (vitamin D3) 50 mcg (2,000 unit) capsule 50 mcg PO QAM Proctofoam HC 1-1 % foam 1 applic UT BID PRN (Reason: hemorrhoids) Qty: 10 2RF Medical Marijuana 10 mg PO UD PRN (Reason: Pain/stress) Patient Comments: uses oils-uses every evening also uses vape nitroglycerin 0.4 mg tablet, sublingual 0.4 mg sublingual Q5M PRN (Reason: chest pain) Qty: 25 0RF clopidogrel [Plavix] 75 mg Tablet 75 mg PO QAM aspirin 81 mg tablet,delayed release (DR/EC) 81 mg PO HS loratadine 10 mg Tablet 10 mg PO HS metoprolol succinate 25 mg tablet extended release 24 hr 25 mg PO QAM lutein 20 mg Capsule 20 mg PO QAM Rx Instructions: give with meal/snack Repatha SureClick 140 mg/mL pen injector 140 mg SUBCUT .EVERY 2 WEEKS Discharge Orders: Discharge Order (Routine); Ordered 02/24/25 Ordered By: Eboni Farmer Admission Data Admit Date/Time: 02/23/25 22:14 Attending Provider: Le Hyman Admit Provider: Yun Uribe Primary Care Provider: Zacarias Grayson III Other Providers: Irina Scales; Josh Salcedo; Darron Palma; Moshe Osorio; Cj Drew; Nba Coleman; Malia Carpenter; Sheila Kauffman; Yany Antoine; Cami Marti; Irina Rowley; Graham Wright; Henry Carvajal; Radha Giles; Candy Iverson; Jennifer Meyers; Cande Jorgensen; Darrion Alfaro; Vaishnavi Campos; Luisana Carrillo; Kaden Warren; Micky Gandhi; Yun Uribe Hospital Stay Data Consultations 02/23/25 22:12 ED Decision to Admit Stat 02/23/25 22:14 Consult Cardiology Routine 02/24/25 12:26 Consult Cardiac Catheterization Routine Procedures Performed Operation Date: 02/24/25 12:30 Actual Procedures p Cath, Left with Cors and Vent - Moshe Osorio DO s Cineradiography w/Routine Exam - Moshe Osorio DO s Ultrasound Vascular Access - aKden Cabrera MD Diagnostic Imagining Performed 02/24/25 12:15 CL Cath Imgs for PACS use only Stat Pending Results Patient Have Any Pending Studies at Discharge: No Discharge Instructions Given to Patient (Per Discharging Provider) Mr. Lindsay You were hospitalized after having ongoing chest pain. Your troponin levels were normal. You were seen by Cardiology who recommended a stress test that turned in to a heart Cath that showed non obstructive CAD and your previous stents were patent. If pain reoccurs - non cardiac causes should be explored. Please monitor for when your pain occurs if there are triggers. If it your gallbladder, I would expect it to get worse after fatty or fried foods. If it from heart burn, I would expect it to get worse You were started on Imdur to help with chest pain. Most common side effects are headache and lightheadedness. Please continue to monitor your symptoms and discuss with your PCP. There are insutrctions about your cath below - mainly no driving for 48 hours. No lifiting over 10 pounds for 5 days. Activity: You can do normal everyday activities as your body allows. Take rest breaks if you feel tired. Do not overexert. Stop activity if you have pain, shortness of breath or feel dizzy. Follow-up appointments: Make an appointment with your primary care physician within one week of discharge. A copy of this summary will be sent to them. Every time you see your primary care physician, or any other doctor, bring your medication list, and a list of questions. CONTACT YOUR PRIMARY CARE PROVIDER if you experience any of the following: Shortness of breath or difficulty breathing Fevers or chills Feeling tired with normal activity or experiencing dizziness or fainting Difficulty following your treatment plan, or difficulty taking medications CALL 911 OR GO TO THE EMERGENCY DEPARTMENT if you experience any of the following: Severe abdominal pain or nausea/vomiting Severe chest pain, or chest pain that radiates (moves) to your jaw or arm Sudden, severe shortness of breath or difficulty breathing Thank you for allowing us to participate in your care. Total Time Total Time Spent Total Time Spent (In Minutes): Time spent day of discharge 40 minutes including direct patient care, medication reconciliation, documentation, review of labs and images, and coordination of care. Case discussed with Dr. Osorio Coding Level of Care Code 13355 INP/OBS DISCH >30 MIN Diagnoses Chest pain R07.89 Chest pain type: other chest pain Coronary artery disease involving [place] coronary artery of [place] heart with angina pectoris I25.119 Associated angina: with unspecified form of angina Coronary Disease-Associated Artery/Lesion type: [place] artery [place] vs. transplanted heart: [place] heart Dyslipidemia E78.5 Hypothyroidism E03.9 Sleep apnea G47.30
--- NOTE | 2025-02-24 16:32 | Electrocardiogram Report ---
Test Reason : Blood Pressure : */* mmHG Vent. Rate : 52 BPM Atrial Rate : 52 BPM P-R Int : 162 ms QRS Dur : 100 ms QT Int : 430 ms P-R-T Axes : 28 59 65 degrees QTcB Int : 399 ms Sinus bradycardia Otherwise normal ECG When compared with ECG of 23-Feb-2025 21:29, (unconfirmed) No significant change was found Confirmed by Constantin Hall ([id number]) on 02/24/2025 4:32:08 PM Referred By: REFERRED SELF Confirmed By: Constantin Hall
[2025-02-24] MEDS: ISOSORBIDE MONO EXTENDED REL 30 MG TABCR PO SCH (16:33)
[2025-02-24 18:33] VITALS: PULSE 62; RESP 20; TEMP 98.2; O2SAT 97
[2025-02-24 19:36] VITALS: BP 115/76
[2025-02-24] MEDS ORDERED: LORATADINE 10 MG TAB PO SCH (21:00)
[2025-02-24] MEDS ORDERED: ASPIRIN 81 MG ECTAB PO SCH (21:00)
[2025-02-24] MEDS ORDERED: FINASTERIDE 5 MG TAB PO SCH (21:00)
--- NOTE | 2025-02-26 06:44 | Electrocardiogram Report ---
Test Reason : Blood Pressure : */* mmHG Vent. Rate : 56 BPM Atrial Rate : 56 BPM P-R Int : 156 ms QRS Dur : 82 ms QT Int : 406 ms P-R-T Axes : 35 50 72 degrees QTcB Int : 391 ms Sinus bradycardia Nonspecific T wave abnormality Abnormal ECG When compared with ECG of 01-Nov-2023 08:29, No significant change was found Confirmed by Constantin Hall ([id number]) on 02/26/2025 6:44:35 AM Referred By: REFERRED SELF Confirmed By: Constantin Hall
--- NOTE | 2025-03-01 15:42 | Electrocardiogram Report ---
Test Reason : Blood Pressure : */* mmHG Vent. Rate : 54 BPM Atrial Rate : 54 BPM P-R Int : 178 ms QRS Dur : 94 ms QT Int : 418 ms P-R-T Axes : 51 59 67 degrees QTcB Int : 396 ms Sinus bradycardia Otherwise normal ECG When compared with ECG of 24-Feb-2025 09:54, No significant change was found Confirmed by Tor Romeo ([id number]) on 03/01/2025 3:42:35 PM Referred By: REFERRED SELF Confirmed By: Tor Romeo
== END 2025-02-24 20:02 | disposition home or self-care (01) ==
LOC: ED 19:29 → 4W 19:29 → SUATTDRO 22:14 → 4W 23:08